=== PATIENT | male | born 1940 | race African-American/Black ===

== ENCOUNTER 2019-06-24 13:24 | Observation (INO) ==
[2019-06-24 13:50] LABS: Basophils # (auto) 0.03 K/uL (0-0.2); Basophils % (auto) 0.4 %; Eosinophils # (auto) 0.11 K/uL (0-0.5); Eosinophils % (auto) 1.4 %; Hematocrit (blood only) 36.2 % (42-52); Hemoglobin 11.7 g/dL (14.0-18.0); Immature Granulocytes # (auto) 0.03 K/uL (0.00-0.02); Immature Granulocytes % (auto) 0.4 %; Lymphocytes # (auto) 1.15 K/uL (1.2-3.4); Lymphocytes % (auto) 15.1 %; Mean Corpuscular Hemoglobin 22.7 pg (25-34); Mean Corpuscular Hgb Conc 32.3 g/dL (32-36); Mean Corpuscular Volume 70.3 fL (80-100); Mean Platelet Volume 9.7 fL (7.4-10.4); Monocytes # (auto) 0.66 K/uL (0.11-0.59); Monocytes % (auto) 8.6 %; Neutrophils # (auto) 5.66 K/uL (1.4-6.5); Neutrophils % (auto) 74.1 %; Platelet Count 274 K/uL (130-400); RDW Coefficient of Variation 15.6 % (11.5-14.5); RDW Standard Deviation 39.6 fL (36.4-46.3); Red Blood Count 5.15 M/uL (4.7-6.1); White Blood Count 7.64 K/uL (4.8-10.8)
[2019-06-24 14:03] LABS: Albumin Level 3.1 gm/dl (3.4-5.0); BUN Creatinine Ratio 16.6 (10-20); Calcium 9.1 mg/dl (8.5-10.1); Creatinine Clr Calc Pharmacy 31.2 ml/min; Est GFR (African American) 37.1; Potassium 4.3 mmol/L (3.5-5.1)
--- NOTE | 2019-06-24 14:09 | XRay Report ---
XR chest 1V portable CLINICAL HISTORY: weakness COMPARISON STUDY: No previous studies for comparison. FINDINGS: The cardiac and mediastinal contours are normal. There is no evidence of focal pulmonary co nsolidation. There is no evidence of failure. No pleural effusions are visualized.[There is minor lef t midlung zone atelectasis/scarring. IMPRESSION: No active disease in the chest. Electronically signed by: Milton Keyes M.D. 06/24/2019 2:08 PM
[2019-06-24 14:16] LABS: Bilirubin,Total 0.4 mg/dl (0.2-1); Globulin 3.2 gm/dl (2.5-4.0); Thyroid Stimulating Hormone 1.15 uIu/ml (0.300-4.500); Total Protein 6.3 gm/dl (6.4-8.2); Troponin I 0.091 ng/ml (0-0.045)
[2019-06-24] MEDS ORDERED: ASPIRIN CHEW 324 MG PO STA (15:13)
--- NOTE | 2019-06-24 16:31 | Ultrasound Report ---
US venous doppler LE LT CLINICAL HISTORY: swelling lle PAIN. EDEMA. COMPARISON STUDY: No previous studies for comparison. FINDINGS: Real-time and color flow Doppler imaging were performed. Flow was seen within the femoral, popliteal and calf veins with no intraluminal thrombus demonstrated. The saphenous vein is patent. IMPRESSION: No evidence of deep venous thrombosis. The above report was generated using voice recognition software. It may contain grammatical, syntax or spelling errors. Electronically signed by: Armin Culver M.D. 06/24/2019 4:30 PM
--- NOTE | 2019-06-24 19:28 | Emergency Department Note ---
Entered by Brittany King acting as a scribe for Zoran Sharp DO History of Present Illness General Chief complaint: Syncope (Near Syncope) Time Seen by Provider: 06/24/19 13:28 Source: patient History of Present Illness Onset (ago): minute(s) (prior to arrival) Location: head Pain Consistency: + other (episode) Quality: + other (near syncope) Relieved By: not by other (sitting down) Associated symptoms: + denies other symptoms (palpitations, LOC, melena, change in vision, urinary symptoms), + weakness and + other (lightheaded, dizzy, cold, clammy, leg swelling); no chest pain, no headaches, no nausea/vomiting and no shortness of breath The patient is a 78 year old male who presents to the Emergency Room with complaints of an episode of near syncope occurring prior to arrival. The patient states that this morning he wasnt feeling greatest. He states that he decided to go for a walk in the mall and when he did, he started to feel lightheaded and dizzy. He reports that he tried sitting down, but it didnt improve. He reports that he just felt weak, cold, and clammy. He states that since it did not get better, he called 911 and had EMS get him. The patient notes that he was inpatient last week at [facility] and had a cardiac catheterization done 5 days ago. He notes that it was clean, but he was diagnosed with a peptic ulcer although he did not have an EGD done. The patient complains of swelling feet. The patient denies chest pain, palpitations, nausea, loss of conscious, melena, vomiting, headache, change in vision, shortness of breath, urinary symptoms, a history of blood clots, and recent travel. Home Medications Home Medications Medication Instructions Recorded Confirmed Type atorvastatin 20 mg PO DAILY 06/24/19 06/24/19 History carvedilol 25 mg PO BID 06/24/19 06/24/19 History clonidine HCl 0.1 mg PO DAILY 06/24/19 06/24/19 History famotidine 40 mg PO DAILY 06/24/19 06/24/19 History felodipine 10 mg PO DAILY 06/24/19 06/24/19 History isosorbide mononitrate 30 mg PO DAILY 06/24/19 06/24/19 History lisinopril 40 mg PO DAILY 06/24/19 06/24/19 History metoprolol succinate 200 mg PO DAILY 06/24/19 06/24/19 History omeprazole 40 mg PO DAILY 06/24/19 06/24/19 History prednisone 1 mg PO TID 06/24/19 06/24/19 History prednisone 5 - 20 mg PO DAILY 06/24/19 06/24/19 History sitagliptin [Januvia] 50 mg PO DAILY 06/24/19 06/24/19 History sucralfate 1 g PO .QIDM 06/24/19 06/24/19 History Allergies Allergy/AdvReac Type Severity Reaction Status Date / Time latex Allergy Intermediate Rash Unverified 06/24/19 14:59 Past Med/Surg History Medical History Hepatitis B Surgical History Hx of cardiac cath Family History Other Family history non-contributory Social History Preferred Language: Greek Communication Ability: Effective Vegetable Worker Required: No Beliefs That Will Affect Care: None Current Living Situation: Alone Other Information That Helps Us Care for You: No Feels Safe at Home: Yes Safety Concerns: Feels Safe At This Time Smoking Status: Former smoker Hx Alcohol Use: No Hx Substance Use: No Review of Systems See HPI for pertinent positives & negatives. and A total of 10 systems reviewed and were otherwise negative Physical Exam Vital Signs Vital Signs - 24 hr 06/24/19 13:29 06/24/19 13:31 06/24/19 13:39 Temperature 36.9 C Temperature Source Oral Pulse Rate 58 L 61 59 L Pulse Rate [Left] Pulse Rate from SpO2 Sensor 59 L 61 Pulse Rhythm Regular Pulse Strength Normal Respiratory Rate 17 19 20 Respiratory Effort / Characteristics Non-Labored Spontaneous Respiratory Depth Normal Respiratory Pattern Regular Blood Pressure 117/61 117/61 Blood Pressure [Left Arm] Blood Pressure Mean 81 79 Blood Pressure Mean [Left Arm] Blood Pressure Position Sitting Blood Pressure Position [Left Arm] Pulse Oximetry 95 95 95 Oxygen Delivery Method Room Air Sepsis Recent Fever Within 48 Hours No Sepsis New/Unexplained Change in Mental Status No Sepsis Action Taken by Nursing No Action Required 06/24/19 13:40 06/24/19 13:43 06/24/19 13:50 Temperature Temperature Source Pulse Rate 60 60 Pulse Rate [Left] Pulse Rate from SpO2 Sensor 60 61 Pulse Rhythm Pulse Strength Respiratory Rate 17 19 Respiratory Effort / Characteristics Respiratory Depth Respiratory Pattern Blood Pressure Blood Pressure [Left Arm] Blood Pressure Mean Blood Pressure Mean [Left Arm] Blood Pressure Position Blood Pressure Position [Left Arm] Pulse Oximetry 96 95 96 Oxygen Delivery Method Room Air Sepsis Recent Fever Within 48 Hours Sepsis New/Unexplained Change in Mental Status Sepsis Action Taken by Nursing 06/24/19 14:00 06/24/19 14:10 06/24/19 14:20 Temperature Temperature Source Pulse Rate 59 L 61 61 Pulse Rate [Left] Pulse Rate from SpO2 Sensor 59 L 61 64 Pulse Rhythm Pulse Strength Respiratory Rate 17 18 16 Respiratory Effort / Characteristics Respiratory Depth Respiratory Pattern Blood Pressure Blood Pressure [Left Arm] Blood Pressure Mean Blood Pressure Mean [Left Arm] Blood Pressure Position Blood Pressure Position [Left Arm] Pulse Oximetry 96 95 95 Oxygen Delivery Method Sepsis Recent Fever Within 48 Hours Sepsis New/Unexplained Change in Mental Status Sepsis Action Taken by Nursing 06/24/19 14:30 06/24/19 14:40 06/24/19 14:44 Temperature Temperature Source Pulse Rate 59 L 58 L 67 Pulse Rate [Left] Pulse Rate from SpO2 Sensor 59 L 58 L 67 Pulse Rhythm Pulse Strength Respiratory Rate 17 15 19 Respiratory Effort / Characteristics Respiratory Depth Respiratory Pattern Blood Pressure 121/55 L Blood Pressure [Left Arm] Blood Pressure Mean 64 Blood Pressure Mean [Left Arm] Blood Pressure Position Blood Pressure Position [Left Arm] Pulse Oximetry 95 98 98 Oxygen Delivery Method Sepsis Recent Fever Within 48 Hours Sepsis New/Unexplained Change in Mental Status Sepsis Action Taken by Nursing 06/24/19 14:50 06/24/19 15:00 06/24/19 15:01 Temperature Temperature Source Pulse Rate 59 L 60 61 Pulse Rate [Left] Pulse Rate from SpO2 Sensor 59 L 60 62 Pulse Rhythm Pulse Strength Respiratory Rate 18 16 17 Respiratory Effort / Characteristics Respiratory Depth Respiratory Pattern Blood Pressure 127/58 L Blood Pressure [Left Arm] Blood Pressure Mean 88 Blood Pressure Mean [Left Arm] Blood Pressure Position Blood Pressure Position [Left Arm] Pulse Oximetry 96 96 96 Oxygen Delivery Method Sepsis Recent Fever Within 48 Hours Sepsis New/Unexplained Change in Mental Status Sepsis Action Taken by Nursing 06/24/19 15:10 06/24/19 15:20 06/24/19 15:30 Temperature Temperature Source Pulse Rate 59 L 61 60 Pulse Rate [Left] Pulse Rate from SpO2 Sensor 60 61 63 Pulse Rhythm Pulse Strength Respiratory Rate 18 15 16 Respiratory Effort / Characteristics Respiratory Depth Respiratory Pattern Blood Pressure 120/53 L Blood Pressure [Left Arm] Blood Pressure Mean 66 Blood Pressure Mean [Left Arm] Blood Pressure Position Blood Pressure Position [Left Arm] Pulse Oximetry 96 97 96 Oxygen Delivery Method Sepsis Recent Fever Within 48 Hours Sepsis New/Unexplained Change in Mental Status Sepsis Action Taken by Nursing 06/24/19 15:31 06/24/19 15:34 06/24/19 15:40 Temperature Temperature Source Pulse Rate 61 64 Pulse Rate [Left] 62 Pulse Rate from SpO2 Sensor 62 62 Pulse Rhythm Pulse Strength Respiratory Rate 16 20 22 Respiratory Effort / Characteristics Non-Labored Spontaneous Respiratory Depth Respiratory Pattern Blood Pressure Blood Pressure [Left Arm] 120/53 L Blood Pressure Mean Blood Pressure Mean [Left Arm] 75 Blood Pressure Position Blood Pressure Position [Left Arm] Lying Pulse Oximetry 95 96 96 Oxygen Delivery Method Room Air Sepsis Recent Fever Within 48 Hours Sepsis New/Unexplained Change in Mental Status Sepsis Action Taken by Nursing 06/24/19 15:50 06/24/19 16:00 06/24/19 16:01 Temperature Temperature Source Pulse Rate 62 60 63 Pulse Rate [Left] Pulse Rate from SpO2 Sensor 61 60 62 Pulse Rhythm Pulse Strength Respiratory Rate 18 16 22 Respiratory Effort / Characteristics Respiratory Depth Respiratory Pattern Blood Pressure 125/65 Blood Pressure [Left Arm] Blood Pressure Mean 93 Blood Pressure Mean [Left Arm] Blood Pressure Position Blood Pressure Position [Left Arm] Pulse Oximetry 96 96 97 Oxygen Delivery Method Sepsis Recent Fever Within 48 Hours Sepsis New/Unexplained Change in Mental Status Sepsis Action Taken by Nursing 06/24/19 16:36 06/24/19 16:40 06/24/19 16:50 Temperature Temperature Source Pulse Rate 59 L 62 60 Pulse Rate [Left] Pulse Rate from SpO2 Sensor 59 L 63 61 Pulse Rhythm Pulse Strength Respiratory Rate 18 19 16 Respiratory Effort / Characteristics Respiratory Depth Respiratory Pattern Blood Pressure 131/65 Blood Pressure [Left Arm] Blood Pressure Mean 88 Blood Pressure Mean [Left Arm] Blood Pressure Position Blood Pressure Position [Left Arm] Pulse Oximetry 95 95 96 Oxygen Delivery Method Sepsis Recent Fever Within 48 Hours Sepsis New/Unexplained Change in Mental Status Sepsis Action Taken by Nursing 06/24/19 17:00 06/24/19 17:01 06/24/19 17:10 Temperature Temperature Source Pulse Rate 62 58 L 58 L Pulse Rate [Left] Pulse Rate from SpO2 Sensor 62 59 L 59 L Pulse Rhythm Pulse Strength Respiratory Rate 14 19 18 Respiratory Effort / Characteristics Respiratory Depth Respiratory Pattern Blood Pressure 143/69 H Blood Pressure [Left Arm] Blood Pressure Mean 98 Blood Pressure Mean [Left Arm] Blood Pressure Position Blood Pressure Position [Left Arm] Pulse Oximetry 96 96 96 Oxygen Delivery Method Sepsis Recent Fever Within 48 Hours Sepsis New/Unexplained Change in Mental Status Sepsis Action Taken by Nursing 06/24/19 17:20 06/24/19 17:30 06/24/19 17:31 Temperature Temperature Source Pulse Rate 60 66 68 Pulse Rate [Left] Pulse Rate from SpO2 Sensor 60 64 69 Pulse Rhythm Pulse Strength Respiratory Rate 16 17 23 Respiratory Effort / Characteristics Respiratory Depth Respiratory Pattern Blood Pressure 138/73 Blood Pressure [Left Arm] Blood Pressure Mean 89 Blood Pressure Mean [Left Arm] Blood Pressure Position Blood Pressure Position [Left Arm] Pulse Oximetry 95 96 97 Oxygen Delivery Method Sepsis Recent Fever Within 48 Hours Sepsis New/Unexplained Change in Mental Status Sepsis Action Taken by Nursing 06/24/19 17:40 06/24/19 17:50 06/24/19 18:00 Temperature Temperature Source Pulse Rate 61 61 56 L Pulse Rate [Left] Pulse Rate from SpO2 Sensor 61 61 57 L Pulse Rhythm Pulse Strength Respiratory Rate 17 20 17 Respiratory Effort / Characteristics Respiratory Depth Respiratory Pattern Blood Pressure 146/75 H Blood Pressure [Left Arm] Blood Pressure Mean 94 Blood Pressure Mean [Left Arm] Blood Pressure Position Blood Pressure Position [Left Arm] Pulse Oximetry 96 95 96 Oxygen Delivery Method Sepsis Recent Fever Within 48 Hours Sepsis New/Unexplained Change in Mental Status Sepsis Action Taken by Nursing 06/24/19 18:01 06/24/19 18:10 06/24/19 18:20 Temperature Temperature Source Pulse Rate 68 61 64 Pulse Rate [Left] Pulse Rate from SpO2 Sensor 69 61 62 Pulse Rhythm Pulse Strength Respiratory Rate 18 15 20 Respiratory Effort / Characteristics Respiratory Depth Respiratory Pattern Blood Pressure Blood Pressure [Left Arm] Blood Pressure Mean Blood Pressure Mean [Left Arm] Blood Pressure Position Blood Pressure Position [Left Arm] Pulse Oximetry 94 97 96 Oxygen Delivery Method Sepsis Recent Fever Within 48 Hours Sepsis New/Unexplained Change in Mental Status Sepsis Action Taken by Nursing 06/24/19 18:30 Temperature Temperature Source Pulse Rate 61 Pulse Rate [Left] Pulse Rate from SpO2 Sensor 60 Pulse Rhythm Pulse Strength Respiratory Rate 19 Respiratory Effort / Characteristics Respiratory Depth Respiratory Pattern Blood Pressure 137/74 Blood Pressure [Left Arm] Blood Pressure Mean 78 Blood Pressure Mean [Left Arm] Blood Pressure Position Blood Pressure Position [Left Arm] Pulse Oximetry 96 Oxygen Delivery Method Sepsis Recent Fever Within 48 Hours Sepsis New/Unexplained Change in Mental Status Sepsis Action Taken by Nursing GENERAL: sitting up in bed, chronically ill appearing, no acute distress, nontoxic EYE EXAM: normal conjunctiva OROPHARYNX: no exudate, no erythema, lips, buccal mucosa, and tongue normal and mucous membranes are moist NECK: supple, no nuchal rigidity, no adenopathy, non-tender LUNGS: Clear to auscultation. Normal chest wall mechanics HEART: no murmurs, S1 normal and S2 normal ABDOMEN: abdomen soft, non-tender, normo-active bowel sounds, no masses, no rebound or guarding. BACK: Back is symmetrical on inspection and there is no deformity, no midline tenderness, no CVA tenderness. SKIN: no rashes and no bruising UPPER EXTREMITIES: upper extremities are grossly normal. LOWER EXTREMITIES: No pitting edema. NEURO EXAM: Normal sensorium, cranial nerves II-XII intact, normal speech, no weakness of arms, no weakness of legs. No drift. Finger to nose intact. Gross sensation intact. Course Course ED COURSE: Vital signs were reviewed and showed situational hypertension. The patients medical record was reviewed The above diagnostic studies were performed and reviewed. ED treatments and interventions as stated above. 1328: The resident, Dulce Maria Kirk, performed her initial evaluation on the patient at this time. 1422: The patient was evaluated in room B6. A complete history and physical examination was performed. 1458: Upon reevaluation, the patient is resting comfortably. I discussed my findings with the patient and he understands and agrees with the treatment plan. Based on the patients age, coexisting illnesses, exam and lab findings the decision to treat as an inpatient was made. The patient remained stable while under my care. The patient will be evaluated for further management. 1513: I discussed the patient's case with Dr. Olmstead- [facility] [place] Hospitalist. She will evaluate the patient for further management. Administered Medications Discontinued Medications Aspirin (Aspirin) 324 mg PO NOW STA Stop: 06/24/19 15:14 Last Admin: 06/24/19 15:42 Dose: 324 mg Documented by: [id number] Medical Decision Making Differential Diagnosis Differential diagnosis includes etiologies such as benign positional vertigo, dehydration, hypovolemia, anemia, tumor, infection, hypoglycemia, electrolyte abnormalities, cardiac sources, intracerebral event, toxicologic, neurologic, as well as others were entertained. Medical Records Attestation: I reviewed the patient's medical records. Home Medications Current Medication List: was personally reviewed by me Laboratory Data Attestation: I reviewed the patient's lab results. Result diagrams: 06/24/19 13:30 06/24/19 13:30 Lab Results 06/24/19 06/24/19 06/24/19 Range/Units 13:30 13:30 17:08 WBC 7.64 (4.8-10.8) K/uL RBC 5.15 (4.7-6.1) M/uL Hgb 11.7 L (14.0-18.0) g/dL Hct 36.2 L (42-52) % MCV 70.3 L (80-100) fL MCH 22.7 L (25-34) pg MCHC 32.3 (32-36) g/dL RDW Std Deviation 39.6 (36.4-46.3) fL RDW Coeff of Derek 15.6 H (11.5-14.5) % Plt Count 274 (130-400) K/uL MPV 9.7 (7.4-10.4) fL Immature Gran % (Auto) 0.4 % Neut % (Auto) 74.1 % Lymph % (Auto) 15.1 % Wise % (Auto) 8.6 % Eos % (Auto) 1.4 % Baso % (Auto) 0.4 % Immature Gran # (Auto) 0.03 H (0.00-0.02) K/uL Neut # (Auto) 5.66 (1.4-6.5) K/uL Lymph # (Auto) 1.15 L (1.2-3.4) K/uL Wise # (Auto) 0.66 H (0.11-0.59) K/uL Eos # (Auto) 0.11 (0-0.5) K/uL Baso # (Auto) 0.03 (0-0.2) K/uL Sodium 143 (136-145) mmol/L Potassium 4.3 (3.5-5.1) mmol/L Chloride 113 H (98-107) mmol/L Carbon Dioxide 23 (21-32) mmol/L Anion Gap 8.0 (3-11) BUN 32 H (7-18) mg/dl Creatinine 1.95 H (0.6-1.4) mg/dl Est Cr Clr Drug Dosing 31.2 ml/min Est GFR ( Amer) 37.1 Est GFR (Non-Af Amer) 32.0 BUN/Creatinine Ratio 16.6 (10-20) Glucose 106 H (70-99) mg/dl Calcium 9.1 (8.5-10.1) mg/dl Total Bilirubin 0.4 (0.2-1) mg/dl AST 15 (15-37) U/L ALT 23 (12-78) U/L Alkaline Phosphatase 66 (45-117) U/L Troponin I 0.091 H* 0.093 H* (0-0.045) ng/ml Total Protein 6.3 L (6.4-8.2) gm/dl Albumin 3.1 L (3.4-5.0) gm/dl Globulin 3.2 (2.5-4.0) gm/dl Albumin/Globulin Ratio 1.0 (0.9-2) TSH 1.150 (0.300-4.500) uIu/ml Imaging Data Radiologist's Impression: Radiology results as stated below per my review and the radiologist's interpretation: XR chest 1V portable CLINICAL HISTORY: weakness COMPARISON STUDY: No previous studies for comparison. FINDINGS: The cardiac and mediastinal contours are normal. There is no evidence of focal pulmonary consolidation. There is no evidence of failure. No pleural effusions are visualized.[There is minor left midlung zone atelectasis/scarring. IMPRESSION: No active disease in the chest. Electronically signed by: Milton Keyes M.D. 06/24/2019 2:08 PM US venous doppler LE LT CLINICAL HISTORY: swelling lle PAIN. EDEMA. COMPARISON STUDY: No previous studies for comparison. FINDINGS: Real-time and color flow Doppler imaging were performed. Flow was seen within the femoral, popliteal and calf veins with no intraluminal thrombus demonstrated. The saphenous vein is patent. IMPRESSION: No evidence of deep venous thrombosis. The above report was generated using voice recognition software. It may contain grammatical, syntax or spelling errors. Electronically signed by: Armin Culver M.D. 06/24/2019 4:30 PM ECG Data Attestation: I personally reviewed and interpreted this ECG as follows: Indication: + syncope (near) and + weakness Rate (beats per minute): 56 Rhythm: + sinus bradycardia ECG ST segments: + ST depression (inferior and lateral leads) and + T-wave inversions (inferior and lateral leads) ECG Findings: + Other (QT-c normal) Comparison ECG Date: no prior available Blood Pressure Blood Pressure Findings: Elevated blood pressure Blood Pressure Disposition: elevated BP felt to be situational MDM Narrative Patient is a 78-year-old male who presents the ER for dizziness and lightheadedness with walking. Patient notes he was slightly short of breath. EMS arrived and was found to have systolic blood pressure of 80. Patient had a recent undescended discharged to an outside facility about 10 days ago and had a catheterization which was clean per report. EKG was obtained and showed ST wave changes throughout and there is no old to compare to. IV was established blood work was obtained and showed no significant leukocytosis or anemia. BMP with a creatinine 1.9 without any previous. Troponin was elevated at 0.093. TSH was unremarkable. Unable to obtain records although we tried on multiple occasions. With his presumed previous clean cath I do not think it was close enough for this troponin to be elevated secondary to this. As he was symptomatic question if he may have had an apparent rhythm but uncertain at this time. Patient family were updated bedside discussed with the hospitalist for observation. He is asymptomatic at this time. Impression & Plan Non-ST elevation MN (NSTEMI), Elevated troponin, Shortness of breath, Weakness, Lightheadedness, Abnormal ECG Discharge Plan Visit Data *Final* Discharge Date/Time: 06/24/19 19:02 Chief Complaint: Syncope (Near Syncope) ED Provider: Zoran Sharp ED Midlevel Provider: Dulce Maria Kirk Discharge Problem: Non-ST elevation MN (NSTEMI), Elevated troponin, Shortness of breath, Weakness, Lightheadedness, Abnormal ECG Patient Disposition: Admitted As Inpatient Discharge Instructions Interventions: ED Discharge Assessment Last Done: 06/24/19 19:02 The scribe's documentation has been prepared under my direction and personally reviewed by me in its entirety. I confirm that the note above accurately reflects all work, treatment, procedures, and medical decision making performed by me.
[2019-06-24] MEDS ORDERED: POLYETHYLENE (MIRALAX) 17 GM PACK PO PRN (19:31)
[2019-06-24] MEDS ORDERED: CARBOHYDRATES FOR HYPOGLYCEMIA PO PRN (19:31)
[2019-06-24] MEDS ORDERED: DEXTROSE 50% 50 ML SYRINGE IV PRN (19:31)
[2019-06-24] MEDS ORDERED: ALUMINUM/MAGNESIUM SUSP 30 ML UDC PO PRN (19:31)
[2019-06-24] MEDS ORDERED: GLUCAGON FOR INJ 1 MG VIAL SQ PRN (19:31)
[2019-06-24] MEDS ORDERED: GLUCOSE 10 TABS/TUBE PO PRN (19:31)
[2019-06-24] MEDS ORDERED: MAGNESIUM HYDROXIDE SUSP 30 ML UDC PO PRN (19:31)
[2019-06-24] MEDS ORDERED: ACETAMINOPHEN 325 MG TAB PO PRN (19:31)
[2019-06-24] MEDS ORDERED: GLUCOSE 40% GEL 15 GM TUBE PO PRN (19:31)
[2019-06-24] MEDS ORDERED: PHARMACY GLYCEMIC MGMT CONSULT PRN (19:42)
[2019-06-24 20:58] LABS: Troponin I 0.093 ng/ml (0-0.045)
[2019-06-24] MEDS: carvediloL 12.5 MG TAB PO SCH (21:06)
[2019-06-24] MEDS: SODIUM CHLORIDE 0.9% 1000ML 1,000 ML IV SCH (21:06)
[2019-06-24] MEDS: INSULIN ASPART 100 UNITS/ML 3 ML PEN SC SCH (21:48)
--- NOTE | 2019-06-25 00:07 | History & Physical Report ---
Date of Service June 25, 2019 Assessment & Plan (1) Elevated troponin: Appears to be related to demand ischemia rather than NSTEMI. Patient denies chest pain. Admit to [facility] on telemetry on observation. Vital signs every 4 hours. Troponin every 6 hours with EKG. We will considering starting heparin drip on the patient for elevated troponin and ST segment elevation in inferior lateral leads but due to patient's recent peptic ulcer discovery and no available documentation about EGD, it was risk over benefit and we decided to continue following patient troponin rather than starting heparin drip. Troponin did not significantly rise from 1330 p.m. today when was 0.0 9 to 17:08 when was 0.093. This does not appear as an NStemi, then rather as increased troponin due to poor clearance through kidneys and situation where patient has possibly acute or chronic kidney insufficiency which we cannot determine because there is no available paperwork from the past. Replenish electrolytes. TTE in a.m. Consult cardiology. DVT prophylaxis SCDs and teds since patient has peptic ulcer and EGD was not done. Full code Present on Admission?: Yes (2) Shortness of breath: As above Duo nebs PRN every 4 hours. BNP pending Chest x-ray is negative for pulmonary consolidation or congestion. DVT negative for deep Raynaud's thrombosis. Present on Admission?: Yes (3) Weakness: Physical and Occupational Therapy Present on Admission?: Yes (4) Lightheadedness: Could be result of increased dosage of patient antihypertensive medication. Patient was also hypotensive on arrival. His blood pressure was 80/60. This could be related to polypharmacy. We are holding for now : Clonidine 0.1 mg p.o. daily, lisinopril 40 mg p.o. daily, metoprolol succinate 200 mg p.o. daily. We continued: Isosorbide mononitrate 30 mg p.o. daily, carvedilol 12.5 mg p.o. twice a day-decrease the dose from 25 mg twice a day, felodipine 10 mg p.o. daily. Magnesium hydroxide 30 mils p.o. every 12 hours as needed. Continue monitoring blood pressure and blood pressure medicine as needed or increase the dose as patient can tolerate. [place] blood pressure for patient would be less than 140/85. Present on Admission?: Yes (5) Abnormal ECG: Plan to consult cardiology for further evaluation and treatment. EKG shows sinus bradycardia with ST and T wave abnormalities especially in V4 V5 and V6. Present on Admission?: Yes (6) Hepatitis B: Will check hepatitis panel and hepatitis B for quant. Plan to consult GI for peptic ulcer as well. Present on Admission?: Yes (7) Acute kidney injury: Avoid nephrotoxic agents. Continue monitoring creatinine and GFR. Avoid contrast. Present on Admission?: Yes History of Present Illness Chief Complaint: Dizziness, polypharmacy Primary Care Provider: NO PCP Patient is a 78 years old male with past medical history of hepatitis B, peptic ulcer, history of cardiac cath, non-ST segment elevation, who presented to the emergency room with complaint of lightheadedness. The patient states that this morning he took all of his pills as he supposed to and then he went to the mall where he started to feel lightheaded and dizzy patient reports that he tried to sit down but that did not help. Patient said also D that he felt weak clammy and cold. For this reason patient called 911 and EMS picked him up and brought him to the hospital. Patient was recently in fact last week to do voice and had cardiac catheterization done 5 days ago. At that time they did not find any obstruction nor nor they put any stent. He was also diagnosed with peptic ulcer even though he did not have a EGD done. Patient said at the discharge home from the [facility] today increase the dosage of his medication. Patient was afraid that this could be a reason for him feeling so lightheaded and dizzy. He said that he checked his blood pressure this morning before taking pills. He said he his blood pressure was 164/105. Labs are reviewed: Sodium 143, potassium 4.3, BUN 32, creatinine 1.95, GFR 32, troponin 0.0 91, the second troponin was 0.0 93, BNP 963 TSH 1.15. WBC 7.64, hemoglobin 11.7, hematocrit 36.2, platelets 274. Decision was made to admit patient to observation to [facility] on telemetry for elevated troponin, dizziness. Allergies Allergy/AdvReac Type Severity Reaction Status Date / Time latex Allergy Intermediate Rash Unverified 06/24/19 14:59 Home Medications Home Medications Medication Instructions Recorded Confirmed Type atorvastatin 20 mg PO DAILY 06/24/19 06/24/19 History carvedilol 25 mg PO BID 06/24/19 06/24/19 History clonidine HCl 0.1 mg PO DAILY 06/24/19 06/24/19 History famotidine 40 mg PO DAILY 06/24/19 06/24/19 History felodipine 10 mg PO DAILY 06/24/19 06/24/19 History isosorbide mononitrate 30 mg PO DAILY 06/24/19 06/24/19 History lisinopril 40 mg PO DAILY 06/24/19 06/24/19 History metoprolol succinate 200 mg PO DAILY 06/24/19 06/24/19 History omeprazole 40 mg PO DAILY 06/24/19 06/24/19 History prednisone 1 mg PO TID 06/24/19 06/24/19 History prednisone 5 - 20 mg PO DAILY 06/24/19 06/24/19 History sitagliptin [Januvia] 50 mg PO DAILY 06/24/19 06/24/19 History sucralfate 1 g PO .QIDM 06/24/19 06/24/19 History Past Med/Surg History Medical History Hepatitis B Surgical History Hx of cardiac cath Family History Other Family history non-contributory Social History Preferred Language: Hungarian Communication Ability: Effective Clinical Documentation Specialist Required: No Beliefs That Will Affect Care: None Current Living Situation: Alone Other Information That Helps Us Care for You: No Feels Safe at Home: Yes Safety Concerns: Feels Safe At This Time Smoking Status: Former smoker Hx Alcohol Use: No Hx Substance Use: No Review of Systems Review of Systems: All systems reviewed & are unremarkable except as noted in HPI & below Results & Data Vital Signs (Past 12 Hours) Vital Signs Temp Pulse Pulse Resp BP BP Pulse Ox 06/24/19 23:53 59 L 06/24/19 23:33 37.1 C 56 L 18 162/73 H 95 06/24/19 21:31 78 06/24/19 19:31 37.3 C 70 18 129/69 96 06/24/19 18:50 57 L 16 95 06/24/19 18:40 64 18 97 06/24/19 18:31 60 19 96 06/24/19 18:30 61 19 137/74 96 06/24/19 18:20 64 20 96 06/24/19 18:10 61 15 97 06/24/19 18:01 68 18 94 06/24/19 18:00 56 L 17 146/75 H 96 06/24/19 17:50 61 20 95 06/24/19 17:40 61 17 96 06/24/19 17:31 68 23 97 06/24/19 17:30 66 17 138/73 96 06/24/19 17:20 60 16 95 06/24/19 17:10 58 L 18 96 06/24/19 17:01 58 L 19 96 06/24/19 17:00 62 14 143/69 H 96 06/24/19 16:50 60 16 96 06/24/19 16:40 62 19 95 06/24/19 16:36 59 L 18 131/65 95 06/24/19 16:01 63 22 97 06/24/19 16:00 60 16 125/65 96 06/24/19 15:50 62 18 96 06/24/19 15:40 64 22 96 06/24/19 15:34 62 20 120/53 L 96 06/24/19 15:31 61 16 95 06/24/19 15:30 60 16 120/53 L 96 06/24/19 15:20 61 15 97 06/24/19 15:10 59 L 18 96 06/24/19 15:01 61 17 96 06/24/19 15:00 60 16 127/58 L 96 06/24/19 14:50 59 L 18 96 06/24/19 14:44 67 19 121/55 L 98 06/24/19 14:40 58 L 15 98 06/24/19 14:30 59 L 17 95 06/24/19 14:20 61 16 95 06/24/19 14:10 61 18 95 06/24/19 14:00 59 L 17 96 06/24/19 13:50 60 19 96 06/24/19 13:43 95 06/24/19 13:40 60 17 96 06/24/19 13:39 36.9 C 59 L 20 117/61 95 06/24/19 13:31 61 19 95 06/24/19 13:29 58 L 17 117/61 95 Code Status & VTE Plan Code Status Full code VTE Prophylaxis Plan VTE Prophylaxis will be ordered: Yes PG Care Time/CCT Total # of Minutes Spent Total Time Spent with Patient: Total time spent is greater than 50% in coordination of care (as documented) at patient's floor/unit and/or counseling patient:
[2019-06-25] MEDS: PANTOprazole 40 MG in SYRINGE 0 ML IV SCH ×2 (01:14→11:43)
[2019-06-25 01:51] LABS: Appearance Urine Clear (Clear); Bacteria Urine Automated Negative (Negative); Bilirubin Urine Negative (Negative); Blood Urine Negative (Negative); Color Urine Yellow; Glucose Urine UA 1+ (Negative); Ketones Urine Negative (Negative); Leukocyte Esterase Urine Negative (Negative); Nitrite Urine Negative (Negative); Protein Urine 1+ (Negative); RBC Urine Automated 0-4 /hpf (0-4); Specific Gravity Urine 1.019 (1.000-1.030); Urobilinogen Urine Negative (Negative)
[2019-06-25 07:13] LABS: Basophils # (auto) 0.01 K/uL (0-0.2); Basophils % (auto) 0.1 %; Eosinophils # (auto) 0.16 K/uL (0-0.5); Hematocrit (blood only) 34.1 % (42-52); Hemoglobin 11.2 g/dL (14.0-18.0); Immature Granulocytes # (auto) 0.02 K/uL (0.00-0.02); Immature Granulocytes % (auto) 0.2 %; Lymphocytes # (auto) 1.23 K/uL (1.2-3.4); Lymphocytes % (auto) 15.1 %; Mean Corpuscular Hgb Conc 32.8 g/dL (32-36); Mean Corpuscular Volume 70.2 fL (80-100); Mean Platelet Volume 9.4 fL (7.4-10.4); Monocytes % (auto) 6.1 %; Neutrophils # (auto) 6.23 K/uL (1.4-6.5); Neutrophils % (auto) 76.5 %; Platelet Count 251 K/uL (130-400); RDW Coefficient of Variation 15.5 % (11.5-14.5); RDW Standard Deviation 39.3 fL (36.4-46.3); Red Blood Count 4.86 M/uL (4.7-6.1); White Blood Count 8.15 K/uL (4.8-10.8)
[2019-06-25] MEDS: SUCRALFATE 1 GM TAB PO SCH ×2 (07:45→11:28)
[2019-06-25] MEDS: carvediloL 12.5 MG TAB PO SCH (07:46)
[2019-06-25 07:52] LABS: Albumin Level 2.8 gm/dl (3.4-5.0); BUN Creatinine Ratio 19.8 (10-20); Calcium 8.3 mg/dl (8.5-10.1); Creatinine Clr Calc Pharmacy 38.8 ml/min; Est GFR (African American) 48.2; Est GFR (Non-African American) 41.6; Potassium 3.5 mmol/L (3.5-5.1)
[2019-06-25 07:55] LABS: Estimated Average Glucose 148 mg/dl; Hemoglobin A1C 6.8 % (4.5-5.6)
[2019-06-25 07:58] LABS: Bilirubin,Total 0.5 mg/dl (0.2-1); Globulin 2.9 gm/dl (2.5-4.0); Total Protein 5.7 gm/dl (6.4-8.2); Troponin I 0.104 ng/ml (0-0.045)
--- NOTE | 2019-06-25 08:19 | CT Scan Report ---
CT abdomen w oral con only CLINICAL HISTORY: 78 years-old Male presenting with peptic ulcer. TECHNIQUE: Multidetector CT of the abdomen was performed after the administration of oral contrast on ly. IV contrast: None. One or more dose lowering techniques were used consistent with the principles of ALARA (as low as reasonably achievable), including automatic exposure control, mA or kV adjustment to individual patient size, and/or use of iterative reconstruction. COMPARISON: None. CT DOSE (mGy.cm): The estimated cumulative dose is 217.67. FINDINGS: Bench Press Operator topogram: Unremarkable. Lung bases: Mild multichamber enlargement of the heart. Coronary artery calcification. No pericardial or pleural effusion. Minimal dependent changes likely atelectasis. Liver: Congenital hypoplasia of the medial segments of the left hepatic lobe. Normal liver density. Biliary: No gross biliary ductal dilatation allowing for noncontrast technique. Normal gallbladder. Pancreas: Normal noncontrast appearance. Spleen: Normal. Splenule noted. Adrenal glands: 1.2 cm nodule consistent with benign adenoma by density in the right adrenal gland. N ormal noncontrast appearance of the left adrenal gland. Kidneys and ureters: Several renal cysts are suggested. Several have peripheral foci of calcification , likely Bosniak 2 or Bosniak 2F lesion). No nephrolithiasis or hydronephrosis. Ureters nondistended. Bowel: Normal appendix. No bowel obstruction. The stomach does not demonstrate focal wall thickening or perigastric inflammatory change. No evidence of extraluminal oral contrast to suggest perforation. Peritoneal cavity: No free fluid or intraperitoneal gas. Lymph nodes: No gross lymphadenopathy allowing for noncontrast technique. Vasculature: Atherosclerosis of the normal caliber abdominal aorta. Abdominal wall: Diastasis of the rectus abdominis. Limited loop of small bowel mildly protrudes in th e diastatic abdominal rectus in the peribronchial region. No resulting obstruction. Musculoskeletal: Degenerative changes of the spine. IMPRESSION: 1. Allowing for noncontrast technique, no gastric wall thickening or perigastric inflammatory change to suggest the site of the reported peptic ulcer. No evidence of extraluminal oral contrast to sugge st perforation. 2. Allowing for noncontrast technique, no acute intra-abdominal pathology. 3. 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 4. Extensive bilateral renal cysts, some of which are minimally complex. These are incompletely elaine acterized on this nondedicated noncontrast study. Further evaluation with renal ultrasound should be considered. 5. Mild cardiomegaly. Electronically signed by: Solomon Arellano M.D. 06/25/2019 8:17 AM
[2019-06-25] MEDS: INSULIN ASPART 100 UNITS/ML 3 ML PEN SC SCH ×2 (08:29→12:16)
[2019-06-25] MEDS ORDERED: FAMOTIDINE 20 MG TAB PO SCH (09:00)
[2019-06-25] MEDS ORDERED: FELODIPINE 5 MG TABCR PO SCH (09:00)
[2019-06-25] MEDS ORDERED: ISOSORBIDE MONO EXTENDED REL 30 MG TABCR PO SCH (09:00)
[2019-06-25] MEDS ORDERED: ATORVASTATIN 20 MG TAB PO SCH (09:00)
[2019-06-25] MEDS ORDERED: cloNIDine HCl 0.1 MG TAB PO SCH (09:00)
--- NOTE | 2019-06-25 09:34 | Cardiology Consultation ---
Date of Consultation June 25, 2019 Assessment & Plan (1) Near syncope: (2) Elevated troponin: (3) Acute kidney injury: (4) HTN (hypertension): Mr Soto is a 78-year-old -[place] male. Recently, he states that he has not followed with cardiology as an outpatient. [facility] within the last 3 weeks or so. He presented there with complaints of abdominal discomfort and he states he had a cardiac catheterization because of concerns that he had "elevated "cardiac enzymes. He now presents with having had a near syncopal episode at a local shopping mall. He states that multiple medication changes were made in terms of his antihypertensive regimen. His medication program includes carvedilol 25 mg twice daily, clonidine 0.1 mg p.o. daily, felodipine 10 mg daily, isosorbide mononitrate 30 mg daily, lisinopril 40 mg daily, and metoprolol succinate 200 mg daily. Cardiology was consulted this admission due to concern of mild elevation in his troponin in the setting of a moderate degree of renal insufficiency. His creatinine started trending toward normal. He describes having had a work-up for mild elevation in the cardiac enzymes several weeks ago, and he believes his heart arteries were "normal ". His EKG is abnormal, with repolarization changes suggestive of ischemia, versus underlying left ventricular hypertrophy is being another cause of the EKG changes. At this time, I think that obtaining the medical records from his recent admission is of utmost importance. I would like to review his recent cardiac catheterization data, echocardiogram data, and compare his current EKG to the one obtained there to see if the current changes are new or have been observed previously. 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 The discharge summary will be helpful as will help to clarify if he was really discharged on to high-dose beta-blockers, carvedilol plus metoprolol succinate. On admission, his blood pressure is relatively low with systolic reading in the 1 teens which I would speculate is very low for him, it is rebounded to a systolic reading most recently of 212/88. Primary service has already resumed his clonidine, Imdur, felodipine, and carvedilol. Carvedilol dose has been reduced from 25 twice daily to 12.5 mg twice daily. And he is no longer on metoprolol. I think this is a good change to start. I had the patient fill out a records release, and placed the order for HIM (health information management) to help obtain the records. I have changed his echocardiogram order to a limited echo to ensure that he has no new wall motion abnormalities. I reviewed the images of the noncontrast CT of the abdomen pelvis, the heart silhouette is partially visualized, and there are no findings to suggest significant pericardial effusion. In summary, the patient does have a mild elevation his troponin, and an abnormal EKG, with no symptoms suggestive angina. His symptoms of presyncope are likely due to him being on a very aggressive antihypertensive regimen which needs to be adjusted. Agree with eliminating his metoprolol succinate. Outside records will be obtained in order to review his previous echocardiogram, cardiac catheterization, and prior EKG tracing to see if the repolarization changes observed on this admission are new or old. History of Present Illness Attending Physician: Zoran Nguyen, History of Present Illness Rock Soto is a 78 year old male seen in cardiology consultation per the request of Dr Olmstead for the evaluation of presyncope, and elevated troponin. The patient does not follow with our cardiology practice. He resides in [place], [place]. He states that approximately 3 weeks ago he was admitted to [facility] having initially presented with abdominal discomfort. No records are available for review at this time, but the patient describes being told that his "cardiac enzymes were high "and therefore he underwent cardiac catheterization during that admission. He states that he was told that his coronary arteries were "normal". He was discharged with what he describes as having had multiple medication changes made. Review of his medication list reveals that he is on a very aggressive antihypertensive medication regimen. He states that since discharge there, he has had ongoing vague abdominal discomfort although it was better than when he was initially admitted to the other facility 3 weeks ago. Yesterday he was at the local shopping mall in [place] and developed generalized weakness and felt "faint" he felt as if he was going to pass out. On arrival to the emergency room initial vital signs taken on 06/24/2019 included blood pressure 117/61 sinus bradycardia at 58 bpm. His antihypertensive medications were held in the meantime. Laboratory findings are relevant for a microcytic anemia with hemoglobin of 11.2 this morning MCV 70.2. Creatinine was 1.95 on presentation yesterday, and is down to 1.57 today. Troponin I has been mildly elevated on serial measurements, with measurement of 0.091 yesterday at 1330, and 0.104 and ng/ml this morning at 649. Allergies Allergy/AdvReac Type Severity Reaction Status Date / Time latex Allergy Intermediate Rash Unverified 06/24/19 14:59 Home Medications Home Medications Medication Instructions Recorded Confirmed Type atorvastatin 20 mg PO DAILY 06/24/19 06/24/19 History carvedilol 25 mg PO BID 06/24/19 06/24/19 History clonidine HCl 0.1 mg PO DAILY 06/24/19 06/24/19 History famotidine 40 mg PO DAILY 06/24/19 06/24/19 History felodipine 10 mg PO DAILY 06/24/19 06/24/19 History isosorbide mononitrate 30 mg PO DAILY 06/24/19 06/24/19 History lisinopril 40 mg PO DAILY 06/24/19 06/24/19 History metoprolol succinate 200 mg PO DAILY 06/24/19 06/24/19 History omeprazole 40 mg PO DAILY 06/24/19 06/24/19 History prednisone 1 mg PO TID 06/24/19 06/24/19 History prednisone 5 - 20 mg PO DAILY 06/24/19 06/24/19 History sitagliptin [Januvia] 50 mg PO DAILY 06/24/19 06/24/19 History sucralfate 1 g PO .QIDM 06/24/19 06/24/19 History Patient History Medical History Hepatitis B Surgical History Hx of cardiac cath Family History Other Family history non-contributory Social History Preferred Language: Estonian Communication Ability: Effective Microwave Technician Required: No Beliefs That Will Affect Care: None Current Living Situation: Alone Other Information That Helps Us Care for You: No Feels Safe at Home: Yes Safety Concerns: Feels Safe At This Time Smoking Status: Former smoker Hx Alcohol Use: No Hx Substance Use: No Review of Systems Review of Systems: All systems reviewed & are unremarkable except as noted in HPI & below Physical Exam Physical Exam: Temp Pulse Resp BP Pulse Ox 36.8 C 63 18 212/88 H 97 06/25/19 07:37 06/25/19 07:37 06/25/19 07:37 06/25/19 07:37 06/25/19 07:37 Constitutional: WD/WN, vitals as above Respiratory: normal respiratory effort, lungs clear to auscultation Cardiovascular: RRR, no murmur, no edema Gastrointestinal (Abdomen): normal bowel sounds, soft, nontender, no hepatosplenomegaly Skin: no rashes, warm and dry Neurologic: PERRL, EOMI, accommodation nl, no face palsy, no dysarthria Results & Data Vital Signs (Past 12 Hours) Vital Signs Temp Pulse Pulse Resp BP Pulse Ox 06/25/19 07:37 36.8 C 63 18 212/88 H 97 06/25/19 04:55 37.1 C 73 19 186/72 H 95 06/24/19 23:53 59 L 06/24/19 23:33 37.1 C 56 L 18 162/73 H 95 06/24/19 21:31 78 Laboratory Results Cardiac Enzymes 06/24/19 06/24/19 06/24/19 Range/Units 13:30 17:08 19:37 AST 15 (15-37) U/L Troponin I 0.091 H* 0.093 H* 0.093 H* (0-0.045) ng/ml 06/25/19 06/25/19 Range/Units 00:51 06:49 AST 13 L (15-37) U/L Troponin I 0.091 H* 0.104 H* (0-0.045) ng/ml Lipids 06/25/19 Range/Units 06:49 Triglycerides 113 (0-150) mg/dl Cholesterol 114 (0-200) mg/dl HDL Cholesterol 55 mg/dl Cholesterol/HDL Ratio 2 CBC 06/24/19 06/25/19 Range/Units 13:30 06:49 WBC 7.64 8.15 (4.8-10.8) K/uL RBC 5.15 4.86 (4.7-6.1) M/uL Hgb 11.7 L 11.2 L (14.0-18.0) g/dL Hct 36.2 L 34.1 L (42-52) % Plt Count 274 251 (130-400) K/uL Neut # (Auto) 5.66 6.23 (1.4-6.5) K/uL Lymph # (Auto) 1.15 L 1.23 (1.2-3.4) K/uL [place] # (Auto) 0.66 H 0.50 (0.11-0.59) K/uL Eos # (Auto) 0.11 0.16 (0-0.5) K/uL Baso # (Auto) 0.03 0.01 (0-0.2) K/uL Comprehensive Metabolic Panel 06/24/19 06/25/19 Range/Units 13:30 06:49 Sodium 143 144 (136-145) mmol/L Potassium 4.3 3.5 D (3.5-5.1) mmol/L Chloride 113 H 114 H (98-107) mmol/L Carbon Dioxide 23 22 (21-32) mmol/L BUN 32 H 31 H (7-18) mg/dl Creatinine 1.95 H 1.57 H D (0.6-1.4) mg/dl Glucose 106 H 86 (70-99) mg/dl Calcium 9.1 8.3 L (8.5-10.1) mg/dl AST 15 13 L (15-37) U/L ALT 23 22 (12-78) U/L Alkaline Phosphatase 66 60 (45-117) U/L Total Protein 6.3 L 5.7 L (6.4-8.2) gm/dl Albumin 3.1 L 2.8 L (3.4-5.0) gm/dl Intake and Output 06/24/19 06/25/19 06/25/19 22:59 06:59 14:59 Intake Total 100 / 100 Output Total 200 / 500 300 / 300 Balance 100 / -400 -200 / -400 -300 / -300 Intake: Oral 100 / 100 Output: Urine 200 / 500 300 / 300 Other: Other Intake Source sips # Unmeasured Voids 1 Weight 82.4 kg 82.5 kg Diagnostic Findings EKG performed 06/24/2019 at 1327 reviewed independently revealed sinus bradycardia 56 bpm, voltage criteria for LVH, repolarization changes noted in the inferior and lateral leads in the form of T wave inversion suggestive of possible inferolateral ischemia. Left ventricular hypertrophy however is another possibility.
[2019-06-25] MEDS: SODIUM CHLORIDE 0.9% 1000ML 1,000 ML IV SCH (09:42)
[2019-06-25 09:55] LABS: Hepatitis B Surface Antigen Neg (Neg)
[2019-06-25 10:24] LABS: Hepatitis C IgG 13Yrs+Old_Rflx Neg (Neg)
--- NOTE | 2019-06-25 10:39 | Discharge Summary ---
Date of Service June 25, 2019 Admission HPI Per Admitting Provider Patient is a 78 years old male with past medical history of hepatitis B, peptic ulcer, history of cardiac cath, non-ST segment elevation, who presented to the emergency room with complaint of lightheadedness. The patient states that this morning he took all of his pills as he supposed to and then he went to the mall where he started to feel lightheaded and dizzy patient reports that he tried to sit down but that did not help. Patient said also that he felt weak clammy and cold. For this reason patient called 911 and EMS picked him up and brought him to the hospital. Patient was recently in fact last week to do voice and had cardiac catheterization done 5 days ago. At that time they did not find any obstruction nor nor they put any stent. He was also diagnosed with peptic ulcer even though he did not have a EGD done. Patient said at the discharge home from the [facility] today increase the dosage of his medication. Patient was afraid that this could be a reason for him feeling so lightheaded and dizzy. He said that he checked his blood pressure this morning before taking pills. He said he his blood pressure was 164/105. Labs are reviewed: Sodium 143, potassium 4.3, BUN 32, creatinine 1.95, GFR 32, troponin 0.0 91, the second troponin was 0.0 93, BNP 963 TSH 1.15. WBC 7.64, hemoglobin 11.7, hematocrit 36.2, platelets 274. Decision was made to admit patient to observation to [facility] on telemetry for elevated troponin, dizziness. Principal Diagnosis Hypotension Discharge Exam Constitutional WD/WN, vitals as above Respiratory normal respiratory effort, lungs clear to auscultation Cardiovascular RRR, no murmur, no edema Gastrointestinal (Abdomen) normal bowel sounds, soft, nontender, no hepatosplenomegaly Skin no rashes, warm and dry Psychiatric A+Ox3, euthymic affect Discharge Data Allergies Allergy/AdvReac Type Severity Reaction Status Date / Time latex Allergy Intermediate Rash Unverified 06/24/19 14:59 Consultations 06/24/19 15:13 ED Decision to Admit Stat ED Decision to Admit Stat 06/25/19 08:57 Consult Health Information Management Routine 06/25/19 09:50 Consult Cardiology Routine Ordered Studies 06/24/19 15:13 US venous doppler LE LT Stat 06/25/19 00:21 CT abdomen w oral con only Routine Hospital Course (1) Near syncope: 78 year old male with past medical history of HTN, hepatitis B, peptic ulcer, history of cardiac catheterization 10 days ago presented for near syncopal event. Near-Syncope: - Pt found on admission to have systolics in the 80s with associated weakness. Pt was found to be on 6 different antihypertensives including two different beta blockers (clonidine, lisinopril, metoprolol, felodipine, isosorbide mononitrate, carvedilol). - Pt returned to normotensive with d/c of lisinopril and metoprolol. - Will continue to hold in outpatient until patient has an opportunity to see his PCP to discuss further titration. - Cardiac workup included EKG which showed some ST elevations which diminished with repeat EKGS, and troponins elevated to 0.090-0.10 without further elevation . - Echocardiogram showed no hypokinesis and no pericardial effusion. - By this time patient's symptoms had improved with fluids and d/c of several of his antihypertensives as above. Elevated troponin: - Appears to be either related to demand ischemia in the setting of hypoperfusion or poor clearance from renal function rather than NSTEMI. Patient denies chest pain. Shortness of breath: - Chest x-ray was negative for pulmonary consolidation or congestion. - Venous dopplers negative for DVT. - again likely due to demand ischemia. History of Peptic Ulcer: - will continue home omeprazole 40mg daily and he will follow with PCP regarding further management. - no signs or symptoms of bleeding here. - pt stable on discharge. - has EGD/colonoscopy with GI in July. Acute kidney injury: - Cr decreased 1.9 -> 1.57 while here with IV hydration. - Will follow up with PCP. - will continue to hold lisinopril until PCP appointment. Hx of Polymyalgia Rheumatica: - is on a steroid taper per his PCP; continue. (2) HTN (hypertension): (3) Acute kidney injury: (4) Elevated troponin: (5) Hepatitis B: (6) Hx of cardiac cath: Total Time Total Time Spent Total Time Spent (In Minutes): >30 Discharge Plan Discharge Items Patient Disposition: Home - Self-Care Reason For Visit: PRESYNCOPE,HYPOTENSION,DIZZINESS Discharge Diagnosis: low blood pressure Condition on Discharge: Good Activity: Resume your previous activity Non-emergency contact: Primary Care Provider and Hospitalist Call non-emergency contact if: you have any medication questions, your symptoms worsen and your temperature is above 101 Follow-up/Referrals: ELIZABETH RAYO D.O. [Primary Care Provider] - (Needs follow up within the week) Diet: Carb Consistent or DM2 and Heart Healthy Addtl Attending Provider Instructions: You were admitted to the hospital due to feeling weak, and found to have a very low blood pressure when you got here. You also had some increase in your heart enzymes, so we had cardiology see you. We also did an echocardiogram of your heart to make sure it was functioning well, which it is. Cardiology felt safe to send you home on a different medication regimen as follows: 1)For your blood pressure, you will take clonidine 0.1mg daily, felodipine 10mg daily, carvedilol 12.5mg twice daily, and isosorbide mononitrate 30mg daily. We have STOPPED your metoprolol and lisinopril. You will not continue these until you see your primary care doctor. It is important that you have close follow up and see your primary care doctor within the week, before you run out of your medications at home. 2) You can continue your prednisone tapering for your polymyalgia. Talk to your primary care doctor about this taper as well. 3) Your Hgb A1c (diabetes measurement) was elevated here. However, since your sugars tend to go low sometimes we did not make any changes to your medications. You can restart your home Januvia and follow up your diabetes with your primary doctor. 4) For your belly, please continue your home ulcer medications. This includes your omeprazole 40mg daily. Pending Studies at Discharge: No Stand-Alone Forms: My [facility] walkby, Smoking Cessation Medications and DC Order Prescriptions: Continued carvedilol 25 mg tablet 25 mg PO BID RF: 0 clonidine HCl 0.1 mg tablet 0.1 mg PO DAILY RF: 0 prednisone 10 mg tablet 5 - 20 mg PO DAILY RF: 0 atorvastatin 20 mg tablet 20 mg PO DAILY RF: 0 sucralfate 1 gram tablet 1 g PO .QIDM RF: 0 famotidine 40 mg tablet 40 mg PO DAILY RF: 0 isosorbide mononitrate 30 mg tablet extended release 24 hr 30 mg PO DAILY RF: 0 omeprazole 40 mg capsule,delayed release(/EC) 40 mg PO DAILY RF: 0 prednisone 1 mg tablet 1 mg PO TID RF: 0 felodipine 10 mg tablet extended release 24 hr 10 mg PO DAILY RF: 0 Januvia 50 mg tablet 50 mg PO DAILY RF: 0 Discontinued metoprolol succinate 200 mg tablet extended release 24 hr 200 mg PO DAILY RF: 0 lisinopril 40 mg tablet 40 mg PO DAILY RF: 0 Discharge Orders: Discharge Order (Routine); Ordered 06/25/19 Ordered By: Romina Davis Admission Data Admit Date/Time: 06/24/19 18:31 Attending Provider: Zoran Nguyen Admit Provider: Price Olmstead Primary Care Provider: ELIZABETH RAYO Other Providers: Price Olmstead ; Gordon Terry Other Interventions: Discharge Summary Assessment (RN) Last Done: 06/25/19 15:51 DC Date/Time DO NOT enter until pt leaves facility: 06/25/19 16:14 Supervising Physician Co-Signing Physician Notes I personally examined the patient and verified all thompson points of history and exam, discussed case, and agree with decision making with Dr Davis. Feeling much better overall. Not at all lightheaded not at all dizzy. No chest pain no shortness of breath. Walked around the room a little bit with absolutely no symptoms, feels good enough to go home and would very much like to go home. He believes the main problem was too much medications. We discussed ongoing titration of his blood pressure, and the fact that in the hospital setting is often a difficult place to get his numbers "perfect" but with ambulatory monitoring and close follow-up with his PCP is meds can continue to be titrated to the best control he can attain. In the mGeneratory recommended 2-3 times a day random blood pressure checks and close PCP follow-uphe noted his PCP is quite attentive and very good to work with. He notes his stomach pain is getting better and he is able to eat okay. Vitals noted, in general he is awake alert pleasant no distress. HEENT normocephalic atraumatic mucous membranes moist. Breathing unlabored no accessory muscle use. Abdomen soft nondistended nontender no masses organomegaly. Syncopeappears to have been medication induced syncope. Meds have been reduced rather significantly and he is feeling better now. Given the labile nature of his blood pressure, I do harbor concerns about whether or not he has a degree of age-related autonomic insufficiencywould ask his PCP to be vigilant for this in follow-up. Hypertensionhe had fairly erratic control even while here. During the time I was talking with him his pressures were in the 1 teens over 60s type range but then just before discharge, will without us being notified, his pressures were (and asymptomatic) to 212/88. This does back the question further of autonomic insufficiencybut given that he was asymptomatic and will have very close PCP follow-up, strategy of ambulatory monitoring in a careful but quick stepwise approach to his meds appears to be most appropriate given that right now he is running erratic but at times uncontrolled ranges but with better control he also had a syncopal event landing him in the hospital. Elevated troponinuncertain significance. Certainly does not appear at all to have been an PA. Once we finally obtain the cath report, if he does have any degree of coronary disease or distal disease then it could simply be a watershed hypoperfusion from his hypotension, but at the same time it easily could be just a poor clearance issue from his kidney impairment. Elevated creatinineuncertain acuity. His significant other notes that IV diet reports hospital hurt his kidneys and she wonders if his improvement is not that he simply on his way down from that, at the same time he could have a degree of baseline CKD. We discussed having his PCP follow-up on this, given that it is improving and there is no acuity, that either looking at his current numbers compared to his baseline range (current creatinine is 1.57 down from 1.95 yesterday) or continuing to trend would be reasonable in this respect. Stable for close outpatient follow-up. Drink personally reach out to his PCP to sign out the case given the different systems, and wanting to make sure that what was done here translates well for his follow-up. Resident Activity Tracking Resident Involvement: Resident Care Provided Care Provided: [facility] Medicine
--- NOTE | 2019-06-25 10:39 | Communication Note ---
Date of Service: June 25, 2019 Repeat EKG reveals stable findings. Inferior and lateral repolarization changes are less prominant.
--- NOTE | 2019-06-25 12:06 | Pharmacy Report ---
Pharmacy Glycemic Short Note 2 - Date of Service June 25, 2019 - Glycemic Short BSG Results (Last 24 hours): 06/24/19 06/24/19 06/25/19 13:30 20:57 06:49 Glucose 106 H 86 POC Glucose 165 H 06/25/19 07:46 Glucose POC Glucose 96 OUTPATIENT ANTIDIABETIC REGIMEN: * januvia 50 mg PO daily * A1c = 6.8% on 06/25/19 ASSESSMENT: * Rock is a 78 yr old T2DM male admitted with lightheadedness and elevated troponin * A1c of 6.8% indicates adequate out patient glycemic control with Januvia * Will hold oral agents for admission and utilize SQ basal bolus insulin regimen which is the recommended regimen for inpatient glycemic control. * Will initiate weight based Novolog insulin and titrate based on BSG trends * Holding off on basal insulin due to fasting BSG of 96 mg/dL PLAN FOR INPATIENT GLYCEMIC CONTROL: * Hold outpatient oral diabetes medications * Basal insulin * none today * Bolus insulin - tighten correction factor * NovoLog per scale ACHS or Q6hrs while NPO * Goal Range: Low 110 mg/dL - High 140 mg/dL * Correction Factor: 30 mg/dL/unit * Nutritional / Prandial insulin per carb ratio of 1 unit per 12 grams CHO consumed PLAN FOR DISCHARGE: * A1c = 6.8% * Goal A1c = < 7% * Continue current outpatient regimen of Januvia 50 mg PO daily
--- NOTE | 2019-06-25 12:22 | Communication Note ---
Date of Service: June 25, 2019 Resting echocardiogram revealed moderate concentric LVH, normal resting wall motion, normal LVEF. Await records. I called the community reinvestment act officer and requested that another request made to Bryan Blandon. I believe obtaining these records would be helpful in terms of reviewing the physician report with the cardiac catheterization, and discharge medications and comparison with prior EKG tracing.
--- NOTE | 2019-06-25 16:12 | Communication Note ---
Date of Service: June 25, 2019 I have reached out to the community health nurse supervisor on [address] [place] [address] on 3 occasions to request and update on obtaining the medical records. I attempted to call [facility] personally, but was not able to get through (no answer). I personally had pt complete consent for release of records at 9:30 am this morning. Still no records available. order control clerk blood bank reaching out to refax to [facility].
--- NOTE | 2019-06-25 18:17 | Billing Data ---
Coding Level of Care Code 67356 OBS Care - Discharge
[2019-06-26] MEDS ORDERED: PANTOprazole 40 MG TAB PO SCH (09:00)
--- NOTE | 2019-06-26 11:13 | Communication Note ---
Date of Service: June 26, 2019 I called and spoke to HIM yesterday. Paper records found in the HIM office this am, having arrived just after 3 pm yesterday. Per my request they were scanned to the pt's electronic chart to allow review. 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 Other helpful piece of historical information is that the medication list as outlined in the admission history and physical included metoprolol succinate 200 mg daily. The patient however was discharged on carvedilol 25 mg twice daily, without metoprolol. Per the patient's admission medication list, it appears he perhaps was taking both the carvedilol and the metoprolol. Metoprolol was discontinued at time of discharge yesterday. Patient to follow-up with his primary product responsibility liaison Dr. Gustavo Myrick.
[2019-06-28 12:57] LABS: Hepatitis A Antibody IgM NON-REACTIVE (NON-REACTIVE); Hepatitis B Core Antibody IgM NON-REACTIVE (NON-REACTIVE)
== END 2019-06-25 16:14 | disposition home or self-care (01) ==
LOC: 2W 13:24 → ED 13:24 → SUATTDRO 18:31 → 2W 19:02
DX: N17.9 Acute kidney failure, unspecified; R55 Syncope and collapse; M62.81 Muscle weakness (generalized); Z91.040 Latex allergy status; R06.02 Shortness of breath; I95.9 Hypotension, unspecified; Z87.891 Personal history of nicotine dependence; I10 Essential (primary) hypertension; B19.10 Unspecified viral hepatitis B without hepatic coma; R79.89 Other specified abnormal findings of blood chemistry; Z79.899 Other long term (current) drug therapy

== ENCOUNTER 2021-02-20 05:56 | Inpatient (IN) ==
[2021-02-20] MEDS ORDERED: OXYMETAZOLINE 0.05% 30 ML BTL ONE (06:05)
[2021-02-20] MEDS ORDERED: NITROGLYCERIN 2% OINTMENT 30GM TUBE ONE (06:13)
[2021-02-20] MEDS ORDERED: cloNIDine HCL 0.1 MG TAB PO ONE (06:34)
[2021-02-20] MEDS ORDERED: carvediloL 25 MG TAB PO ONE (06:34)
[2021-02-20 06:50] LABS: Basophils # (auto) 0.01 K/uL (0-0.2); Basophils % (auto) 0.1 %; Eosinophils # (auto) 0.22 K/uL (0-0.5); Eosinophils % (auto) 2.2 %; Hematocrit (blood only) 35.4 % (42-52); Hemoglobin 11.1 g/dL (14.0-18.0); Immature Granulocytes # (auto) 0.03 K/uL (0.00-0.02); Immature Granulocytes % (auto) 0.3 %; Lymphocytes # (auto) 1.11 K/uL (1.2-3.4); Lymphocytes % (auto) 11.1 %; Mean Corpuscular Hemoglobin 22.8 pg (25-34); Mean Corpuscular Hgb Conc 31.4 g/dL (32-36); Mean Corpuscular Volume 72.7 fL (80-100); Mean Platelet Volume 10.2 fL (7.4-10.4); Monocytes # (auto) 0.64 K/uL (0.11-0.59); Monocytes % (auto) 6.4 %; Neutrophils # (auto) 7.96 K/uL (1.4-6.5); Neutrophils % (auto) 79.9 %; Platelet Count 195 K/uL (130-400); RDW Coefficient of Variation 15.9 % (11.5-14.5); RDW Standard Deviation 42.5 fL (36.4-46.3); Red Blood Count 4.87 M/uL (4.7-6.1); White Blood Count 9.97 K/uL (4.8-10.8)
--- NOTE | 2021-02-20 06:54 | Emergency Department Note ---
Impression & Plan Acute anterior epistaxis, Hypertensive urgency ED Provider Note NAME: EDWIN SUGGS AGE: 80 SEX: M : 1940 ARRIVES VIA: Ambulance INFORMANT: Patient, the patient's significant other ED PROVIDER(S): Ephraim Kruse DO CHIEF COMPLAINT: Epistaxis HPI: The patient is an 80-year-old male who presented to the emergency department for an evaluation of epistaxis. The patient was started on oral anticoagulation recently for diagnosis of pulmonary embolism. He started having epistaxis symptoms yesterday. The symptoms only lasted approximately 5 minutes and resolved spontaneously. The patient has never had a similar symptom in the past. He started having epistaxis again this morning which became brisk. He arrived at the emergency department via ambulance. The patient states he has no difficulty breathing at this time. He notices no abdominal pain or chest pain. He does have lower extremity swelling which is not new for him. The patient denies having any fevers. He has had no recent trauma to his nose. He states he is been compliant with all of his outpatient medication but did not take his morning medications prior to coming to the emergency department. Symptoms have significantly improved since arrival. ROS: See above HPI for pertinent positives & negatives. A total of 10 systems reviewed and were otherwise negative. PAST MEDICAL HISTORY: See Below PAST SURGICAL HISTORY: See Below FAMILY HISTORY: See Below SOCIAL HISTORY: See Below HOME MEDICATIONS: See Below ALLERGIES: See Below VITALS: See Below PHYSICAL EXAMINATION: GENERAL: The patient is awake and alert. The patient is somewhat anxious appearing. EYES: The conjunctivae are clear. The pupils are round and reactive. EARS, NOSE, MOUTH AND THROAT: The nose is without any evidence of any deformity. Clotted blood was noted in the right nares. There was no active bleeding at this time. There was no bleeding in the left nares. NECK: The neck is nontender and supple. RESPIRATORY: Normal respiratory effort is noted there is no evidence of wheezing rhonchi or rales CARDIOVASCULAR: Regular rate and rhythm noted there no murmurs rubs or gallops normal S1 normal S2. GASTROINTESTINAL: The abdomen is soft. Abdomen is nontender. MUSCULOSKELETAL/EXTREMITIES: There is no evidence of gross deformity full range of motion is noted in the hips and shoulders. SKIN: Pedal edema was noted bilaterally. NEUROLOGIC: Patient is awake alert and oriented x3. MEDICAL DECISION MAKING: The patient is an 80-year-old male who presented to the emergency department for an evaluation of epistaxis. The patient initially was felt to have anterior epistaxis of the right nares. This was treated conservatively initially but then he required nasal packing. I discussed patient's laboratory and radiographic studies with him. He did receive nitroglycerin paste prior to arrival by prehospital orders. The patient was found to have very significantly elevated blood pressure. He was given his outpatient antihypertensive medication initially but was also ordered other medications by myself. I discussed the patient's laboratory and radiographic studies with him. He still continued to have elevated blood pressure so the patient was evaluated by the [facility] for further evaluation. Triage Nursing notes reviewed. Prior medical records reviewed Vital Signs: reviewed and remarkable for elevated blood pressure. Differential diagnosis: Anterior epistaxis, coagulopathy, traumatic injury, fracture, septal hematoma, posterior epistaxis, infections, as well as other pathologies. ER treatment provided: See below Diagnostics interpreted by me: ECG: EKG was obtained in the emergency department. My interpretation is normal sinus rhythm at 67 bpm. There was no ectopy. Inferior ST abnormalities with T wave inversions were noted. This was compared to a tracing from June 252018. No significant changes were noted. Cardiac Monitoring: An order was placed for continuous cardiac monitoring. The monitor shows a rate of 75 bpm with sinus rhythm. Laboratory studies: As stated above and show below. Imaging studies: See below Consultation(s): 2476: I discussed this case with Dr. Dickinson who is on-call for the [facility]. He will evaluate the patient in the emergency department for further management and disposition. ED COURSE: Procedures: Anterior Nasal Packing Indication: Anterior epistaxis Verbal consent obtained. Risks and benefits were explained with the usual customary discussion. A time out was taken. Clots were removed with suction. The right naris was prepped with Afrin and lidocaine. A 5.5-cm nasal balloon was placed in a standard fashion. The patient tolerated this well. Hemostasis was achieved. No complications. Past Med/Surg History Medical History (Updated 02/20/21 @ 14:00 by Ephraim Kruse DO) Acute kidney injury Elevated troponin Hepatitis B History of pulmonary embolism HTN (hypertension) Hypertensive urgency Surgical History Hx of cardiac cath Family History Other Family history non-contributory Social History Smoking Status: Unknown if ever smoked Second Hand Exposure: No; Hx Alcohol Use: No Hx Substance Use: No Preferred Language: Mosotho Communication Ability: Effective Aerographer Required: No Beliefs That Will Affect Care: None Current Living Situation: Family Feels Safe at Home: No Is there a partner from a previous relationship who is making you feel unsafe now?: No Assistive Devices: Glasses Allergies Allergies Allergy/AdvReac Type Severity Reaction Status Date / Time latex Allergy Intermediate Rash Unverified 02/20/21 07:54 Home Meds Home Medications Medication Instructions Recorded Confirmed atorvastatin 20 mg tablet 20 mg PO DAILY 06/24/19 02/20/21 carvedilol 25 mg tablet 25 mg PO BID 06/24/19 02/20/21 isosorbide mononitrate 30 mg 30 mg PO DAILY 06/24/19 02/20/21 tablet,extended release 24 hr prednisone 1 mg tablet 1 mg PO TID 06/24/19 02/20/21 sitagliptin 50 mg tablet (Januvia) 50 mg PO DAILY 06/24/19 02/20/21 apixaban 5 mg tablet (Eliquis) 5 mg PO BID 02/20/21 02/20/21 doxycycline hyclate 100 mg tablet 100 mg PO DAILY 02/20/21 02/20/21 mecobalamin (vitamin B12) 1,000 1,000 mcg PO DAILY 02/20/21 02/20/21 mcg chewable tablet (B12 Active) pantoprazole 40 mg tablet,delayed 40 mg PO DAILY 02/20/21 02/20/21 release potassium chloride 20 mEq 20 meq PO DAILY 02/20/21 02/20/21 tablet,extended release(part/cryst) Results & Data (ED) Vital Signs Vital Signs - 24 hr 02/20/21 05:52 02/20/21 06:43 02/20/21 07:09 Temperature 37.1 C Temperature Source Oral Pulse Rate 67 64 61 Pulse Rate [Apical] Pulse Rate from SpO2 Sensor 62 Respiratory Rate 16 16 16 Respiratory Effort / Characteristics Respiratory Depth Respiratory Pattern Blood Pressure 219/75 H 226/106 H Blood Pressure [Right Arm] Blood Pressure Mean 123 146 Blood Pressure Mean [Right Arm] Pulse Oximetry 94 94 96 Oxygen Delivery Method Room Air Room Air Sepsis Recent Fever Within 48 Hours No Sepsis New/Unexplained Change in Mental Status No Sepsis Action Taken by Nursing No Action Required 02/20/21 07:11 02/20/21 08:01 02/20/21 08:29 Temperature Temperature Source Pulse Rate 66 67 Pulse Rate [Apical] 63 Pulse Rate from SpO2 Sensor 67 67 Respiratory Rate 16 13 Respiratory Effort / Characteristics Respiratory Depth Respiratory Pattern Blood Pressure 248/111 H 254/107 H Blood Pressure [Right Arm] 226/106 H Blood Pressure Mean 156 156 Blood Pressure Mean [Right Arm] 146 Pulse Oximetry 97 97 Oxygen Delivery Method Sepsis Recent Fever Within 48 Hours Sepsis New/Unexplained Change in Mental Status Sepsis Action Taken by Nursing 02/20/21 08:30 02/20/21 09:24 02/20/21 09:30 Temperature Temperature Source Pulse Rate 65 69 70 Pulse Rate [Apical] 68 Pulse Rate from SpO2 Sensor 67 69 70 Respiratory Rate 19 19 16 Respiratory Effort / Characteristics Non-Labored Respiratory Depth Normal Respiratory Pattern Regular Blood Pressure 254/105 H 225/101 H 222/103 H Blood Pressure [Right Arm] 254/105 H Blood Pressure Mean 154 142 142 Blood Pressure Mean [Right Arm] 154 Pulse Oximetry 97 98 98 Oxygen Delivery Method Room Air Sepsis Recent Fever Within 48 Hours Sepsis New/Unexplained Change in Mental Status Sepsis Action Taken by Nursing 02/20/21 10:00 Temperature Temperature Source Pulse Rate 70 Pulse Rate [Apical] Pulse Rate from SpO2 Sensor Respiratory Rate 17 Respiratory Effort / Characteristics Respiratory Depth Respiratory Pattern Blood Pressure 212/91 H Blood Pressure [Right Arm] Blood Pressure Mean 131 Blood Pressure Mean [Right Arm] Pulse Oximetry Oxygen Delivery Method Sepsis Recent Fever Within 48 Hours Sepsis New/Unexplained Change in Mental Status Sepsis Action Taken by Intermediate Medications Current Medication List: was personally reviewed by me Laboratory Data Attestation: I reviewed the patient's lab results. Result diagrams: 02/20/21 06:00 02/20/21 06:00 Lab Results 02/20/21 02/20/21 02/20/21 Range/Units 06:00 06:00 06:00 WBC 9.97 (4.8-10.8) K/uL RBC 4.87 (4.7-6.1) M/uL Hgb 11.1 L (14.0-18.0) g/dL Hct 35.4 L (42-52) % MCV 72.7 L (80-100) fL MCH 22.8 L (25-34) pg MCHC 31.4 L (32-36) g/dL RDW Std Deviation 42.5 (36.4-46.3) fL RDW Coeff of Derek 15.9 H (11.5-14.5) % Plt Count 195 (130-400) K/uL MPV 10.2 (7.4-10.4) fL Immature Gran % (Auto) 0.3 % Neut % (Auto) 79.9 % Lymph % (Auto) 11.1 % Todd % (Auto) 6.4 % Eos % (Auto) 2.2 % Baso % (Auto) 0.1 % Neut # (Auto) 7.96 H (1.4-6.5) K/uL Lymph # (Auto) 1.11 L (1.2-3.4) K/uL Todd # (Auto) 0.64 H (0.11-0.59) K/uL Eos # (Auto) 0.22 (0-0.5) K/uL Baso # (Auto) 0.01 (0-0.2) K/uL Immature Gran # (Auto) 0.03 H (0.00-0.02) K/uL PT 10.9 (9.0-12.0) Seconds INR 1.1 (0.9-1.1) APTT 31.0 (21.0-31.0) Seconds PTT Ratio 1.2 Sodium 144 (136-145) mmol/L Potassium 4.6 (3.5-5.1) mmol/L Chloride 113 H (98-107) mmol/L Carbon Dioxide 30 (21-32) mmol/L Anion Gap 1.0 L (3-11) BUN 30 H (7-18) mg/dl Creatinine 1.70 H (0.6-1.4) mg/dl Est Cr Clr Drug Dosing 38.2 ml/min Est GFR ( Amer) 43.2 ml/min Est GFR (Non-Af Amer) 37.3 ml/min BUN/Creatinine Ratio 17.9 (10-20) Glucose 113 H (70-99) mg/dl Calcium 8.6 (8.5-10.1) mg/dl Total Bilirubin 0.4 (0.2-1) mg/dl AST 9 L (15-37) U/L ALT 20 (12-78) U/L Alkaline Phosphatase 65 (45-117) U/L Troponin I 0.115 H* (0-0.045) ng/ml Total Protein 6.0 L (6.4-8.2) gm/dl Albumin 3.0 L (3.4-5.0) gm/dl Globulin 3.0 (2.5-4.0) gm/dl Albumin/Globulin Ratio 1.0 (0.9-2) Lipase 312 (73-393) U/L COVID-19 Eval Order SARS-CoV-2 (PCR) (Negative) 02/20/21 02/20/21 Range/Units 09:05 09:05 WBC (4.8-10.8) K/uL RBC (4.7-6.1) M/uL Hgb (14.0-18.0) g/dL Hct (42-52) % MCV (80-100) fL MCH (25-34) pg MCHC (32-36) g/dL RDW Std Deviation (36.4-46.3) fL RDW Coeff of Derek (11.5-14.5) % Plt Count (130-400) K/uL MPV (7.4-10.4) fL Immature Gran % (Auto) % Neut % (Auto) % Lymph % (Auto) % Todd % (Auto) % Eos % (Auto) % Baso % (Auto) % Neut # (Auto) (1.4-6.5) K/uL Lymph # (Auto) (1.2-3.4) K/uL Todd # (Auto) (0.11-0.59) K/uL Eos # (Auto) (0-0.5) K/uL Baso # (Auto) (0-0.2) K/uL Immature Gran # (Auto) (0.00-0.02) K/uL PT (9.0-12.0) Seconds INR (0.9-1.1) APTT (21.0-31.0) Seconds PTT Ratio Sodium (136-145) mmol/L Potassium (3.5-5.1) mmol/L Chloride (98-107) mmol/L Carbon Dioxide (21-32) mmol/L Anion Gap (3-11) BUN (7-18) mg/dl Creatinine (0.6-1.4) mg/dl Est Cr Clr Drug Dosing ml/min Est GFR ( Amer) ml/min Est GFR (Non-Af Amer) ml/min BUN/Creatinine Ratio (10-20) Glucose (70-99) mg/dl Calcium (8.5-10.1) mg/dl Total Bilirubin (0.2-1) mg/dl AST (15-37) U/L ALT (12-78) U/L Alkaline Phosphatase (45-117) U/L Troponin I (0-0.045) ng/ml Total Protein (6.4-8.2) gm/dl Albumin (3.4-5.0) gm/dl Globulin (2.5-4.0) gm/dl Albumin/Globulin Ratio (0.9-2) Lipase (73-393) U/L COVID-19 Eval Order Covid19 at [facility] SARS-CoV-2 (PCR) NEGATIVE (Negative) Administered Medications Nicardipine HCl 25 mg/ Sodium (Chloride) 250 mls @ 50 mls/hr IV .Q5H NAJMA; Protocol Stop: 02/21/21 10:29 Last Titration: 02/20/21 16:49 Dose: 2.5 mg/hr, 25 mls/hr Documented by: [id number] Titration: 02/20/21 14:21 Dose: 5 mg/hr, 50 mls/hr Documented by: [id number] Titration: 02/20/21 13:48 Dose: 0 mg/hr, 0 mls/hr Documented by: [id number] Admin: 02/20/21 10:37 Dose: 5 mg/hr, 50 mls/hr Documented by: [id number] Cosigned by: [id number] Insulin Aspart (Insulin Aspart 100 Units/Ml 3 Ml Pen) 0 units SC Q6 NAJMA Stop: 03/22/21 12:59 Last Admin: 02/20/21 13:33 Dose: Not Given Documented by: [id number] Cosigned by: [id number] Morphine Sulfate (Morphine Sulfate 2 Mg/Ml Carp) 2 mg IV Q4H PRN PRN Reason: Pain Stop: 03/06/21 11:45 Last Admin: 02/20/21 15:04 Dose: 2 mg Documented by: [id number] Ondansetron HCl (Ondansetron Inj 2 Mg/Ml 2 Ml Vial) 4 mg IV Q6H PRN PRN Reason: Nausea And Vomiting Stop: 03/22/21 16:52 Last Admin: 02/20/21 17:05 Dose: 4 mg Documented by: [id number] Prednisone (Prednisone 1 Mg Tab) 1 mg PO TID NAJMA Stop: 03/22/21 13:59 Last Admin: 02/20/21 13:57 Dose: 1 mg Documented by: [id number] Discontinued Medications Acetaminophen (Acetaminophen 500 Mg Tab) 1,000 mg PO NOW STA Stop: 02/20/21 08:51 Last Admin: 02/20/21 08:58 Dose: 1,000 mg Documented by: [id number] Amlodipine Besylate (Amlodipine Besylate 5 Mg Tab) 5 mg PO NOW ONE Stop: 02/20/21 13:17 Last Admin: 02/20/21 13:57 Dose: 5 mg Documented by: [id number] Carvedilol (Carvedilol 25 Mg Tab) 25 mg PO NOW ONE Stop: 02/20/21 06:35 Last Admin: 02/20/21 06:50 Dose: 25 mg Documented by: [id number] Cephalexin HCl (Cephalexin 250 Mg Cap) 500 mg PO NOW ONE Stop: 02/20/21 07:30 Last Admin: 02/20/21 07:52 Dose: 500 mg Documented by: [id number] Clonidine HCl (Clonidine Hcl 0.1 Mg Tab) 0.1 mg PO NOW ONE Stop: 02/20/21 06:35 Last Admin: 02/20/21 06:47 Dose: 0.1 mg Documented by: [id number] Hydralazine HCl (Hydralazine Hcl 20 Mg/Ml Vial) 5 mg IV NOW ONE Stop: 02/20/21 08:44 Last Admin: 02/20/21 08:58 Dose: 5 mg Documented by: [id number] Hydralazine HCl (Hydralazine Hcl 20 Mg/Ml Vial) Confirm Administered Dose 20 mg .ROUTE .STK-MED ONE Stop: 02/20/21 13:30 Last Increment: 02/20/21 13:31 Dose: 5 mg Documented by: [id number] Isosorbide Mononitrate (Isosorbide Todd Extended Rel 30 Mg Tabcr) 30 mg PO NOW ONE Stop: 02/20/21 07:30 Last Admin: 02/20/21 07:52 Dose: 30 mg Documented by: [id number] Morphine Sulfate (Morphine Sulfate 2 Mg/Ml Carp) 2 mg IV NOW STA Stop: 02/20/21 10:27 Last Admin: 02/20/21 10:42 Dose: 2 mg Documented by: [id number] Nitroglycerin (Nitroglycerin 2% Ointment 30gm Tube) Confirm Administered Dose 18 inch .ROUTE .STK-MED ONE Stop: 02/20/21 06:14 Last Admin: 02/20/21 06:20 Dose: 1 inch Documented by: [id number] Oxymetazoline HCl (Oxymetazoline 0.05% 30 Ml Btl) 1 sprays NA NOW ONE Stop: 02/20/21 06:06 Last Admin: 02/20/21 06:20 Dose: Not Given Documented by: [id number] Discharge Plan Visit Data Chief Complaint: Nose Bleed (Minor) Stated Complaint: NOSEBLEED ED Provider: Ephraim Kruse Discharge Problem: Acute anterior epistaxis, Hypertensive urgency Patient Disposition: Admitted As Inpatient Condition: Good Discharge Instructions Interventions: ED Discharge Assessment Last Done: 02/20/21 11:09
[2021-02-20 06:58] LABS: BUN Creatinine Ratio 17.9 (10-20); Calcium 8.6 mg/dl (8.5-10.1); Creatinine Clr Calc Pharmacy 38.2 ml/min; Est GFR (African American) 43.2 ml/min; Est GFR (Non-African American) 37.3 ml/min; Potassium 4.6 mmol/L (3.5-5.1)
[2021-02-20 07:01] LABS: INR 1.1 (0.9-1.1); Partial Thromboplastin Ratio 1.2; Prothrombin Time 10.9 Seconds (9.0-12.0)
[2021-02-20 07:05] LABS: Bilirubin,Total 0.4 mg/dl (0.2-1); Troponin I 0.115 ng/ml (0-0.045)
[2021-02-20] MEDS ORDERED: cephALEXin 250 MG CAP PO ONE (07:29)
[2021-02-20] MEDS ORDERED: ISOSORBIDE MONO EXTENDED REL 30 MG TABCR PO ONE (07:29)
[2021-02-20] MEDS ORDERED: hydrALAZINE HCL 20 MG/ML VIAL IV ONE (08:43)
[2021-02-20] MEDS ORDERED: ACETAMINOPHEN 500 MG TAB PO STA (08:50)
--- NOTE | 2021-02-20 10:00 | Electrocardiogram Report ---
Test Reason : Blood Pressure : / mmHG Vent. Rate : 067 BPM Atrial Rate : 067 BPM P-R Int : 144 ms QRS Dur : 098 ms QT Int : 410 ms P-R-T Axes : 058 -14 -17 degrees QTc Int : 433 ms Normal sinus rhythm Left ventricular hypertrophy T wave inversion consider inferior ischemia When compared with ECG of 25-JUN-2019 10:32, The lateral T wave inversions have improved Confirmed by Alvaro Snyder ([id number]) on 02/20/2021 9:59:38 AM Referred By: REFERRED SELF Confirmed By:Alvaro Snyder
[2021-02-20] MEDS ORDERED: STAT IV Infusion **Titration per Protocol STA (10:04)
[2021-02-20] MEDS ORDERED: MoRPHine SULFATE 2 MG/ML CARP IV STA (10:26)
[2021-02-20] MEDS: niCARdipine 25 MG in SODIUM CHLORIDE 0.9% 240 ML IV SCH ×5 (10:37→22:44)
--- NOTE | 2021-02-20 10:44 | History & Physical Report ---
Date of Service February 20, 2021 Assessment & Plan (1) Elevated troponin: Plan: 80 y/o M Hx HTN, HLD, DM II, pulmonary emboli, CKD III, colon and prostate CA in remission. The pt was diagnosed with BL pulmonary emboli and pneumonia one week prior. He was discharged for Bogata on Eliquis and doxycycline. He developed epistaxis today and presented to the ER therefore. On arrival to the ER his SBP was over 250. He received Hydralazine and NTG but did not have a measurable response. Labs are notable for microcytic anemia which appears to be chronic and a + trop which also appears on prior labs. He denies CP, SOB or fevers at the time of admission. His R nare was packed by the ER attending. As an unrelated matter, the pt reports a recent change in bowel habits and was scheduled for an abdominal MRI in the coming weeks. 1) Epistaxis - nare is packed and we will hold Eliquis until resolved. Lowering his BP may additionally help. Hb will be trended. Elevate head of bed. 2) HTN urgency - the pt is placed on a Cardene drip with a goal SBP of 160-180. He will likely need a new med regimen upon DC. 3) BL pulmonary emboli - will need to resume anticoagulation. Considering unprovoked PEs, history of colon CA and recent change in bowel habits, we will order an abdominal MRI. We have also ordered LE Dopplers to assess clot burden. 4) PNM - will complete his course of PO doxy 5) Elevated trop - likely due to PEs. Echo is pending. Will trend for now. There are inferior inversions on an EKG which were present previously. Will cont a statin, beta joellen, Imdur. 6) Microcytic anemia - unchanged form 2018 - pt does not know etiology - will trend Hb for now. 7) DM II - sliding scale 8) HTN, HLD - now on a Cardene drip - will cont carvedilol and Imdur with parameters, cont atorvastatin 9) CKD III - function appears to be at baseline Full code - Eliquis held Total time for this admit including review of labs, meds, imaging, records - discussion with pt and ER attending - 1 hour includes critical care time. (2) HTN (hypertension): (3) Pulmonary emboli: (4) CKD (chronic kidney disease), stage III: (5) DM II (diabetes mellitus, type II), controlled: (6) Epistaxis: History of Present Illness Chief Complaint: Epistaxis Primary Care Provider: Toni Madera, DO 80 y/o M Hx HTN, HLD, DM II, pulmonary emboli, CKD III, colon and prostate CA in remission. The pt was diagnosed with BL pulmonary emboli and pneumonia one week prior. He was discharged for Bogata on Eliquis and doxycycline. He developed epistaxis today and presented to the ER therefore. On arrival to the ER his SBP was over 250. He received Hydralazine and NTG but did not have a measurable response. Labs are notable for microcytic anemia which appears to be chronic and a + trop which also appears on prior labs. He denies CP, SOB or fevers at the time of admission. His R nare was packed by the ER attending. As an unrelated matter, the pt reports a recent change in bowel habits and was scheduled for an abdominal MRI in the coming weeks. PMH: 1) HTN 2) HLD 3) DM II 4) BL pulmonary emboli 5) Colon CA - treated with surgery only 2005 6) Prostate CA - 2010 7) CKD III 8) Pulmonary emboli 9) Chronic lower extremity edema Surgical: 1) Segmental colectomy 2005 2) Prostatectomy 2010 Social: Does not drink or smoke. 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 Family: Father - HTN Mother - melanoma Allergies Allergy/AdvReac Type Severity Reaction Status Date / Time latex Allergy Intermediate Rash Unverified 02/20/21 07:54 Home Medications Medication Instructions Recorded Confirmed Type atorvastatin 20 mg tablet 20 mg PO DAILY 06/24/19 02/20/21 History carvedilol 25 mg tablet 25 mg PO BID 06/24/19 02/20/21 History isosorbide mononitrate 30 mg 30 mg PO DAILY 06/24/19 02/20/21 History tablet,extended release 24 hr prednisone 1 mg tablet 1 mg PO TID 06/24/19 02/20/21 History sitagliptin 50 mg tablet (Januvia) 50 mg PO DAILY 06/24/19 02/20/21 History apixaban 5 mg tablet (Eliquis) 5 mg PO BID 02/20/21 02/20/21 History doxycycline hyclate 100 mg tablet 100 mg PO DAILY 02/20/21 02/20/21 History mecobalamin (vitamin B12) 1,000 1,000 mcg PO DAILY 02/20/21 02/20/21 History mcg chewable tablet (B12 Active) pantoprazole 40 mg tablet,delayed 40 mg PO DAILY 02/20/21 02/20/21 History release potassium chloride 20 mEq 20 meq PO DAILY 02/20/21 02/20/21 History tablet,extended release(part/cryst) Past Med/Surg History Medical History Acute kidney injury Elevated troponin Hepatitis B History of pulmonary embolism HTN (hypertension) Surgical History Hx of cardiac cath Family History Other Family history non-contributory Social History Smoking Status: Never smoker Hx Alcohol Use: No Hx Substance Use: No Preferred Language: Malagasy Communication Ability: Effective Personal Computer Specialist Required: No Beliefs That Will Affect Care: None Current Living Situation: Alone Feels Safe at Home: Yes Assistive Devices: None Review of Systems Review of Systems: Gen: Denies fevers, night sweats, rigors, fatigue, malaise, weight loss/gain ENT: Nose bleed which would npt stop as per HPI Eyes: Denies acute visual changes CV: Denies CP, palpitations Pulmonary: Denies SOB, cough, wheezing GI: Denies N/V, diarrhea, constipation Neuro: Denies acute or unilateral weakness, acute gait impairment, headache or acute visual changes Musculoskeletal: Denies joint pain, inflammation Endocrine: Denies polydipsia, polyuria Skin: Denies acute rashes or ulcers Physical Exam Physical Exam: General: Very pleasant, elderly M, AAO x 3, no distress ENT: No erythema or exudates, no thrush - there is packing in the L nare and some blood oozing Eyes: LORENA, EOMI Head and neck: Normocephalic, atraumatic, No JVD, neck is supple. Chest/heart: Nontender, S1,2, RRR, no murmurs, no gallops Lungs: CTAB, no wheezing or crackles Abdomen: Nontender, nondistended, BS+ Neuro: AAO x 3, speech is clear, no unilateral weakness or loss of sensation, coordination intact Musculoskeletal: No joint inflammation, muscle tenderness, FROM Skin: No acute rashes or ulcers Extremities: No clubbing, cyanosis. + edema Results & Data Results & Data ([facility]) Vital Signs (Past 12 Hours) Vital Signs Temp Pulse Pulse Resp BP BP Pulse Ox 02/20/21 08:30 68 18 254/105 H 98 02/20/21 07:11 63 226/106 H 02/20/21 06:43 64 16 94 02/20/21 05:52 98.8 F 67 16 219/75 H 94 Code Status & VTE Plan VTE Prophylaxis Plan VTE Prophylaxis will be ordered: Yes PG Care Time/CCT Total # of Minutes Spent Total Time Spent with Patient: Total time spent is greater than 50% in coordination of care (as documented) at patient's floor/unit and/or counseling patient: Coding Level of Care Code 06334 Initial Inpt Care Lvl 3 Diagnoses Elevated troponin R79.89 HTN (hypertension) I10 Pulmonary emboli I26.99 CKD (chronic kidney disease), stage III N18.30 DM II (diabetes mellitus, type II), controlled E11.9 Epistaxis R04.0
[2021-02-20] MEDS ORDERED: ICU PROTOCOL FOR HYPERGLYCEMIA PRN (11:46)
[2021-02-20] MEDS ORDERED: MoRPHine SULFATE 2 MG/ML CARP IV PRN (11:46)
[2021-02-20] MEDS ORDERED: GLUCOSE 40% GEL 15 GM TUBE PO PRN (12:56)
[2021-02-20] MEDS ORDERED: GLUCOSE 10 TABS/TUBE PO PRN (12:56)
[2021-02-20] MEDS ORDERED: CARBOHYDRATES FOR HYPOGLYCEMIA PO PRN (12:56)
[2021-02-20] MEDS ORDERED: DEXTROSE 50% 50 ML SYRINGE IV PRN (12:56)
[2021-02-20] MEDS ORDERED: GLUCAGON FOR INJ 1 MG VIAL SQ PRN (12:56)
[2021-02-20] MEDS ORDERED: amLODIPine BESYLATE 5 MG TAB PO ONE (13:16)
--- NOTE | 2021-02-20 13:17 | Critical Care Consultation ---
Date of Consultation February 20, 2021 Assessment & Plan (1) Hypertensive urgency: 80-year-old male with a history of hypertension, diabetes mellitus type 2 and recently diagnosed pulmonary emboli presenting to the hospital due to hypertension and epistaxis. We will aim for systolic blood pressures of 160-180 over the next 4 hours. Currently off nicardipine drip. We will give a one-time dose of 5 mg IV hydralazine and dose of p.o. amlodipine, 5 mg. This will be in addition to his carvedilol and Imdur. Hold anticoagulant today and restart tomorrow. Lower extremity Dopplers being completed to evaluate for DVT. Troponin is mildly elevated likely due to hypertension. Echo reviewed with evidence of severe diastolic dysfunction. Can consider diuretic therapy as needed. Lower extremities are mildly edematous. No RV dysfunction seen. LV function appears normal. Okay to start heart healthy diet. Continue ICU monitoring. Thank you for the consultation. We will continue to follow along with you while he is in the ICU. Likely transfer out tomorrow. (2) Epistaxis: (3) Pulmonary emboli: (4) Elevated troponin: History of Present Illness Reason for Consultation: Hypertensive urgency Attending Physician: Yousif Dickinson MD History of Present Illness 80-year-old male with a past medical history of diastolic heart failure (grade 1 diastolic dysfunction), mitral valve prolapse, CKD stage III and hypertension who presented to the hospital today due to epistaxis and hypertension. Roughly 1 week ago he was seen in [facility] and was diagnosed with pulmonary emboli. He developed epistaxis today and was found to have elevated systolic blood pressures in the 200s. He received nitroglycerin and hydralazine with mild improvement in blood pressure. ICU was consulted for management of nicardipine infusion. Currently denies chest pain or shortness of breath. Notably, he has a history of colon cancer and an MRI of his abdomen has been ordered by the hospitalist service. His hemoglobin is stable and is currently 11.1. Platelet count is within normal limits. INR is within normal limits. His home blood pressure medications include carvedilol 25 mg twice daily and isosorbide mononitrate 30 mg daily. Allergies Allergy/AdvReac Type Severity Reaction Status Date / Time latex Allergy Intermediate Rash Unverified 02/20/21 07:54 Home Medications Medication Instructions Recorded Confirmed Type atorvastatin 20 mg tablet 20 mg PO DAILY 11/25/19 07/24/21 History carvedilol 25 mg tablet 25 mg PO BID 06/24/19 02/20/21 History isosorbide mononitrate 30 mg 30 mg PO DAILY 06/24/19 02/20/21 History tablet,extended release 24 hr prednisone 1 mg tablet 1 mg PO TID 06/24/19 02/20/21 History sitagliptin 50 mg tablet (Januvia) 50 mg PO DAILY 06/24/19 02/20/21 History apixaban 5 mg tablet (Eliquis) 5 mg PO BID 02/20/21 02/20/21 History doxycycline hyclate 100 mg tablet 100 mg PO DAILY 02/20/21 02/20/21 History mecobalamin (vitamin B12) 1,000 1,000 mcg PO DAILY 02/20/21 02/20/21 History mcg chewable tablet (B12 Active) pantoprazole 40 mg tablet,delayed 40 mg PO DAILY 02/20/21 02/20/21 History release potassium chloride 20 mEq 20 meq PO DAILY 02/20/21 02/20/21 History tablet,extended release(part/cryst) Patient History Medical History (Updated 02/20/21 @ 13:48 by Armani Simpson MD) Acute kidney injury Elevated troponin Hepatitis B History of pulmonary embolism HTN (hypertension) Hypertensive urgency Surgical History Hx of cardiac cath Family History Other Family history non-contributory Social History Smoking Status: Unknown if ever smoked Second Hand Exposure: No; Hx Alcohol Use: No Hx Substance Use: No Preferred Language: Maori Communication Ability: Effective Dependency Case Manager Required: No Beliefs That Will Affect Care: None Current Living Situation: Family Feels Safe at Home: No Is there a partner from a previous relationship who is making you feel unsafe now?: No Assistive Devices: Glasses Review of Systems Review of Systems: All systems reviewed & are unremarkable except as noted in HPI & below Physical Exam Physical Exam: Constitutional: Patient appears to be of their stated age. Patient is in no apparent distress. Patient is well-developed. Eyes: Pupils are equal round and reactive to light. Conjunctivae are normal. Anicteric sclera. Ears nose, mouth and throat: Mallampati class 2. Right nasal packing in place. Neck: Trachea is midline. Visual inspection is normal. Respiratory: Clear to auscultation bilaterally. No use of accessory muscles. No significant clubbing noted. Cardiovascular: Regular rate and rhythm. No murmurs. 1+ pitting edema in the lower extremities bilaterally. Gastrointestinal: Normal bowel sounds, soft, nontender and nondistended. No hepatosplenomegaly noted. Musculoskeletal: No cyanosis. Patient is able to move all extremities. Strength is 5 out of 5 in the upper and lower extremities. Skin: No rashes, warm dry and intact. Neurologic: No obvious focal neurological deficits seen. Psychiatric: Alert and oriented x3 with a euthymic affect. Results & Data Results & Data ([facility]) Vital Signs (Past 12 Hours) Vital Signs Temp Pulse Pulse Resp BP BP Pulse Ox 02/20/21 11:27 75 16 165/72 H 95 02/20/21 11:00 68 168/80 H 02/20/21 10:45 67 203/91 H 02/20/21 10:30 63 67 20 214/95 H 214/95 H 99 02/20/21 10:00 70 17 212/91 H 02/20/21 09:30 70 16 222/103 H 98 02/20/21 09:24 69 19 225/101 H 98 02/20/21 08:30 65 68 19 254/105 H 254/105 H 97 02/20/21 08:29 67 13 254/107 H 97 02/20/21 08:01 66 16 248/111 H 97 02/20/21 07:11 63 226/106 H 02/20/21 07:09 61 16 226/106 H 96 02/20/21 06:43 64 16 94 02/20/21 05:52 98.8 F 67 16 219/75 H 94 vital signs, labs and imaging personally reviewed Coding Level of Care Code 13581 Inpt Consult Level 4 Diagnoses Epistaxis R04.0 Pulmonary emboli I26.99 Hypertensive urgency I16.0 Elevated troponin R79.89
[2021-02-20] MEDS ORDERED: hydrALAZINE HCL 20 MG/ML VIAL ONE (13:29)
[2021-02-20] MEDS: INSULIN ASPART 100 UNITS/ML 3 ML PEN SC SCH ×3 (13:33→20:57)
[2021-02-20] MEDS: predniSONE 1 MG TAB PO SCH ×2 (13:57→20:56)
--- NOTE | 2021-02-20 14:09 | Ultrasound Report ---
BILATERAL LOWER EXTREMITY VENOUS DOPPLER CLINICAL HISTORY: Lower extremity swelling. COMPARISON STUDY: Left lower extremity venous Doppler ultrasound June 24, 2019. TECHNIQUE: Sonography of the deep venous system of the bilateral lower extremities was performed. Co mpression and augmentation were evaluated. FINDINGS: There is no deep venous thrombus within the left lower extremity. There is age indeterminat e deep venous thrombus within the right popliteal vein. This thrombus is nonocclusive. No additional sites of deep venous thrombus are identified. IMPRESSION: Age indeterminate nonocclusive deep venous thrombus within the right popliteal vein. ACT 112: Negative or not required by law. Electronically signed by: Garrick Miles M.D. 02/20/2021 2:08 PM
--- NOTE | 2021-02-20 16:46 | Magnetic Resonance Report ---
MR abdomen wo con CLINICAL HISTORY: History of colon cancer. Change in bowel habits.. COMPARISON STUDY: CT of the abdomen June 25, 2019. TECHNIQUE: Utilizing a 1.5 Shanita magnet and dedicated coil, multiplanar, multiecho imaging of the abd omen was performed without intravenous contrast. FINDINGS: This exam is significantly compromised by respiratory motion and lack of postcontrast imagi ng. No intra or extrahepatic biliary ductal dilatation is present. Liver morphology is normal. Unenha nced images of the spleen, adrenal glands and pancreas are grossly unremarkable with the exception of several subcentimeter T2 hyperintense lesions within the pancreas suggestive of sidebranch IPMNs. No abdominal lymphadenopathy is present. The caliber of visualized small and large bowel are normal. No marrow replacement is identified within visualized skeletal structures. Numerous T2 hyperintense ketan ateral renal lesions measure up to 5.8 cm. These are suboptimally assessed on this unenhanced exam bu t likely reflect cysts. T1 hyperintense left renal lesions favor proteinaceous cyst. There is marked bilateral renal cortical thinning. There is no hydronephrosis. Cardiomegaly is noted. IMPRESSION: 1. Technically compromised exam given motion artifact and lack of postcontrast imaging. However, no s ignificant abnormality identified within the abdomen. 2. No biliary ductal dilatation. 3. Numerous suspected bilateral renal cysts. No hydronephrosis. Marked bilateral renal cortical thinn ing. ACT 112: Negative or not required by law. Electronically signed by: Garrick Miles M.D. 02/20/2021 4:45 PM
[2021-02-20] MEDS ORDERED: ONDANSETRON INJ 2 MG/ML 2 ML VIAL IV PRN (16:53)
[2021-02-20] MEDS ORDERED: Nursing to Pharmacy Communication SCH (20:00)
[2021-02-20] MEDS: carvediloL 25 MG TAB PO SCH (20:56)
[2021-02-20] MEDS ORDERED: PNEUMOCOCCAL Polysaccharide Vaccine 25mcg/0.5mL vial/Syr IM ONE (21:30)
[2021-02-21] MEDS: niCARdipine 25 MG in SODIUM CHLORIDE 0.9% 240 ML IV SCH (03:20)
[2021-02-21 05:46] LABS: Basophils # (auto) 0.01 K/uL (0-0.2); Basophils % (auto) 0.1 %; Eosinophils % (auto) 0.8 %; Hematocrit (blood only) 38.1 % (42-52); Hemoglobin 12.1 g/dL (14.0-18.0); Immature Granulocytes # (auto) 0.04 K/uL (0.00-0.02); Immature Granulocytes % (auto) 0.3 %; Lymphocytes # (auto) 0.83 K/uL (1.2-3.4); Lymphocytes % (auto) 6.3 %; Mean Corpuscular Hemoglobin 22.3 pg (25-34); Mean Corpuscular Hgb Conc 31.8 g/dL (32-36); Mean Corpuscular Volume 70.2 fL (80-100); Mean Platelet Volume 9.7 fL (7.4-10.4); Monocytes # (auto) 0.64 K/uL (0.11-0.59); Monocytes % (auto) 4.9 %; Neutrophils # (auto) 11.51 K/uL (1.4-6.5); Neutrophils % (auto) 87.6 %; Platelet Count 199 K/uL (130-400); RDW Coefficient of Variation 15.6 % (11.5-14.5); RDW Standard Deviation 39.6 fL (36.4-46.3); Red Blood Count 5.43 M/uL (4.7-6.1); White Blood Count 13.13 K/uL (4.8-10.8)
[2021-02-21 06:26] LABS: BUN Creatinine Ratio 19.6 (10-20); Calcium 9.1 mg/dl (8.5-10.1); Creatinine Clr Calc Pharmacy 49.9 ml/min; Est GFR (African American) 67.1 ml/min; Est GFR (Non-African American) 57.9 ml/min; Magnesium 2.3 mg/dl (1.8-2.4); Potassium 3.7 mmol/L (3.5-5.1)
[2021-02-21 06:29] LABS: Phosphorus 3.5 mg/dl (2.5-4.9); Troponin I 0.204 ng/ml (0-0.045)
[2021-02-21] MEDS: ACETAMINOPHEN 500 MG TAB PO PRN ×2 (06:35→22:30)
[2021-02-21] MEDS: carvediloL 25 MG TAB PO SCH ×2 (08:16→23:22)
[2021-02-21] MEDS: CYANOCOBALAMIN 500 MCG TABLET (VITAMIN B-12) PO SCH (08:16)
[2021-02-21] MEDS: ATORVASTATIN 20 MG TAB PO SCH (08:16)
[2021-02-21] MEDS: predniSONE 1 MG TAB PO SCH ×3 (08:16→22:30)
[2021-02-21] MEDS: POTASSIUM CHLORIDE CRTAB 20 MEQ TABCR PO SCH (08:16)
[2021-02-21] MEDS: DOXYCYCLINE HYCLATE 100 MG CAP PO SCH (08:16)
[2021-02-21] MEDS: ISOSORBIDE MONO EXTENDED REL 30 MG TABCR PO SCH (08:17)
[2021-02-21] MEDS: PANTOprazole 40 MG TAB PO SCH (08:17)
[2021-02-21] MEDS: INSULIN ASPART 100 UNITS/ML 3 ML PEN SC SCH ×4 (08:18→23:27)
[2021-02-21] MEDS ORDERED: amLODIPine BESYLATE 5 MG TAB PO SCH ×2 (09:00→21:00)
--- NOTE | 2021-02-21 09:56 | Critical Care Progress Note ---
Date of Service February 21, 2021 Assessment & Plan (1) Hypertensive urgency: Plan: 80-year-old male with a history of hypertension, diabetes mellitus type 2 and recently diagnosed pulmonary emboli presenting to the hospital due to hypertension and epistaxis. Blood pressure is much better controlled today. Continue 5 mg amlodipine, Imdur and carvedilol. He is off nicardipine. I am going to give him a one-time dose of 0.5 mg of Bumex via IV given his lower extremity edema. He does have underlying diastolic CHF. I am going to start him on heparin as this is easier to turn off if he runs into any significant issues with epistaxis. If he tolerates this, then recommend transitioning him to oral anticoagulants tomorrow. Lower extremity Doppler demonstrated age-indeterminate deep vein thrombosis in the right popliteal vein. He does have history of a recently diagnosed pulmonary embolism 1 to 2 weeks ago at an outside facility. Troponin is mildly elevated likely due to hypertension. Echo reviewed with evidence of severe diastolic dysfunction. No RV dysfunction seen. LV function appears normal. Continue diet. Stable for transfer out of the ICU today. (2) Epistaxis: (3) Pulmonary emboli: (4) Elevated troponin: (5) Acute anterior epistaxis: (6) DVT (deep venous thrombosis): Admission and Anticipated Discharge Date Admission Date: February 20, 2021 Subjective Patient seen and examined this morning. No further epistaxis noted. Blood pressure is controlled off nicardipine. Denies any headaches. No fevers or c hills. Physical Exam Physical Exam: Constitutional: Patient appears to be of their stated age. Patient is in no apparent distress. Patient is well-developed. Eyes: Pupils are equal round and reactive to light. Conjunctivae are normal. Anicteric sclera. Ears nose, mouth and throat: Mallampati class 2. Right nasal packing in place. Neck: Trachea is midline. Visual inspection is normal. Respiratory: Clear to auscultation bilaterally. No use of accessory muscles. No significant clubbing noted. Cardiovascular: Regular rate and rhythm. No murmurs. 1+ pitting edema in the lower extremities bilaterally. Gastrointestinal: Normal bowel sounds, soft, nontender and nondistended. No hepatosplenomegaly noted. Musculoskeletal: No cyanosis. Patient is able to move all extremities. Strength is 5 out of 5 in the upper and lower extremities. Skin: No rashes, warm dry and intact. Neurologic: No obvious focal neurological deficits seen. Psychiatric: Alert and oriented x3 with a euthymic affect. Results & Data Results & Data ([facility]) Vital Signs (Past 12 Hours) Vital Signs Temp Pulse Pulse Resp BP BP Pulse Ox 02/21/21 08:20 65 15 134/62 91 02/21/21 08:10 69 14 148/64 H 89 L 02/21/21 08:00 98.4 F 68 70 16 152/66 H 147/67 H 90 02/21/21 07:50 70 14 161/66 H 92 02/21/21 07:42 78 14 173/67 H 91 02/21/21 07:30 94 H 21 157/73 H 94 02/21/21 07:21 71 21 122/82 90 02/21/21 07:11 67 15 138/90 91 02/21/21 07:00 65 15 156/69 H 90 02/21/21 06:50 67 14 156/61 H 91 02/21/21 06:40 68 15 163/69 H 92 02/21/21 06:30 69 18 149/70 H 92 02/21/21 06:20 70 14 154/68 H 93 02/21/21 06:10 70 15 169/70 H 92 02/21/21 06:03 90 12 91 02/21/21 05:45 76 14 147/67 H 93 02/21/21 05:41 98.2 F 02/21/21 05:30 75 15 158/70 H 94 02/21/21 05:16 73 13 141/89 H 91 02/21/21 05:00 69 12 156/67 H 90 02/21/21 04:45 73 13 139/79 91 02/21/21 04:30 66 12 155/80 H 91 02/21/21 04:15 67 13 146/69 H 91 02/21/21 04:01 67 12 144/67 H 90 02/21/21 03:46 64 15 144/95 H 91 02/21/21 03:30 65 17 148/72 H 92 02/21/21 03:21 98.8 F 02/21/21 03:16 63 13 145/65 H 92 02/21/21 03:00 65 14 145/65 H 92 02/21/21 02:45 67 13 147/62 H 92 07/25/21 02:30 72 18 168/84 H 94 02/21/21 02:16 65 149/69 H 90 02/21/21 02:01 65 17 151/64 H 92 02/21/21 01:45 68 14 155/65 H 92 02/21/21 01:30 66 18 145/60 H 91 02/21/21 01:15 67 12 152/66 H 91 02/21/21 01:00 68 12 153/68 H 92 02/21/21 00:45 65 147/86 H 91 02/21/21 00:30 71 148/62 H 92 02/21/21 00:15 66 15 154/66 H 91 02/21/21 00:00 76 14 141/67 H 91 02/20/21 23:45 65 13 153/85 H 91 02/20/21 23:36 98.2 F 02/20/21 23:30 66 13 162/70 H 94 02/20/21 23:15 69 14 162/75 H 02/20/21 23:00 66 15 164/78 H 02/20/21 22:40 74 13 154/80 H 02/20/21 22:30 73 14 169/79 H 02/20/21 22:15 83 20 168/68 H 02/20/21 22:00 98.4 F 69 147/79 H vital signs, labs and imaging personally reviewed Coding Level of Care Code 75090 Subseq Hosp Care Lvl 3 Diagnoses Hypertensive urgency I16.0 Epistaxis R04.0 Pulmonary emboli I26.99 Elevated troponin R79.89 Acute anterior epistaxis R04.0 DVT (deep venous thrombosis) I82.409
[2021-02-21] MEDS ORDERED: Heparin IV Adult Wt-Based Standard *NO* Bolus Protocol IV SCH (10:00)
[2021-02-21] MEDS ORDERED: BUMETANIDE 0.5 MG in SYRINGE 0 ML IV ONE (10:30)
--- NOTE | 2021-02-21 10:49 | Hospitalist Progress Note ---
Date of Service February 21, 2021 Assessment & Plan (1) Hypertensive emergency: Plan: 80 y/o M Hx HTN, HLD, DM II, pulmonary emboli, CKD III, colon and prostate CA in remission. The pt was diagnosed with BL pulmonary emboli and pneumonia one week prior. He was discharged for [place] on Eliquis and doxycycline. He developed epistaxis today and presented to the ER therefore. On arrival to the ER his SBP was over 250. SBP > 250 with elevated troponin and epistaxis. Suspect somewhat due to not taking his medications on day of admission. Improved in the ICU with nicardipine drip now discontinued. Continue his usual medications with carvedilol 25mg PO BID, ISMN 30mg PO daily. Amlodipine 5mg PO daily added Additional Bumex to 0.5 mg IV one dose given by highway engineer today. (2) Epistaxis: Plan: In setting of Eliquis use Will hold off restarting anticoagulation since epistaxis still ongoing, consider starting heparin IV tomorrow, would avoid going straight back onto Eliquis. On admission INR 1.1, PTT 1.2 Consult ENT (3) Elevated troponin: Plan: Continue to trend troponin since it has been rising. No chest pain or shortness of breath to suggest ACS. Suspected demand-ischemia in setting of hypertensive emergency. TTE -moderate concentric left ventricular hypertrophy, no regional wall abnormalities, LVEF 60 to 65%. No significant valvular abnormality. (4) Microcytic anemia: Plan: Repeat CBC, Ferritin and transferring sats with AM labs (5) Pulmonary emboli: Plan: BL pulmonary emboli at previous hospitalization - will need to resume anticoagulation prior to discharge. US venous doppler here - Age indeterminate nonocclusive deep venous thrombus within the right popliteal vein. (6) DM II (diabetes mellitus, type II), controlled: Plan: HbA1C in AM Outpatient regimen - Januvia 50mg PO daily Insulin correction factor only -no insulin required today. (7) Pneumonia: Plan: Repeat CXR. Continue doxycycline from prior hospitalization. HIM request for prior hospitalization discharge summary (8) CKD (chronic kidney disease), stage III: Plan: At baseline. Plan: VTE prophylaxis - SCDs, holding anticoagulation as above. Code - full Disposition - now off nicardipine drip can transfer to PCU. Admission and Anticipated Discharge Date Admission Date: February 20, 2021 Subjective Initial plan to restart heparin this morning but he reports nose bleed is ongoing. Not yet been seen by ENT. Patient reports no shortness of breath. Hypertension this morning better controlled in ICU although just stopped nicardipine drip. Regarding his elevated troponin he denies any chest pain or shortness of breath. Tried calling his girlfriend Cat over the phone but no answer at number on EHR. Review of Systems Review of Systems: All systems reviewed & are unremarkable except as noted in HPI & below Physical Exam Constitutional: WD/WN, vitals as above Eyes: + anicteric sclerae; normal pupil size ENMT: Mouth: oral mucous membranes not dry Right nares packing in place Neck: trachea midline, no thyromegaly Respiratory: normal respiratory effort, lungs clear to auscultation Cardiovascular: Rate/Rhythm: regular rate and regular rhythm Heart Sounds: no murmur Extremities: normal capillary refill and + pedal edema (1+ pitting to ankles); no calf tenderness Gastrointestinal (Abdomen): normal bowel sounds, soft, nontender, no hepatosplenomegaly Musculoskeletal: no cyanosis or clubbing, extremities motor strength 5/5 Skin: no rashes, warm and dry Psychiatric: A+Ox3, euthymic affect Results & Data Results & Data ([facility]) Vital Signs (Past 12 Hours) Vital Signs Temp Pulse Pulse Resp BP BP Pulse Ox 02/21/21 08:20 65 15 134/62 91 02/21/21 08:10 69 14 148/64 H 89 L 02/21/21 08:00 36.9 C 68 70 16 152/66 H 147/67 H 90 02/21/21 07:50 70 14 161/66 H 92 02/21/21 07:42 78 14 173/67 H 91 02/21/21 07:30 94 H 21 157/73 H 94 02/21/21 07:21 71 21 122/82 90 02/21/21 07:11 67 15 138/90 91 02/21/21 07:00 65 15 156/69 H 90 02/21/21 06:50 67 14 156/61 H 91 02/21/21 06:40 68 15 163/69 H 92 02/21/21 06:30 69 18 149/70 H 92 02/21/21 06:20 70 14 154/68 H 93 02/21/21 06:10 70 15 169/70 H 92 02/21/21 06:03 90 12 91 02/21/21 05:45 76 14 147/67 H 93 02/21/21 05:41 36.8 C 02/21/21 05:30 75 15 158/70 H 94 02/21/21 05:16 73 13 141/89 H 91 02/21/21 05:00 69 12 156/67 H 90 02/21/21 04:45 73 13 139/79 91 02/21/21 04:30 66 12 155/80 H 91 02/21/21 04:15 67 13 146/69 H 91 02/21/21 04:01 67 12 144/67 H 90 02/21/21 03:46 64 15 144/95 H 91 02/21/21 03:30 65 17 148/72 H 92 02/21/21 03:21 37.1 C 02/21/21 03:16 63 13 145/65 H 92 02/21/21 03:00 65 14 145/65 H 92 02/21/21 02:45 67 13 147/62 H 92 02/21/21 02:30 72 18 168/84 H 94 02/21/21 02:16 65 149/69 H 90 02/21/21 02:01 65 17 151/64 H 92 02/21/21 01:45 68 14 155/65 H 92 02/21/21 01:30 66 18 145/60 H 91 02/21/21 01:15 67 12 152/66 H 91 02/21/21 01:00 68 12 153/68 H 92 02/21/21 00:45 65 147/86 H 91 02/21/21 00:30 71 148/62 H 92 02/21/21 00:15 66 15 154/66 H 91 02/21/21 00:00 76 14 141/67 H 91 02/20/21 23:45 65 13 153/85 H 91 02/20/21 23:36 36.8 C 02/20/21 23:30 66 13 162/70 H 94 02/20/21 23:15 69 14 162/75 H 02/20/21 23:00 66 15 164/78 H PG Care Time/CCT Total # of Minutes Spent Total Time Spent with Patient: Total time spent is greater than 50% in coordination of care (as documented) at patient's floor/unit and/or counseling patient: Coding Level of Care Code 25887 Subseq Hosp Care Lvl 3 Diagnoses Elevated troponin R79.89 Pulmonary emboli I26.99 CKD (chronic kidney disease), stage III N18.30 DM II (diabetes mellitus, type II), controlled E11.9 Epistaxis R04.0 Hypertensive emergency I16.1 Pneumonia J18.9 Microcytic anemia D50.9
[2021-02-21] MEDS ORDERED: HEPARIN SODIUM/DEXTROSE 25,000 UNITS/500 ML BAG IV SCH (11:00)
[2021-02-21] MEDS ORDERED: hydrALAZINE HCL 20 MG/ML VIAL IV PRN ×2 (19:19→19:38)
--- NOTE | 2021-02-21 21:41 | XRay Report ---
XR chest 1V portable CLINICAL HISTORY: epistaxis, pneumonia COMPARISON STUDY: June 24, 2019 FINDINGS: No definite pneumothorax seen however evaluation is limited because the right lung apex is partially obscured by patient's chin.. No pleural effusion. No large infiltrates or consolidative lesions are seen. Cardiomediastinal silhouette is mildly enlarged. No significant pulmonary vascular congestion.. Osseous structures: Degenerative changes of the spine. IMPRESSION: 1. Mild cardiomegaly. ACT 112: Negative or not required by law. The above report was generated using voice recognition software. It may contain grammatical, syntax o r spelling errors. Electronically signed by: Nilam Donovan DO 02/21/2021 9:39 PM
[2021-02-21] MEDS: CALCIUM CARBONATE 500 MG CHEWABLE TAB PO PRN (23:21)
[2021-02-22 06:30] LABS: Basophils # (auto) 0.01 K/uL (0-0.2); Basophils % (auto) 0.1 %; Eosinophils # (auto) 0.19 K/uL (0-0.5); Eosinophils % (auto) 1.7 %; Hematocrit (blood only) 34.7 % (42-52); Hemoglobin 11.2 g/dL (14.0-18.0); Immature Granulocytes # (auto) 0.03 K/uL (0.00-0.02); Immature Granulocytes % (auto) 0.3 %; Lymphocytes # (auto) 0.99 K/uL (1.2-3.4); Lymphocytes % (auto) 8.9 %; Mean Corpuscular Hgb Conc 32.3 g/dL (32-36); Mean Corpuscular Volume 71.3 fL (80-100); Mean Platelet Volume 9.4 fL (7.4-10.4); Monocytes # (auto) 0.85 K/uL (0.11-0.59); Monocytes % (auto) 7.7 %; Neutrophils # (auto) 9.02 K/uL (1.4-6.5); Neutrophils % (auto) 81.3 %; Platelet Count 180 K/uL (130-400); RDW Coefficient of Variation 15.6 % (11.5-14.5); RDW Standard Deviation 40.9 fL (36.4-46.3); Red Blood Count 4.87 M/uL (4.7-6.1); White Blood Count 11.09 K/uL (4.8-10.8)
[2021-02-22 06:40] LABS: INR 1.1 (0.9-1.1); Partial Thromboplastin Ratio 1.3; Partial Thromboplastin Time 33.2 Seconds (21.0-31.0); Prothrombin Time 11.1 Seconds (9.0-12.0)
[2021-02-22 06:58] LABS: BUN Creatinine Ratio 15.5 (10-20); Calcium 8.4 mg/dl (8.5-10.1); Est GFR (African American) 32.9 ml/min; Est GFR (Non-African American) 28.4 ml/min; Potassium 3.9 mmol/L (3.5-5.1)
[2021-02-22 07:04] LABS: Bilirubin,Total 0.7 mg/dl (0.2-1); Ferritin 230.9 ng/ml (8-388); Globulin 3.1 gm/dl (2.5-4.0); Total Protein 6.1 gm/dl (6.4-8.2); Troponin I 0.212 ng/ml (0-0.045)
[2021-02-22] MEDS: carvediloL 25 MG TAB PO SCH ×2 (07:39→20:02)
[2021-02-22] MEDS: INSULIN ASPART 100 UNITS/ML 3 ML PEN SC SCH ×4 (07:43→20:16)
[2021-02-22 07:45] LABS: Estimated Average Glucose 148 mg/dl; Hemoglobin A1C 6.8 % (4.5-5.6)
[2021-02-22] MEDS: CYANOCOBALAMIN 500 MCG TABLET (VITAMIN B-12) PO SCH (07:45)
[2021-02-22] MEDS: DOXYCYCLINE HYCLATE 100 MG CAP PO SCH (07:45)
[2021-02-22] MEDS: predniSONE 1 MG TAB PO SCH ×3 (07:45→20:02)
[2021-02-22] MEDS ORDERED: amLODIPine BESYLATE 5 MG TAB PO SCH (09:00)
[2021-02-22] MEDS: ISOSORBIDE MONO EXTENDED REL 30 MG TABCR PO SCH (09:45)
[2021-02-22] MEDS: PANTOprazole 40 MG TAB PO SCH (09:45)
[2021-02-22] MEDS: ATORVASTATIN 20 MG TAB PO SCH (09:45)
[2021-02-22] MEDS: POTASSIUM CHLORIDE CRTAB 20 MEQ TABCR PO SCH (09:45)
[2021-02-22] MEDS ORDERED: Heparin IV Adult Wt-Based Standard *NO* Bolus Protocol IV SCH (10:02)
[2021-02-22] MEDS ORDERED: SODIUM CHLORIDE 0.9% 500 ML IV SCH (10:15)
[2021-02-22] MEDS: ACETAMINOPHEN 500 MG TAB PO PRN ×2 (10:44→18:26)
[2021-02-22] MEDS: HEPARIN SODIUM/DEXTROSE 25,000 UNITS/500 ML BAG IV SCH (10:48)
[2021-02-22 18:12] LABS: Partial Thromboplastin Ratio 3.6
[2021-02-22 18:19] LABS: Partial Thromboplastin Time 94.5 Seconds (21.0-31.0)
--- NOTE | 2021-02-22 18:41 | Hospitalist Progress Note ---
Date of Service February 22, 2021 Assessment & Plan (1) Hypertensive emergency: Plan: 80 y/o M Hx HTN, HLD, DM II, pulmonary emboli, CKD III, colon and prostate CA in remission. The pt was diagnosed with BL pulmonary emboli and pneumonia one week prior. He was discharged from [facility] on Eliquis and doxycycline. He developed epistaxis on the day of admission and presented to the ER therefore. On arrival to the ER his SBP was over 250. SBP > 250 with elevated troponin and epistaxis. Suspect somewhat due to not taking his medications on day of admission. Improved in the ICU with nicardipine drip now discontinued. Continue his usual medications with carvedilol 25mg PO BID, ISMN 30mg PO daily. Amlodipine 5mg PO daily added Additional Bumex to 0.5 mg IV one dose given by body masker on 02/21 but now with acute kidney injury Blood pressures remain quite elevated at times Echocardiogram here significant for severe LVH with preserved EF 65-70% and small posterior pericardial effusion without tamponade physiology -Increase amlodipine to 5 mg p.o. twice daily -Continue to monitor blood pressures (2) Epistaxis: Plan: In setting of Eliquis use Now stopped with nasal balloon in place in the right nare Eliquis was held for 2 days-we will restart heparin drip now and watch for further bleeding given that he has an ongoing DVT in the right lower extremity and recent PEs As long as no further bleeding, is not a candidate for IVC filter Consult ENT canceled-discussed the case with Dr. Louise Qunitero on the phone-she recommends nasal saline spray to each nostril 4 times daily until nasal balloon is removed 7 days from the time of placement. This will keep the balloon moist and keep it from sticking to the forming scab inside the nose. She also recommends starting prophylactic antibiotics with Augmentin-we will start this today and continue times 1 week -She will arrange for follow-up in her office at the end of this week or perhaps on Monday for nasal balloon removal and replacement packing-nasal balloon must stay in place for 7 days in the setting of anticoagulation -She asks that the anticoagulation be held for 24 hours prior to removal of packing-I think this should be fine given that his DVT is nonocclusive and low clot burden, no evidence of hypotension or right-sided heart failure on echocardiogram, no hypoxia and otherwise doing okay. Would recommend restarting Lovenox however the day after packing is exchanged -If has recurrent bleeding while in the hospital, ENT is willing to come in right away, but otherwise no need to be seen in the hospital by ENT (3) Elevated troponin: Plan: Troponin with mild elevation but stable at 0.2x3 ECG with T wave changes in the inferior leads improved from previous No chest pain or shortness of breath to suggest ACS. Suspected demand-ischemia in setting of hypertensive emergency. TTE -severe concentric left ventricular hypertrophy, no regional wall abnormalities, LVEF 60 to 65%. No significant valvular abnormality. -Control blood pressure -Continue isosorbide, atorvastatin (4) Microcytic anemia: Plan: MCV is quite low at 70 and has been for a long time He may have a thalassemia as iron studies only show mild transferrin saturation decreased at 14% but with normal ferritin Did have a slight hemoglobin drop with epistaxis down to 11.2 Follow CBC in the morning (5) Pulmonary emboli: Plan: BL pulmonary emboli at previous hospitalization -resumed heparin drip on 02/22 Will discuss with charge on Lovenox rather than Eliquis until after packing of epistaxis is completed with ENT as an outpatient in case of rebleeding US venous doppler here - Age indeterminate nonocclusive deep venous thrombus within the right popliteal vein. 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, but no signs of cancer -Needs to follow-up for repeat colonoscopy with GI as an outpatient given history of colon cancer (6) DM II (diabetes mellitus, type II), controlled: Plan: HbA1C well controlled at 6.8% Outpatient regimen - Januvia 50mg PO daily Insulin correction factor only while inpatient (7) Pneumonia: Plan: Repeat CXR here is negative for pneumonia Can discontinue doxycycline Will be on Augmentin as above for prevention of infection given nasal packing (8) Acute kidney injury: Plan: With creatinine up to 2.13 today after receiving IV Bumex on 02/21 Give 500 mL of normal saline Follow BMP in the morning (9) CKD (chronic kidney disease), stage III: Plan: With acute kidney injury as above (10) DVT (deep venous thrombosis): Plan: As above Heparin drip Plan: VTE prophylaxis -Heparin drip Code - full Disposition -continued stay in the PCU, possible discharge tomorrow if no f urther epistaxis and blood pressure is better controlled Admission and Anticipated Discharge Date Admission Date: February 20, 2021 Subjective Pt feels uncomfortable with the nasal balloon in place. No bleeding today from nose. No CP or SOB, has mild cough productive of sputum. Started on heparin gtt today and no bleeding. No nausea or abd pain. I discussed his care with ENT Dr. Quintero on the phone Tele with NSR, rates 60-70s, PACs Review of Systems Review of Systems: All systems reviewed & are unremarkable except as noted in HPI & below Physical Exam Constitutional: WD/WN, vitals as above Eyes: + anicteric sclerae ENMT: Nose: + external nose abnormality (nasal balloon in place right nare) Neck: trachea midline, no thyromegaly Respiratory: normal respiratory effort, lungs clear to auscultation Cardiovascular: RRR, no murmur, no edema Chest (Breasts): Chest: normal inspection of chest Gastrointestinal (Abdomen): normal bowel sounds, soft, nontender, no hepatosplenomegaly Musculoskeletal: Extremities: extremities normal to inspection; no cyanosis and no clubbing Skin: no rashes, warm and dry Neurologic: moves all extremities and awake; no focal motor deficits Psychiatric: A+Ox3, euthymic affect Lymphatic: no lymphedema Results & Data Results & Data ([facility]) Vital Signs (Past 12 Hours) Vital Signs Temp Pulse Pulse Resp BP Pulse Ox 02/22/21 17:28 63 02/22/21 15:45 36.7 C 59 L 16 160/79 H 97 02/22/21 11:09 66 02/22/21 08:52 36.8 C 65 18 162/74 H 97 02/22/21 07:26 36.7 C 60 16 207/85 H 95 Laboratory Results 02/22/21 02/22/21 02/22/21 Range/Units 17:12 16:21 11:30 WBC (4.8-10.8) K/uL RBC (4.7-6.1) M/uL Hgb (14.0-18.0) g/dL Hct (42-52) % MCV (80-100) fL MCH (25-34) pg MCHC (32-36) g/dL RDW Std Deviation (36.4-46.3) fL RDW Coeff of Derek (11.5-14.5) % Plt Count (130-400) K/uL MPV (7.4-10.4) fL Immature Gran % (Auto) % Neut % (Auto) % Lymph % (Auto) % [place] % (Auto) % Eos % (Auto) % Baso % (Auto) % Neut # (Auto) (1.4-6.5) K/uL Lymph # (Auto) (1.2-3.4) K/uL [place] # (Auto) (0.11-0.59) K/uL Eos # (Auto) (0-0.5) K/uL Baso # (Auto) (0-0.2) K/uL Immature Gran # (Auto) (0.00-0.02) K/uL PT (9.0-12.0) Seconds INR (0.9-1.1) APTT 94.5 H* (21.0-31.0) Seconds PTT Ratio 3.6 Sodium (136-145) mmol/L Potassium (3.5-5.1) mmol/L Chloride (98-107) mmol/L Carbon Dioxide (21-32) mmol/L Anion Gap (3-11) BUN (7-18) mg/dl Creatinine (0.6-1.4) mg/dl Est Cr Clr Drug Dosing ml/min Est GFR ( Amer) ml/min Est GFR (Non-Af Amer) ml/min BUN/Creatinine Ratio (10-20) Glucose (70-99) mg/dl POC Glucose 111 H 136 H (70-99) mg/dl Estimat Average Glucose mg/dl Hemoglobin A1c (4.5-5.6) % Calcium (8.5-10.1) mg/dl Iron (35-175) mcg/dl Transferrin (200-360) mg/dl Transferrin % Sat (20-50) % Ferritin (8-388) ng/ml Total Bilirubin (0.2-1) mg/dl AST (15-37) U/L ALT (12-78) U/L Alkaline Phosphatase (45-117) U/L Troponin I (0-0.045) ng/ml Total Protein (6.4-8.2) gm/dl Albumin (3.4-5.0) gm/dl Globulin (2.5-4.0) gm/dl Albumin/Globulin Ratio (0.9-2) 02/22/21 02/22/21 02/22/21 Range/Units 07:29 06:16 06:16 WBC (4.8-10.8) K/uL RBC (4.7-6.1) M/uL Hgb (14.0-18.0) g/dL Hct (42-52) % MCV (80-100) fL MCH (25-34) pg MCHC (32-36) g/dL RDW Std Deviation (36.4-46.3) fL RDW Coeff of Derek (11.5-14.5) % Plt Count (130-400) K/uL MPV (7.4-10.4) fL Immature Gran % (Auto) % Neut % (Auto) % Lymph % (Auto) % [place] % (Auto) % Eos % (Auto) % Baso % (Auto) % Neut # (Auto) (1.4-6.5) K/uL Lymph # (Auto) (1.2-3.4) K/uL [place] # (Auto) (0.11-0.59) K/uL Eos # (Auto) (0-0.5) K/uL Baso # (Auto) (0-0.2) K/uL Immature Gran # (Auto) (0.00-0.02) K/uL PT 11.1 (9.0-12.0) Seconds INR 1.1 (0.9-1.1) APTT 33.2 H (21.0-31.0) Seconds PTT Ratio 1.3 Sodium (136-145) mmol/L Potassium (3.5-5.1) mmol/L Chloride (98-107) mmol/L Carbon Dioxide (21-32) mmol/L Anion Gap (3-11) BUN (7-18) mg/dl Creatinine (0.6-1.4) mg/dl Est Cr Clr Drug Dosing ml/min Est GFR ( Amer) ml/min Est GFR (Non-Af Amer) ml/min BUN/Creatinine Ratio (10-20) Glucose (70-99) mg/dl POC Glucose 109 H (70-99) mg/dl Estimat Average Glucose 148 mg/dl Hemoglobin A1c 6.8 H (4.5-5.6) % Calcium (8.5-10.1) mg/dl Iron (35-175) mcg/dl Transferrin (200-360) mg/dl Transferrin % Sat (20-50) % Ferritin (8-388) ng/ml Total Bilirubin (0.2-1) mg/dl AST (15-37) U/L ALT (12-78) U/L Alkaline Phosphatase (45-117) U/L Troponin I (0-0.045) ng/ml Total Protein (6.4-8.2) gm/dl Albumin (3.4-5.0) gm/dl Globulin (2.5-4.0) gm/dl Albumin/Globulin Ratio (0.9-2) 02/22/21 02/22/21 02/21/21 Range/Units 06:16 06:16 20:23 WBC 11.09 H (4.8-10.8) K/uL RBC 4.87 (4.7-6.1) M/uL Hgb 11.2 L (14.0-18.0) g/dL Hct 34.7 L (42-52) % MCV 71.3 L (80-100) fL MCH 23.0 L (25-34) pg MCHC 32.3 (32-36) g/dL RDW Std Deviation 40.9 (36.4-46.3) fL RDW Coeff of Derek 15.6 H (11.5-14.5) % Plt Count 180 (130-400) K/uL MPV 9.4 (7.4-10.4) fL Immature Gran % (Auto) 0.3 % Neut % (Auto) 81.3 % Lymph % (Auto) 8.9 % [place] % (Auto) 7.7 % Eos % (Auto) 1.7 % Baso % (Auto) 0.1 % Neut # (Auto) 9.02 H (1.4-6.5) K/uL Lymph # (Auto) 0.99 L (1.2-3.4) K/uL [place] # (Auto) 0.85 H (0.11-0.59) K/uL Eos # (Auto) 0.19 (0-0.5) K/uL Baso # (Auto) 0.01 (0-0.2) K/uL Immature Gran # (Auto) 0.03 H (0.00-0.02) K/uL PT (9.0-12.0) Seconds INR (0.9-1.1) APTT (21.0-31.0) Seconds PTT Ratio Sodium 140 (136-145) mmol/L Potassium 3.9 (3.5-5.1) mmol/L Chloride 107 (98-107) mmol/L Carbon Dioxide 29 (21-32) mmol/L Anion Gap 4.0 (3-11) BUN 33 H (7-18) mg/dl Creatinine 2.13 H D (0.6-1.4) mg/dl Est Cr Clr Drug Dosing 30.0 ml/min Est GFR ( Amer) 32.9 ml/min Est GFR (Non-Af Amer) 28.4 ml/min BUN/Creatinine Ratio 15.5 (10-20) Glucose 100 H (70-99) mg/dl POC Glucose 141 H (70-99) mg/dl Estimat Average Glucose mg/dl Hemoglobin A1c (4.5-5.6) % Calcium 8.4 L (8.5-10.1) mg/dl Iron 27 L (35-175) mcg/dl Transferrin 137 L (200-360) mg/dl Transferrin % Sat 14 L (20-50) % Ferritin 230.9 (8-388) ng/ml Total Bilirubin 0.7 (0.2-1) mg/dl AST 18 (15-37) U/L ALT 21 (12-78) U/L Alkaline Phosphatase 64 (45-117) U/L Troponin I 0.212 H* (0-0.045) ng/ml Total Protein 6.1 L (6.4-8.2) gm/dl Albumin 3.0 L (3.4-5.0) gm/dl Globulin 3.1 (2.5-4.0) gm/dl Albumin/Globulin Ratio 1.0 (0.9-2) 02/21/21 Range/Units 19:27 WBC (4.8-10.8) K/uL RBC (4.7-6.1) M/uL Hgb (14.0-18.0) g/dL Hct (42-52) % MCV (80-100) fL MCH (25-34) pg MCHC (32-36) g/dL RDW Std Deviation (36.4-46.3) fL RDW Coeff of Derek (11.5-14.5) % Plt Count (130-400) K/uL MPV (7.4-10.4) fL Immature Gran % (Auto) % Neut % (Auto) % Lymph % (Auto) % [place] % (Auto) % Eos % (Auto) % Baso % (Auto) % Neut # (Auto) (1.4-6.5) K/uL Lymph # (Auto) (1.2-3.4) K/uL [place] # (Auto) (0.11-0.59) K/uL Eos # (Auto) (0-0.5) K/uL Baso # (Auto) (0-0.2) K/uL Immature Gran # (Auto) (0.00-0.02) K/uL PT (9.0-12.0) Seconds INR (0.9-1.1) APTT (21.0-31.0) Seconds PTT Ratio Sodium (136-145) mmol/L Potassium (3.5-5.1) mmol/L Chloride (98-107) mmol/L Carbon Dioxide (21-32) mmol/L Anion Gap (3-11) BUN (7-18) mg/dl Creatinine (0.6-1.4) mg/dl Est Cr Clr Drug Dosing ml/min Est GFR ( Amer) ml/min Est GFR (Non-Af Amer) ml/min BUN/Creatinine Ratio (10-20) Glucose (70-99) mg/dl POC Glucose (70-99) mg/dl Estimat Average Glucose mg/dl Hemoglobin A1c (4.5-5.6) % Calcium (8.5-10.1) mg/dl Iron (35-175) mcg/dl Transferrin (200-360) mg/dl Transferrin % Sat (20-50) % Ferritin (8-388) ng/ml Total Bilirubin (0.2-1) mg/dl AST (15-37) U/L ALT (12-78) U/L Alkaline Phosphatase (45-117) U/L Troponin I 0.222 H* (0-0.045) ng/ml Total Protein (6.4-8.2) gm/dl Albumin (3.4-5.0) gm/dl Globulin (2.5-4.0) gm/dl Albumin/Globulin Ratio (0.9-2) PG Care Time/CCT Total # of Minutes Spent Total Time Spent with Patient: Total time spent is greater than 50% in coordination of care (as documented) at patient's floor/unit and/or counseling patient: Coding Level of Care Code 74410 Subseq Hosp Care Lvl 3 Diagnoses Hypertensive emergency I16.1 Epistaxis R04.0 Elevated troponin R79.89 Microcytic anemia D50.9 Pulmonary emboli I26.99 DM II (diabetes mellitus, type II), controlled E11.9 Pneumonia J18.9 CKD (chronic kidney disease), stage III N18.30 Acute kidney injury N17.9 DVT (deep venous thrombosis) I82.409
[2021-02-22] MEDS: amLODIPine BESYLATE 5 MG TAB PO SCH (20:03)
[2021-02-22] MEDS: SODIUM CHLORIDE 0.65% NA SOLN 45 ML (OCEAN) SCH ×2 (20:15→20:43)
[2021-02-22] MEDS: AMOXICILLIN/CLAVULANATE 875 MG TAB PO SCH (20:16)
[2021-02-23 03:29] LABS: Eosinophils # (auto) 0.22 K/uL (0-0.5); Eosinophils % (auto) 2.3 %; Hematocrit (blood only) 33.1 % (42-52); Hemoglobin 10.7 g/dL (14.0-18.0); Immature Granulocytes # (auto) 0.03 K/uL (0.00-0.02); Immature Granulocytes % (auto) 0.3 %; Lymphocytes # (auto) 1.07 K/uL (1.2-3.4); Lymphocytes % (auto) 11.4 %; Mean Corpuscular Hemoglobin 22.4 pg (25-34); Mean Corpuscular Hgb Conc 32.3 g/dL (32-36); Mean Corpuscular Volume 69.2 fL (80-100); Mean Platelet Volume 9.5 fL (7.4-10.4); Monocytes # (auto) 0.74 K/uL (0.11-0.59); Monocytes % (auto) 7.9 %; Neutrophils # (auto) 7.31 K/uL (1.4-6.5); Neutrophils % (auto) 78.1 %; Platelet Count 171 K/uL (130-400); RDW Coefficient of Variation 15.6 % (11.5-14.5); RDW Standard Deviation 38.9 fL (36.4-46.3); Red Blood Count 4.78 M/uL (4.7-6.1); White Blood Count 9.37 K/uL (4.8-10.8)
[2021-02-23 03:46] LABS: BUN Creatinine Ratio 21.1 (10-20); Calcium 8.2 mg/dl (8.5-10.1); Creatinine Clr Calc Pharmacy 39.2 ml/min; Est GFR (African American) 45.4 ml/min; Est GFR (Non-African American) 39.2 ml/min; Magnesium 2.1 mg/dl (1.8-2.4); Potassium 3.5 mmol/L (3.5-5.1)
[2021-02-23 03:47] LABS: Echinocytes 1+; Microcytosis Present; Ovalocytes 1+
[2021-02-23 03:53] LABS: Partial Thromboplastin Ratio 4.3
[2021-02-23 03:55] LABS: Partial Thromboplastin Time 113.3 Seconds (21.0-31.0)
[2021-02-23] MEDS: ACETAMINOPHEN 500 MG TAB PO PRN (06:13)
[2021-02-23] MEDS: INSULIN ASPART 100 UNITS/ML 3 ML PEN SC SCH ×2 (08:18→12:25)
[2021-02-23] MEDS: PANTOprazole 40 MG TAB PO SCH (08:19)
[2021-02-23] MEDS: carvediloL 25 MG TAB PO SCH (08:19)
[2021-02-23] MEDS: AMOXICILLIN/CLAVULANATE 875 MG TAB PO SCH (08:19)
[2021-02-23] MEDS: ATORVASTATIN 20 MG TAB PO SCH (08:19)
[2021-02-23] MEDS: POTASSIUM CHLORIDE CRTAB 20 MEQ TABCR PO SCH (08:19)
[2021-02-23] MEDS: amLODIPine BESYLATE 5 MG TAB PO SCH (08:19)
[2021-02-23] MEDS: ISOSORBIDE MONO EXTENDED REL 30 MG TABCR PO SCH (08:19)
[2021-02-23] MEDS: SODIUM CHLORIDE 0.65% NA SOLN 45 ML (OCEAN) SCH ×2 (08:20→12:25)
[2021-02-23] MEDS: CYANOCOBALAMIN 500 MCG TABLET (VITAMIN B-12) PO SCH (08:20)
[2021-02-23] MEDS: predniSONE 1 MG TAB PO SCH ×2 (08:20→13:24)
[2021-02-23] MEDS: HEPARIN SODIUM/DEXTROSE 25,000 UNITS/500 ML BAG IV SCH (08:25)
[2021-02-23] MEDS: CALCIUM CARBONATE 500 MG CHEWABLE TAB PO PRN (08:35)
[2021-02-23 12:21] LABS: Hematocrit (blood only) 34.1 % (42-52); Hemoglobin 10.7 g/dL (14.0-18.0); Mean Corpuscular Hgb Conc 31.4 g/dL (32-36); Mean Corpuscular Volume 70.2 fL (80-100); Mean Platelet Volume 10.2 fL (7.4-10.4); Platelet Count 200 K/uL (130-400); RDW Coefficient of Variation 15.6 % (11.5-14.5); Red Blood Count 4.86 M/uL (4.7-6.1); White Blood Count 8.77 K/uL (4.8-10.8)
[2021-02-23 12:45] LABS: Partial Thromboplastin Ratio 2.3
[2021-02-23 12:46] LABS: Partial Thromboplastin Time 59.6 Seconds (21.0-31.0)
[2021-02-23] MEDS ORDERED: ENOXAPARIN 80 MG/0.8 ML SYR SQ ONE (16:01)
--- NOTE | 2021-02-23 16:09 | Discharge Summary ---
Date of Service February 23, 2021 Admission HPI Per Admitting Provider 80 y/o M Hx HTN, HLD, DM II, pulmonary emboli, CKD III, colon and prostate CA in remission. The pt was diagnosed with BL pulmonary emboli and pneumonia one week prior. He was discharged for [place] on Eliquis and doxycycline. He developed epistaxis today and presented to the ER therefore. On arrival to the ER his SBP was over 250. He received Hydralazine and NTG but did not have a measurable response. Labs are notable for microcytic anemia which appears to be chronic and a + trop which also appears on prior labs. He denies CP, SOB or fevers at the time of admission. His R nare was packed by the ER attending. As an unrelated matter, the pt reports a recent change in bowel habits and was scheduled for an abdominal MRI in the coming weeks. PMH: 1) HTN 2) HLD 3) DM II 4) BL pulmonary emboli 5) Colon CA - treated with surgery only 2005 6) Prostate CA - 2010 7) CKD III 8) Pulmonary emboli 9) Chronic lower extremity edema Surgical: 1) Segmental colectomy 2005 2) Prostatectomy 2010 Social: Does not drink or smoke. 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 Family: Father - HTN Mother - melanoma Principal Diagnosis Epistaxis, Hypertensive urgency Discharge Exam Constitutional WD/WN, vitals as above Eyes + anicteric sclerae ENMT Nose: + external nose abnormality (nasal balloon in place right nare) Neck trachea midline, no thyromegaly Respiratory normal respiratory effort, lungs clear to auscultation Cardiovascular RRR, no murmur, no edema Chest (Breasts) Chest: normal inspection of chest Gastrointestinal (Abdomen) normal bowel sounds, soft, nontender, no hepatosplenomegaly Musculoskeletal Extremities: extremities normal to inspection; no cyanosis and no clubbing Skin no rashes, warm and dry Neurologic moves all extremities and awake; no focal motor deficits Psychiatric A+Ox3, euthymic affect Lymphatic no lymphedema Discharge Data Allergies Allergy/AdvReac Type Severity Reaction Status Date / Time latex Allergy Intermediate Rash Unverified 02/20/21 07:54 Consultations 02/20/21 09:39 ED Decision to Admit Stat 02/20/21 11:46 Consult Molded Goods Controls Operator Routine 02/21/21 19:48 Consult Health Information Management Routine Ordered Studies 02/20/21 11:26 US venous doppler LE BI Routine 02/20/21 11:46 MR abdomen wo con Routine Venous Doppler Study 02/20/21 11:26 BILATERAL LOWER EXTREMITY VENOUS DOPPLER CLINICAL HISTORY: Lower extremity swelling. COMPARISON STUDY: Left lower extremity venous Doppler ultrasound June 24, 2019. TECHNIQUE: Sonography of the deep venous system of the bilateral lower extremities was performed. Compression and augmentation were evaluated. FINDINGS: There is no deep venous thrombus within the left lower extremity. There is age indeterminate deep venous thrombus within the right popliteal vein. This thrombus is nonocclusive. No additional sites of deep venous thrombus are identified. IMPRESSION: Age indeterminate nonocclusive deep venous thrombus within the right popliteal vein. ACT 112: Negative or not required by law. Electronically signed by: Garrick Miles M.D. 02/20/2021 2:08 PM Abdomen MRI 02/20/21 11:46 MR abdomen wo con CLINICAL HISTORY: History of colon cancer. Change in bowel habits.. COMPARISON STUDY: CT of the abdomen June 25, 2019. TECHNIQUE: Utilizing a 1.5 Shanita magnet and dedicated coil, multiplanar, multiecho imaging of the abdomen was performed without intravenous contrast. FINDINGS: This exam is significantly compromised by respiratory motion and lack of postcontrast imaging. No intra or extrahepatic biliary ductal dilatation is present. Liver morphology is normal. Unenhanced images of the spleen, adrenal glands and pancreas are grossly unremarkable with the exception of several subcentimeter T2 hyperintense lesions within the pancreas suggestive of sidebranch IPMNs. No abdominal lymphadenopathy is present. The caliber of visualized small and large bowel are normal. No marrow replacement is identified within visualized skeletal structures. Numerous T2 hyperintense bilateral renal lesions measure up to 5.8 cm. These are suboptimally assessed on this unenhanced exam but likely reflect cysts. T1 hyperintense left renal lesions favor proteinaceous cyst. There is marked bilateral renal cortical thinning. There is no hydronephrosis. Cardiomegaly is noted. IMPRESSION: 1. Technically compromised exam given motion artifact and lack of postcontrast imaging. However, no significant abnormality identified within the abdomen. 2. No biliary ductal dilatation. 3. Numerous suspected bilateral renal cysts. No hydronephrosis. Marked bilateral renal cortical thinning. ACT 112: Negative or not required by law. Electronically signed by: Garrick Miles M.D. 02/20/2021 4:45 PM Chest X-Ray 02/21/21 19:47 XR chest 1V portable CLINICAL HISTORY: epistaxis, pneumonia COMPARISON STUDY: June 24, 2019 FINDINGS: No definite pneumothorax seen however evaluation is limited because the right lung apex is partially obscured by patient's chin.. No pleural effusion. No large infiltrates or consolidative lesions are seen. Cardiomediastinal silhouette is mildly enlarged. No significant pulmonary vascular congestion.. Osseous structures: Degenerative changes of the spine. IMPRESSION: 1. Mild cardiomegaly. ACT 112: Negative or not required by law. The above report was generated using voice recognition software. It may contain grammatical, syntax or spelling errors. Electronically signed by: Nilam Donovan DO 02/21/2021 9:39 PM Hospital Course (1) Hypertensive emergency: 80 y/o M Hx HTN, HLD, DM II, pulmonary emboli, CKD III, colon and prostate CA in remission. The pt was diagnosed with BL pulmonary emboli and pneumonia one week prior. He was discharged from [facility] on Eliquis and doxycycline. He developed epistaxis on the day of admission and presented to the ER therefore. On arrival to the ER his SBP was over 250. SBP > 250 with elevated troponin and epistaxis. Suspect somewhat due to not taking his medications on day of admission. Improved in the ICU with nicardipine drip now discontinued. Continue his usual medications with carvedilol 25mg PO BID, ISMN 30mg PO daily. Amlodipine 5mg PO bid was started and BPs was improved Additional Bumex to 0.5 mg IV one dose given by pumper gauger on 02/21 but then with acute kidney injury which resolved with 500mL NS IVFs Echocardiogram here significant for severe LVH with preserved EF 65-70% and small posterior pericardial effusion without tamponade physiology BPs much improved, dc to home and follow BPs at home (2) Epistaxis: In setting of Eliquis use Now stopped with nasal balloon in place in the right nare Eliquis was held for 2 days-then started heparin drip and had no further bleeding - has an ongoing DVT in the right lower extremity and recent PEs Consult ENT -discussed the case with Dr. Louise Quintero on the phone-she recommends nasal saline spray to each nostril 4 times daily until nasal balloon is removed 7 days from the time of placement. This will keep the balloon moist and keep it from sticking to the forming scab inside the nose. She also recommends starting prophylactic antibiotics with Augmentin-we will start this today and continue times 1 week -She will arrange for follow-up in her office at the end of this week or perhaps on Monday for nasal balloon removal and replacement packing-nasal balloon must stay in place for 7 days in the setting of anticoagulation -She asks that the anticoagulation be held for 24 hours prior to removal of packing-I think this should be fine given that his DVT is nonocclusive and low clot burden, no evidence of hypotension or right-sided heart failure on echocardiogram, no hypoxia and otherwise doing okay. Would recommend restarting Lovenox however the day after packing is exchanged and then if no further bleeding, can resume Eliquis when Lovenox runs out (3) Elevated troponin: Troponin with mild elevation but stable at 0.2x3 ECG with T wave changes in the inferior leads improved from previous No chest pain or shortness of breath to suggest ACS. Suspected demand-ischemia in setting of hypertensive emergency. TTE -severe concentric left ventricular hypertrophy, no regional wall abnorm alities, LVEF 60 to 65%. No significant valvular abnormality. -Control blood pressure -Continue isosorbide, atorvastatin (4) Microcytic anemia: MCV is quite low at 70 and has been for a long time He may have a thalassemia as iron studies only show mild transferrin saturation decreased at 14% but with normal ferritin Did have a slight hemoglobin drop with epistaxis down to 10.7 Follow CBCas outpt Fe studies normal, B12, folate normal (5) Pulmonary emboli: BL pulmonary emboli at previous hospitalization -resumed heparin drip on 02/22 after ELiquis held x 2 days Will discharge on Lovenox rather than Eliquis until after packing of epistaxis is completed with ENT as an outpatient in case of rebleeding, then restart ELiquis after packing removed US venous doppler here - Age indeterminate nonocclusive deep venous thrombus within the right popliteal vein. Unclear cause of his VTE but reports sedentary lifestyle -Need to obtain records from outside hospital-never received -MRI of the abdomen performed here which shows sidebranch IPMNs of the pancreas, but no signs of cancer -Needs to follow-up for repeat colonoscopy with GI as an outpatient given history of colon cancer -f/u with PCP -needs anticoagulation x 6 months (6) DM II (diabetes mellitus, type II), controlled: HbA1C well controlled at 6.8% Outpatient regimen - Januvia 50mg PO daily Insulin correction factor only while inpatient (7) Pneumonia: Repeat CXR here is negative for pneumonia Can discontinue doxycycline Will be on Augmentin as above for prevention of infection given nasal packing (8) Acute kidney injury: With creatinine up to 2.13 after receiving IV Bumex on 02/21, now improved to 1.6 on day of discharge after IVFs (9) CKD (chronic kidney disease), stage III: With acute kidney injury as above (10) DVT (deep venous thrombosis): As above (11) 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 abdomen f/u repeat imaging as outpt in 6 months Code - full Disposition -dc to home with home health Total Time Total Time Spent Total Time Spent (In Minutes): 40 min Discharge Plan Discharge Items Patient Disposition: Home - Home Health Services Reason For Visit: HTN URGENCY, ELEVATED TROP,EPSITAXIS Discharge Diagnosis: Hypertensive urgency, Epistaxis, DVT/PE Condition on Discharge: Good Activity: Resume your previous activity Non-emergency contact: Primary Care Provider and Surgeon Call non-emergency contact if: you have any medication questions and your symptoms worsen Follow-up/Referrals: Toni Madera DO [Primary Care Provider] - (Follow up within 1-2 weeks) Louise Quintero MD [Surgeon] - (Please call to schedule an appointment for this Monday to remove your nasal balloon.) Diet: Heart Healthy Addtl Attending Provider Instructions: Please spray nasal saline in both nostrils four times a day until seen by the ENT Surgeon. Continue on the antibiotics called Augmentin for 1 week. If you develop any bleeding again around the nasal balloon, please return to the ER. The balloon should stay in place until you are seen in the office later this week with Dr. Quintero for removal. Please continue ONLY on the LOVENOX blood thinner injections twice a day until after seen by the ENT doctor. When ok with ENT, you can then STOP the LOVENOX injections and restart the Eliquis. Please HOLD the LOVENOX 24 hours prior to your appointment with the ENT to prevent heavy bleeding when she goes to remove your nasal balloon. Your blood pressures were severely elevated here and you were started on a new blood pressure medication called amlodipine. Please watch your blood pressure twice daily at home and call your doctor if it is persistently greater than 160/90. Follow up with your PCP within 1-2 weeks. Pending Studies at Discharge: No Stand-Alone Forms: My [facility], Smoking Cessation Medications and DC Order Prescriptions: New amoxicillin-pot clavulanate [Augmentin] 875-125 mg Tablet 1 tab PO BIDM Qty: 14 RF: 0 amlodipine [Norvasc] 5 mg Tablet 5 mg PO BID Qty: 60 RF: 0 sodium chloride [Saline Mist] 0.65 % Aerosol,Norris 2 spray NA QID Qty: 15 RF: 0 enoxaparin [Lovenox] 80 mg/0.8 mL syringe 80 mg subcut Q12H Qty: 8 RF: 0 Continued carvedilol 25 mg tablet 25 mg PO BID RF: 0 atorvastatin 20 mg tablet 20 mg PO DAILY RF: 0 isosorbide mononitrate 30 mg tablet extended release 24 hr 30 mg PO DAILY RF: 0 prednisone 1 mg tablet 1 mg PO TID RF: 0 Januvia 50 mg tablet 50 mg PO DAILY RF: 0 potassium chloride 20 mEq tablet,ER particles/crystals 20 meq PO DAILY RF: 0 pantoprazole 40 mg tablet,delayed release (DR/EC) 40 mg PO DAILY RF: 0 B12 Active 1,000 mcg Tablet,Chewable 1,000 mcg PO DAILY RF: 0 Discontinued doxycycline hyclate 100 mg tablet 100 mg PO DAILY RF: 0 Eliquis 5 mg tablet 5 mg PO BID RF: 0 Discharge Orders: Discharge Order (Routine); Ordered 02/23/21 Ordered By: Katie Soares/Other Patient Handouts: A1C, Managing Type 2 Diabetes Admission Data Admit Date/Time: 02/20/21 10:26 Attending Provider: Katie Clinton Admit Provider: Yousif Dickinson Primary Care Provider: Toni Madera Other Providers: Yousif Dickinson ; Ricardo Resendiz ; Rafael Anand ; Nawaf Ahmadi ; Armani Simpson ; Rangel Jennings ; Ish Brennan ; Donald Mei Coding Level of Care Code D/C DAY MANAGEMENT >30 MINS Diagnoses Hypertensive emergency I16.1 Epistaxis R04.0 Elevated troponin R79.89 Microcytic anemia D50.9 Pulmonary emboli I26.99 DM II (diabetes mellitus, type II), controlled E11.9 Pneumonia J18.9 Acute kidney injury N17.9 CKD (chronic kidney disease), stage III N18.30 DVT (deep venous thrombosis) I82.409 IPMN (intraductal papillary mucinous neoplasm) D49.0
--- NOTE | 2021-03-05 14:32 | Coding Query ---
CODING QUERY To promote full compliance with coding requirements relating to patient care, provider participation is requested in all cases of parquet floor layer uncertainty. Please assist us with the question(s) below: Coding Question(s): Patient admitted for htn urgency.. Pneumonia treated in recent prior outside Hospital stay. Please check below the phrase that describes the Pneumonia. Note: Antibtioticss continued during this hospitalization; CXR negative on Discharge. Thanks for your help. Frank Dai [employer] [facility] Physician's Response(s): ___x____ Pneumonia was Present on Admission Pneumonia was not Present on Admission Cannot Clinically Correlate if Pneumonia was POA Other: Please Document: Principal Diagnosis: "that condition established after study, to be chiefly responsible for occasioning the admission of the patient to the hospital for care." Co-Existing Principal Diagnosis: "when two or more diagnoses equally meet the criteria for principal diagnosis as determined by the circumstances of admission, diagnostic work up, and/or therapy provided, and the Alphabetic Index, Tabular List, or another coding guideline does not provide sequencing direction, any one of the diagnoses may be sequenced first." "When the physician has documented what appears to be a current diagnosis in the body of the record, but has not included the diagnosis in the final diagnostic statement, the physician should be asked whether the diagnosis should be added." (Source Coding [facility] 2 QTR90. p3-4) SOHAM
== END 2021-02-23 17:07 | disposition home health service (06) | DRG 304 ==
LOC: ED 05:56 → SUATTDRO 10:26 → 1E 10:26 → 2S 02-21 10:45

== ENCOUNTER 2021-05-11 14:17 | Inpatient (IN) ==
[2021-05-11 15:34] LABS: Hematocrit (blood only) 35.3 % (42-52); Hemoglobin 11.1 g/dL (14.0-18.0); Immature Granulocytes # (auto) 0.04 K/uL (0.00-0.02); Immature Granulocytes % (auto) 0.7 %; Lymphocytes # (auto) 0.77 K/uL (1.2-3.4); Lymphocytes % (auto) 12.6 %; Mean Corpuscular Hemoglobin 22.4 pg (25-34); Mean Corpuscular Hgb Conc 31.4 g/dL (32-36); Mean Corpuscular Volume 71.2 fL (80-100); Mean Platelet Volume 10.5 fL (7.4-10.4); Monocytes # (auto) 0.22 K/uL (0.11-0.59); Monocytes % (auto) 3.6 %; Neutrophils # (auto) 5.08 K/uL (1.4-6.5); Neutrophils % (auto) 83.1 %; Platelet Count 136 K/uL (130-400); RDW Standard Deviation 41.5 fL (36.4-46.3); Red Blood Count 4.96 M/uL (4.7-6.1); White Blood Count 6.11 K/uL (4.8-10.8)
[2021-05-11 15:51] LABS: Albumin Level 3.2 gm/dl (3.4-5.0); BUN Creatinine Ratio 13.9 (10-20); Calcium 9.4 mg/dl (8.5-10.1); Creatinine Clr Calc Pharmacy 28.1 ml/min; Est GFR (African American) 33.4 ml/min; Est GFR (Non-African American) 28.9 ml/min; Potassium 5.1 mmol/L (3.5-5.1)
[2021-05-11 16:01] LABS: Bilirubin,Total 0.7 mg/dl (0.2-1); Globulin 3.3 gm/dl (2.5-4.0); Thyroid Stimulating Hormone 0.294 uIu/ml (0.300-4.500); Total Protein 6.5 gm/dl (6.4-8.2); Troponin I 0.045 ng/ml (0-0.045)
[2021-05-11 16:28] LABS: Appearance Urine Clear (Clear); Bacteria Urine Automated Negative (Negative); Bilirubin Urine Negative (Negative); Blood Urine Trace (Negative); Color Urine Yellow; Epithelial Cell Urine Auto 0-5 /lpf (0-5); Glucose Urine UA Negative (Negative); Ketones Urine Negative (Negative); Leukocyte Esterase Urine Negative (Negative); Nitrite Urine Negative (Negative); Protein Urine 1+ (Negative); Specific Gravity Urine 1.015 (1.000-1.030); Urobilinogen Urine Negative (Negative)
--- NOTE | 2021-05-11 16:42 | XRay Report ---
XR chest 1V portable HISTORY: 80 years-old Male weakness acute weakness COMPARISON: Chest radiograph 02/21/2021 TECHNIQUE: Portable upright AP view of the chest FINDINGS: Cardiac silhouette is mildly enlarged, unchanged. No pneumothorax, pleural effusion, airspace consoli dation or overt pulmonary edema. Degenerative changes of the shoulders and spine. IMPRESSION: No acute process. ACT 112: Negative or not required by law. The above report was generated using voice recognition software. It may contain grammatical, syntax o r spelling errors. Electronically signed by: Scott Keating M.D. 05/11/2021 4:41 PM
[2021-05-11] MEDS ORDERED: hydrALAZINE HCL 20 MG/ML VIAL IV STA ×3 (17:14→19:16)
[2021-05-11 19:10] LABS: T4 Free Thyroxine 1.09 ng/dl (0.8-1.6)
--- NOTE | 2021-05-11 19:18 | CT Scan Report ---
CT head/brain wo con CLINICAL HISTORY: 80 years-old Male with HTN , dizzy, amb dysfunction. Acute weakness with hypertens ion TECHNIQUE: Multiple axial CT images of the head were obtained without contrast. A dose lowering tech nique was utilized adhering to the principles of ALARA. CT DOSE: 614.27 mGy.cm COMPARISON: None. FINDINGS: No acute intracranial hemorrhage, midline shift, intracranial mass, hydrocephalus, territorial ischem ia or abnormal extra-axial collection. Mild involutional changes. Cerebral vascular calcifications. M ild white matter hypodensities are suggestive of chronic microvascular ischemic disease. Cerebral vas cular calcifications. The calvarium is intact. Postoperative changes suggestive of partial right mastoidectomy. Mastoid ai r cells are generally clear. Minimal mucosal thickening of the ethmoid sinuses. Unremarkable soft tis sues. Prior bilateral lens repair. Surgical clips of the right lateral face. IMPRESSION: No acute intracranial abnormality. ACT 112: Negative or not required by law. The above report was generated using voice recognition software. It may contain grammatical, syntax o r spelling errors. Electronically signed by: Scott Keating M.D. 05/11/2021 7:17 PM
--- NOTE | 2021-05-11 20:27 | History & Physical Report ---
Date of Service May 11, 2021 Assessment & Plan (1) Weakness: Plan: 80 y/o male w/ PMR on chronic steroids, colon/prostate CA in remission, CAD, and hx of HTN urgency who presents for generalized wkness and HTN urgency. Patient is stable. Generalized wkness (w/o muscle weakness); considered failure to thrive, deconditoning, malignancy, adrenal insufficiency, infection. Hx of anemia, but not currently anemic. Hx not consistent w/ polypharmacy. - deferred blood cultures and procalc as no fever, leukocytosis, or other source - monitor on telemetry - hx of malignancy, check cxr plan: PT/OT. maintenance fluids. check random cortisol. may benefit from dietary consult give thin/frail habitus Present on Admission?: Yes (2) Hypertensive urgency: Plan: Patient has had hx of similar in past (01/2021 [facility] admission systolic >250, required ICU cardene drip) No new HTN-related symptoms Avoid use of IV hydralazine as patient has not been responsive to it during this and previous admission Prior records limited; source of HTN exacerbations/difficult control is unknown. Lower suspicion for neuroendocrine tumor; defer labs. Will check renal US and renal doppler to r/o DIEUDONNE. Patient may also have element of diabetic neuropathy. 02/20/21 echo w/ normal EF 65-70% and severe LVH (supports longstanding uncontrolled HTN). No abnl casts on UA At time of admission, gave half dose of home PO carvedilol and PO CCB. - goal BP <180 systolic - did not give Imdur tonight, will restart tomorrow. if systolic BP still elevated >200, could consider nitro paste Present on Admission?: Yes (3) DM II (diabetes mellitus, type II), controlled: Plan: 02/22/21 A1c 6.8, defer recheck continue home januvia As his BSGs are acceptable even while on prednisone taper, will defer SSI at this time. If BSG >200, consider adding. - Check BSG ACHS Present on Admission?: Yes (4) Acute kidney injury superimposed on chronic kidney disease: Plan: TOÑITO on CKD3 Cr 1.63 (02/23/21) -> 2.10 this admission May explain elevated K - check microalb, Fe/Na - renal US and renal venous doppler as part of HTN workup Present on Admission?: Yes (5) Chronic anticoagulation: Plan: for hx of DVT and bilat PE 01/2021 6 month course - continue home Eliquis 2.5 PO BID Present on Admission?: Yes (6) Chronic steroid use: Plan: continue home steroid taper ([id number], 30x3d, 20x3d, 10x3d), currently on 20x3 Present on Admission?: Yes (7) Polymyalgia rheumatica: Plan: chronic, stable. no msk complaints or msk wkness noted on exam hold home prednisone 3mg daily while on taper. Resume at discharge. Present on Admission?: Yes (8) CAD (coronary artery disease): Plan: - nonobstructive CAD per 2019 cardiac cath - trend trop. trop 0.045 at admission, slightly elevated; not undetectable - ecg w/o new ischemic changes: nonspecific st-t changes not new. repeat in AM - continue home statin Present on Admission?: Yes (9) Euthyroid sick syndrome: Plan: - consistent w/ labs. chills noted, but no thyroid replacement indicated given likely euthyroid sick syndrome. follow clinically. Present on Admission?: Yes Plan: FEN/GI: HH/DM2/low sodium. 100ml/hr LR x 2 bags. ppx: home Eliquis 2.5 BID code: conditional: yes CPR, no intubation dispo: med/surg tele History of Present Illness Chief Complaint: generalized weakness and elevated blood pressures Primary Care Provider: Toni Madera DO Rock Soto is an 80 y/o male w/ PMHx of DM2, CKD3, CAD prostate/colon CA in remission, IPMN, DVT/PE, and PMR who presents w/ generalized wkness/fatigue x 1 month and elevated BP of 236/11 at home (his normal is 145/80, though he does not check regularly). He took his AM meds (but not the nighttime antihypertensives). He saw pcp last week for the ongoing wkness/fatigue/c hills/hot flashes and was started on prednisone taper (40x3d, 30x3d, 20x3d, 10x3d), currently at 2nd day of the 20mg dose. The prednisone is not helping his symptoms. He had SBP to 250 during his last hospital admission here in January 2021 and required ICU admission for Cardene drip. Denies LIAO, cp. No new blurry vision (chronic s/p cataracts). Mild LADD not new. No abd pain, n/v. Denies confusion. Denies hx of thyroid disease. Denies unintentional wt wt loss. ED course: IV hydralazine x3 w/o improvement in BP. 210s systolic at time of my exam ~8PM. Notable home medications Eliquis 2.5 BID (decreased from 5 BID by PCP last week) Coreg 25 BID, felodipine ER 10 qhs, Imdur ER 30 daily Januvia 50 daily Allergies Allergy/AdvReac Type Severity Reaction Status Date / Time latex Allergy Intermediate Rash Unverified 05/11/21 16:57 Home Medications Medication Instructions Recorded Confirmed Type carvedilol 25 mg tablet 25 mg PO BID 06/24/19 05/11/21 History isosorbide mononitrate 30 mg 30 mg PO DAILY 06/24/19 05/11/21 History tablet,extended release 24 hr prednisone 1 mg tablet 1 mg PO TID 06/24/19 05/11/21 History sitagliptin 50 mg tablet (Januvia) 50 mg PO DAILY 06/24/19 05/11/21 History mecobalamin (vitamin B12) 1,000 1,000 mcg PO QAM 02/20/21 05/11/21 History mcg chewable tablet (B12 Active) pantoprazole 40 mg tablet,delayed 40 mg PO BID 02/20/21 05/11/21 History release potassium chloride 20 mEq 40 meq PO BID 02/20/21 05/11/21 History tablet,extended release(part/cryst) sodium chloride 0.65 % nasal spray 2 spray NA QID #15 ml 02/23/21 05/11/21 Rx aerosol (Saline Mist) atorvastatin 40 mg tablet 40 mg PO QAM 02/27/21 05/11/21 History famotidine 40 mg tablet 40 mg PO HS 02/27/21 05/11/21 History felodipine 10 mg tablet,extended 10 mg PO HS 02/27/21 05/11/21 History release 24 hr apixaban 2.5 mg tablet (Eliquis) 2.5 mg PO BID 05/11/21 05/11/21 History calcium carbonate 200 mg calcium 200 mg PO HS PRN 05/11/21 05/11/21 History (500 mg) chewable tablet (Tums) prednisone 10 mg tablet 10 mg PO UD 05/11/21 05/11/21 History Past Med/Surg History Medical History DVT (deep venous thrombosis) Hepatitis B History of pulmonary embolism HTN (hypertension) IPMN (intraductal papillary mucinous neoplasm) Polymyalgia rheumatica Weakness Surgical History Hx of cardiac cath Family History Other Family history non-contributory Social History Smoking Status: Never smoker Second Hand Exposure: No; Hx Alcohol Use: No Hx Substance Use: No Preferred Language: Brazilian Communication Ability: Effective Spectroscopist Required: No Beliefs That Will Affect Care: None Current Living Situation: Significant Other Current Living Situation Comment: girlfriend Other Information That Helps Us Care for You: No Feels Safe at Home: Yes Safety Concerns: Feels Safe At This Time Assistive Devices: Glasses Review of Systems Review of Systems: All systems reviewed & are unremarkable except as noted in HPI & below Constitutional: + mild chills since ED arrival. + generalized wkness and fatigue Eyes: Denies new blurry vision, vision changes. Has some chronic blurry vision ENT: Denies sore throat Cardiovascular: Denies chest pain Respiratory: Denies shortness of breath. +chronic mild dyspnea on exertion Gastrointestinal: Denies abdominal pain, nausea, vomiting, constipation, diarrhea. BMs regular. + mild indigestion that started after eating sandwich. Genitourinary: Denies new urinary symptoms including dysuria. Has 1+ yr hx of frequency. Musculoskeletal: Denies muscle aches/pain, joint aches/pain Neurological: Denies headache, numbness, tingling, focal weakness. Physical Exam Physical Exam: General: Grossly A&O. NAD. Cooperative. Frail/weak appearing. HEENT: Atraumatic, normocephalic. EOMI. PERRL. Neck is supple. No LAD. Pulm: CTAB. -wheezes, -rales, -rhonchi. No respiratory distress. Cardiac: RRR, -mrg. Radial pulses intact and symmetrical. cap refill <2sec. Trace RLE edema. No calf swelling/ttp. Abdominal: Nontender, soft. Obese abd which per patient is not new. Neuro: CN II-XII intact. Normal strength and sensation of extremities. Integ: Warm, dry, intact Results & Data Results & Data ([facility]) Vital Signs (Past 12 Hours) Vital Signs Temp Pulse Pulse Resp BP BP Pulse Ox 05/11/21 22:10 77 23 98 05/11/21 22:00 72 22 170/76 H 97 05/11/21 21:50 82 20 97 05/11/21 21:40 73 21 96 05/11/21 21:30 94 H 24 98 05/11/21 21:20 76 19 97 05/11/21 21:10 81 17 97 05/11/21 21:00 83 18 190/91 H 97 05/11/21 20:54 77 20 193/83 H 98 05/11/21 20:40 83 15 98 05/11/21 20:30 77 18 97 05/11/21 20:20 79 20 97 05/11/21 20:10 73 18 97 05/11/21 20:00 77 19 97 05/11/21 19:50 73 18 97 05/11/21 19:40 76 19 99 05/11/21 19:30 77 22 05/11/21 19:23 72 18 219/93 H 98 05/11/21 19:22 223/89 H 95 05/11/21 18:32 195/85 H 96 05/11/21 18:20 77 20 195/85 H 98 05/11/21 17:26 78 20 236/99 H 98 05/11/21 17:25 236/99 H 95 05/11/21 16:40 62 20 95 05/11/21 16:30 52 L 17 96 05/11/21 16:21 53 L 14 96 05/11/21 16:10 57 L 20 224/98 H 97 05/11/21 14:22 36.1 C L 61 16 212/95 H 97 Laboratory Results Hb 11.1, stable. No leukocytosis. Plts 200->136. K 3.5->5.1. Cr 1.63->2.1. trop 0.045 x1. liver enzymes neg. UA w/ 1+ protein, trace blood, 5-10 rbc. bsg 142. TSH 0.294L. fT4 1.09 wnl. fT3 2.06L 05/11/21 15:28 05/11/21 15:28 Diagnostic Findings Chest X-Ray 05/11/21 14:24 XR chest 1V portable HISTORY: 80 years-old Male weakness acute weakness COMPARISON: Chest radiograph 02/21/2021 TECHNIQUE: Portable upright AP view of the chest FINDINGS: Cardiac silhouette is mildly enlarged, unchanged. No pneumothorax, pleural effusion, airspace consolidation or overt pulmonary edema. Degenerative changes of the shoulders and spine. IMPRESSION: No acute process. ACT 112: Negative or not required by law. The above report was generated using voice recognition software. It may contain grammatical, syntax or spelling errors. Electronically signed by: Scott Keating M.D. 05/11/2021 4:[address] 05/11/21 17:11 CT head/brain wo con CLINICAL HISTORY: 80 years-old Male with HTN , dizzy, amb dysfunction. Acute weakness with hypertension TECHNIQUE: Multiple axial CT images of the head were obtained without contrast. A dose lowering technique was utilized adhering to the principles of ALARA. CT DOSE: 614.27 mGy.cm COMPARISON: None. FINDINGS: No acute intracranial hemorrhage, midline shift, intracranial mass, hydrocephalus, territorial ischemia or abnormal extra-axial collection. Mild involutional changes. Cerebral vascular calcifications. Mild white matter hypodensities are suggestive of chronic microvascular ischemic disease. Cerebral vascular calcifications. The calvarium is intact. Postoperative changes suggestive of partial right mastoidectomy. Mastoid air cells are generally clear. Minimal mucosal thickening of the ethmoid sinuses. Unremarkable soft tissues. Prior bilateral lens repair. Surgical clips of the right lateral face. IMPRESSION: No acute intracranial abnormality. ACT 112: Negative or not required by law. The above report was generated using voice recognition software. It may contain grammatical, syntax or spelling errors. Electronically signed by: Scott Keating M.D. 05/11/2021 7:17 PM Medications Administered hydralazine 10 mg IV x3 amlodipine 5 PO carvedilol 12.5 PO Code Status & VTE Plan Code Status conditional: Yes CPR, no intubation VTE Prophylaxis Plan VTE Prophylaxis will be ordered: Yes Supervising Physician Co-Signing Physician Notes Attending addendum: I have physically seen this patient, have supervised the medical residents activities, and agree with the H&P unless as otherwise noted. Assessment and Plan: Hypertensive urgency- Blood pressure did not respond to ED Rx of hydralazine 10 mg IV x3 Resume patient's usual medications of carvedilol and felodipine Increase isosorbide mononitrate If heart rate allows, Lopressor 5 mg IV every 4 hours as needed systolic blood pressure greater than 160 Check renal ultrasound and renal artery duplex This is at least the patient's second episode of volatile blood pressure, if recalcitrant, would consider work-up for secondary hypertension Diabetes mellitus- Hold Januvia- Placed on Accu-Cheks before meals and at bedtime with NovoLog coverage per scale Acute kidney injury on chronic kidney disease- Creatinine 2.10 upon admission, with most recent 1.63 Hydration with IV fluids Repeat laboratories in a.m. Remaining orders and notations as noted Resident Activity Tracking Resident Involvement: Resident Care Provided Care Provided: Adult Hospital Medicine
[2021-05-11] MEDS ORDERED: carvediloL 12.5 MG TAB PO STA (20:55)
[2021-05-11] MEDS ORDERED: amLODIPine BESYLATE 5 MG TAB PO STA (20:56)
[2021-05-11] MEDS ORDERED: APIXABAN 2.5 MG TAB PO STA (22:09)
--- NOTE | 2021-05-11 22:33 | XRay Report ---
XR chest 1V portable INDICATION: MN ^htn urgency, r/o infectious etiology for wkness. TECHNIQUE: Single frontal radiograph of the chest was obtained. Comparison: Comparison is made to chest one view 05/11/2021 FINDINGS: No lines and tubes are seen. The cardiomediastinal silhouette is stable. The lungs are clear. No evid ence of pleural effusion or pneumothorax. IMPRESSION: No acute abnormality and in particular no evidence of pneumonia. ACT 112: Negative or not required by law. Electronically signed by: Jack Alonso M.D. 05/11/2021 10:31 PM
[2021-05-12] MEDS ORDERED: ACETAMINOPHEN 325 MG TAB PO PRN (05:12)
[2021-05-12] MEDS ORDERED: LACTATED RINGER'S 1,000 ML IV SCH (05:12)
[2021-05-12] MEDS ORDERED: POLYETHYLENE (MIRALAX) 17 GM PACK PO PRN (05:12)
[2021-05-12] MEDS ORDERED: METOPROLOL TARTRATE 1 MG/ML VIAL IV STA (05:15)
[2021-05-12 06:16] LABS: Basophils # (auto) 0.01 K/uL (0-0.2); Basophils % (auto) 0.1 %; Eosinophils # (auto) 0.06 K/uL (0-0.5); Eosinophils % (auto) 0.9 %; Hematocrit (blood only) 36.2 % (42-52); Hemoglobin 11.5 g/dL (14.0-18.0); Immature Granulocytes # (auto) 0.04 K/uL (0.00-0.02); Immature Granulocytes % (auto) 0.6 %; Lymphocytes # (auto) 0.69 K/uL (1.2-3.4); Lymphocytes % (auto) 9.9 %; Mean Corpuscular Hemoglobin 22.2 pg (25-34); Mean Corpuscular Hgb Conc 31.8 g/dL (32-36); Mean Platelet Volume 10.2 fL (7.4-10.4); Monocytes % (auto) 15.8 %; Neutrophils # (auto) 5.07 K/uL (1.4-6.5); Neutrophils % (auto) 72.7 %; Platelet Count 117 K/uL (130-400); Red Blood Count 5.17 M/uL (4.7-6.1); White Blood Count 6.97 K/uL (4.8-10.8)
[2021-05-12] MEDS: ISOSORBIDE MONO EXTENDED REL 30 MG TABCR PO SCH (06:18)
[2021-05-12] MEDS: carvediloL 25 MG TAB PO SCH ×2 (06:18→21:13)
[2021-05-12 07:02] LABS: Albumin Level 3.1 gm/dl (3.4-5.0); BUN Creatinine Ratio 14.4 (10-20); Calcium 9.2 mg/dl (8.5-10.1); Creatinine Clr Calc Pharmacy 33.7 ml/min; Est GFR (African American) 41.7 ml/min; Globulin 3.1 gm/dl (2.5-4.0); Potassium 3.3 mmol/L (3.5-5.1); Total Protein 6.2 gm/dl (6.4-8.2)
[2021-05-12 07:21] LABS: Creatinine Urine Random 63.9 mg/dl
[2021-05-12] MEDS ORDERED: FELODIPINE 5 MG TABCR PO SCH ×4 (07:25→21:00)
[2021-05-12 08:41] LABS: Acanthocytes 1+; Microcytosis Present
[2021-05-12] MEDS ORDERED: ISOSORBIDE MONO EXTENDED REL 30 MG TABCR PO SCH ×2 (09:00)
[2021-05-12] MEDS ORDERED: amLODIPine BESYLATE 5 MG TAB PO SCH (09:00)
[2021-05-12] MEDS ORDERED: carvediloL 12.5 MG TAB PO SCH (09:00)
[2021-05-12] MEDS ORDERED: APIXABAN 2.5 MG TAB PO SCH (09:00)
[2021-05-12] MEDS: predniSONE 10 MG TABLET PO SCH (09:21)
[2021-05-12] MEDS: SITagliptin PHOSPHATE 25 MG TAB PO SCH (09:21)
[2021-05-12] MEDS: ATORVASTATIN 40 MG TAB PO SCH (09:21)
[2021-05-12] MEDS: PANTOprazole 40 MG TAB PO SCH ×2 (09:21→21:14)
[2021-05-12] MEDS: ALUMINUM/MAGNESIUM SUSP 30 ML UDC PO PRN (09:21)
--- NOTE | 2021-05-12 12:18 | Electrocardiogram Report ---
Test Reason : Blood Pressure : / mmHG Vent. Rate : 054 BPM Atrial Rate : 054 BPM P-R Int : 126 ms QRS Dur : 092 ms QT Int : 422 ms P-R-T Axes : 076 001 -27 degrees QTc Int : 400 ms Sinus bradycardia Nonspecific ST and T wave abnormality Abnormal ECG When compared with ECG of 20-FEB-2021 06:03, Inverted T waves have replaced nonspecific T wave abnormality in Lateral leads Confirmed by Ephraim Tenorio ([id number]) on 05/12/2021 12:18:13 PM Referred By: Confirmed By:Ephraim Tenorio
--- NOTE | 2021-05-12 12:40 | Electrocardiogram Report ---
Test Reason : Blood Pressure : / mmHG Vent. Rate : 061 BPM Atrial Rate : 061 BPM P-R Int : 118 ms QRS Dur : 082 ms QT Int : 408 ms P-R-T Axes : 070 -04 -78 degrees QTc Int : 410 ms Sinus rhythm with short [place] with Premature atrial complexes Abnormal ECG When compared with ECG of 11-MAY-2021 15:23, (unconfirmed) Premature atrial complexes are now Present Confirmed by Ephraim Tenorio ([id number]) on 05/12/2021 12:40:25 PM Referred By: REFERRED SELF Confirmed By:Ephraim Tenorio
[2021-05-12] MEDS ORDERED: ONDANSETRON INJ 2 MG/ML 2 ML VIAL IV PRN (13:05)
--- NOTE | 2021-05-12 13:19 | Hospitalist Progress Note ---
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 (2) Weakness: Plan: Suspect acute on chronic due to babesiosis. Consider neurology evaluation if Parkinson's still of concern after treatment for babesioses. PT/OT (3) Hypertensive urgency: Plan: Continuing his routine medications appears to have resolved his elevated blood pressure. US renal artery doppler normal Concerningly he is taking KCl 40 meq PO BID without any good explanation of pathology requiring this therefore will get aldosterone and renin concentration in AM to assess. Consider after test taken starting on spironolactone (although of note diuretics caused TOÑITO last admission). (4) Acute kidney injury superimposed on chronic kidney disease: Plan: Resolving overnight with IV fluids. Unclear baseline as Cr on discharge in January 1.63 but was as low as 1.18 during that admission (although suspect this was artificial with IV fluids given). Based on prior values in 2019 Down to 1.75 today. Will discontinue IV fluids. 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 (5) Elevated troponin: Plan: Suspect demand-ischemia. Consistent with prior values in January in same setting of hypertensive urgency. (6) Polymyalgia rheumatica: Plan: Will add ESR to next set of labs but given lack of pain suspect we can wean prednisone quicker than his PCP intended. Will consult HIM for last PCP outpatient note. (7) CAD (coronary artery disease): Plan: Non-obstructive single vessel disease on cardiac cath in 2019. Continue Eliquis, carvedilol, atorvastatin. (8) Pulmonary emboli: Plan: Diagnosed in January. Should be on Eliquis 5mg PO BID instead of 2.5mg. (9) DM II (diabetes mellitus, type II), controlled: Plan: HbA1C 6.8 in January. Continue sitagliptin 50mg PO daily T2DM diet Plan: VTE Prophylaxis - Eliquis Diet - T2DM, low Na, Heart healthy Disposition - continue inpatient stay on med/tele Admission and Anticipated Discharge Date Admission Date: May 12, 2021 Subjective Reports acute on chronic symptoms. Worse over the last month with chills, weakness, although main reason for acute admission was his elevated blood pressure that has been an issue in the past. Denies any chest pain, shortness of breath or dizziness. Unclear how long weakness has been going on as he initially tells me it has been getting progressively worse for a month but he also notes he wasn't his normal self 2 months ago. He has noticed a tremor which he describes is postural but on discussion with his partner (Cat) over the phone she has noticed it more as a resting tremor. His partner has also noted he sleeps a lot of the time. Wakes up around 6:30am and back in bed by 9:30am. He has a diagnosis of PMR which presumably is why he was recently on increased dose of steroids which have not helped, however he denies any shoulder pain but does report stiffness and that everything seems to be moving slower. His partner feels the generalized weakness has been going on for months but much worse in last month and balance difficulty is much more recent over the last month. Review of Systems Review of Systems: All systems reviewed & are unremarkable except as noted in HPI & below Physical Exam Constitutional: well developed; + not well nourished and no acute distress Eyes: PERRL, conjunctivae normal, anicteric sclerae ENMT: external ear and nose normal, oropharynx normal Neck: trachea midline, no thyromegaly Respiratory: normal respiratory effort, lungs clear to auscultation Cardiovascular: RRR, no murmur, no edema Gastrointestinal (Abdomen): normal bowel sounds, soft, nontender, no hepatosplenomegaly Musculoskeletal: no cyanosis or clubbing, extremities motor strength 5/5 Extremities: + abnormal muscle tone (intermittent cogwheel rigidity) Skin: no rashes, warm and dry Neurologic: moves all extremities and awake; no focal motor deficits (no lateralizing weakness) and not confused Speech / Cognition: normal speech Motor/Sensory: + tremor (postural); no pronator drift Cranial Nerves: PERRL and normal facial strength Psychiatric: Orientation: alert and oriented x 3 Affect: + flat affect Genitourinary: no CVA tenderness Results & Data Results & Data ([facility]) Vital Signs (Past 12 Hours) Vital Signs Temp Pulse Pulse Resp BP BP BP 05/12/21 11:31 37.3 C 60 18 143/64 H 05/12/21 08:00 36.8 C 62 18 123/72 05/12/21 06:20 67 200/79 H 05/12/21 05:32 36.9 C 72 20 211/87 H 05/12/21 04:52 73 18 194/63 H 05/12/21 04:10 05/12/21 04:00 05/12/21 03:50 05/12/21 03:47 05/12/21 03:30 05/12/21 03:20 05/12/21 03:10 05/12/21 03:00 67 17 05/12/21 02:50 72 17 05/12/21 02:40 68 17 05/12/21 02:30 70 18 05/12/21 02:20 69 17 05/12/21 02:10 83 23 05/12/21 02:00 72 18 05/12/21 01:50 75 19 05/12/21 01:40 91 H 23 05/12/21 01:30 95 H 20 05/12/21 01:20 68 18 Pulse Ox 05/12/21 11:31 98 05/12/21 08:00 96 05/12/21 06:20 05/12/21 05:32 97 05/12/21 04:52 96 05/12/21 04:10 97 05/12/21 04:00 98 05/12/21 03:50 98 05/12/21 03:47 97 05/12/21 03:30 97 05/12/21 03:20 97 05/12/21 03:10 96 05/12/21 03:00 95 05/12/21 02:50 94 05/12/21 02:40 95 05/12/21 02:30 96 05/12/21 02:20 96 05/12/21 02:10 05/12/21 02:00 95 05/12/21 01:50 97 05/12/21 01:40 05/12/21 01:30 05/12/21 01:20 99 PG Care Time/CCT Total # of Minutes Spent Total Time Spent with Patient: Total time spent is greater than 50% in coordination of care (as documented) at patient's floor/unit and/or counseling patient: Coding Level of Care Code 02731 Subseq Hosp Care Lvl 3 Diagnoses Babesiosis B60.00 Polymyalgia rheumatica M35.3 CAD (coronary artery disease) I25.10 Hypertensive urgency I16.0 Pulmonary emboli I26.99 DM II (diabetes mellitus, type II), controlled E11.9 Elevated troponin R77.8 Weakness R53.1 Acute kidney injury superimposed on chronic kidney disease N17.9; N18.9
[2021-05-12] MEDS: AZITHROMYCIN 500 MG in DEXTROSE 5% 250 ML IV SCH (13:59)
[2021-05-12] MEDS: ATOVAQUONE 750 MG/5 ML UDC PO SCH (15:28)
--- NOTE | 2021-05-12 15:41 | Ultrasound Report ---
DOPPLER ULTRASOUND OF THE RENAL ARTERIES CLINICAL HISTORY: Hypertensive urgency. COMPARISON STUDY: Abdominal CT dated 06/25/2019 TECHNIQUE: Doppler sonography of the renal arteries was performed to assess renal artery stenosis. Im ages are reviewed in the transverse and longitudinal planes. The Examination is degraded by patient's inability to breath-hold. FINDINGS: The kidneys appear are atrophic and without hydronephrosis. Right kidney measures 10.7 cm in length a nd the left kidney measures 10.2 cm in length. On the right, intrarenal arterial resistive indices measure 1.0. Intrarenal arterial waveforms are no rmal with brisk upstrokes. The right renal arterial waveform is normal, and velocities within the rig ht renal artery measure up to 62 cm/sec. The right renal vein is patent. On the left, intrarenal arterial resistive indices measure 1.0. Intrarenal arterial waveforms are no rmal with brisk upstrokes. The left renal arterial waveform is normal, and velocities within the left renal artery measure up to 60 cm/sec. The left renal vein is patent. The abdominal aorta is patent. Velocities within the abdominal aorta measure up to 81 cm/s. IMPRESSION: 1. There is no sonographic evidence of renal artery stenosis. 2. The kidneys are atrophic and without hydronephrosis. ACT 112: Negative or not required by law. Electronically signed by: Ricardo Weber M.D. 05/12/2021 3:40 PM
--- NOTE | 2021-05-12 15:43 | Ultrasound Report ---
ULTRASOUND KIDNEYS AND BLADDER CLINICAL HISTORY: Acute renal insufficiency. COMPARISON STUDY: Abdominal CT dated 06/25/2019. TECHNIQUE: Real-time, grayscale, and color flow sonography of the kidneys and bladder is performed. I mages are reviewed in the transverse and longitudinal planes. FINDINGS: Kidneys: The kidneys are atrophic. Echotexture is normal. The right kidney measures 10.7 x 6.7 x 6.6 cm and the left kidney measures 10.2 x 6.0 x 5.6 cm. There is no hydronephrosis. No shadowing renal calculi are identified. There are numerous bilateral renal cysts which measure up to 5.5 cm There is no sonographic evidence of solid renal mass lesion. No perinephric fluid is identified. Bladder: The bladder is decompressed and not well evaluated. Ureteral jets were not seen. IMPRESSION: 1. The kidneys are atrophic and without hydronephrosis. 2. The bladder was decompressed and not well evaluated. ACT 112: Negative or not required by law. Electronically signed by: Riacrdo Weber M.D. 05/12/2021 3:41 PM
--- NOTE | 2021-05-12 19:21 | Billing Data ---
Date of Service May 12, 2021 Coding Level of Care Code INT OBSERVATION CARE 70M LVL 3
[2021-05-12 20:21] LABS: Troponin I 0.173 ng/ml (0-0.045)
[2021-05-12 20:45] LABS: Lyme Ab IgG w/WB Rflx Negative (Negative); Lyme Ab IgM w/WB Rflx Negative (Negative)
[2021-05-12] MEDS: APIXABAN 5 MG TABLET PO SCH (21:13)
[2021-05-12] MEDS: POTASSIUM CHLORIDE CRTAB 20 MEQ TABCR PO SCH ×2 (21:13→21:46)
[2021-05-12] MEDS: FELODIPINE 5 MG TABCR PO SCH (21:14)
[2021-05-12] MEDS: FAMOTIDINE 20 MG TAB PO SCH (21:14)
[2021-05-13] MEDS: ATOVAQUONE 750 MG/5 ML UDC PO SCH ×2 (02:29→14:00)
[2021-05-13 03:31] LABS: Hematocrit (blood only) 34.4 % (42-52); Hemoglobin 11.1 g/dL (14.0-18.0); Mean Corpuscular Hemoglobin 22.6 pg (25-34); Mean Corpuscular Hgb Conc 32.3 g/dL (32-36); Mean Corpuscular Volume 69.9 fL (80-100); RDW Coefficient of Variation 15.9 % (11.5-14.5); RDW Standard Deviation 40.2 fL (36.4-46.3); Red Blood Count 4.92 M/uL (4.7-6.1); White Blood Count 7.76 K/uL (4.8-10.8)
[2021-05-13 03:50] LABS: Acanthocytes 1+; Basophils # (auto) 0.01 K/uL (0-0.2); Basophils % (auto) 0.1 %; Eosinophils # (auto) 0.06 K/uL (0-0.5); Eosinophils % (auto) 0.8 %; Immature Granulocytes # (auto) 0.04 K/uL (0.00-0.02); Immature Granulocytes % (auto) 0.5 %; Lymphocytes # (auto) 0.74 K/uL (1.2-3.4); Lymphocytes % (auto) 9.5 %; Mean Platelet Volume 10.3 fL (7.4-10.4); Microcytosis Present; Monocytes # (auto) 1.03 K/uL (0.11-0.59); Monocytes % (auto) 13.3 %; Neutrophils # (auto) 5.88 K/uL (1.4-6.5); Neutrophils % (auto) 75.8 %; Ovalocytes 1+; Platelet Count 95 K/uL (130-400); Platelet Estimate Decreased (Normal)
[2021-05-13 03:56] LABS: Albumin Globulin Ratio 0.8 (0.9-2); Albumin Level 2.8 gm/dl (3.4-5.0); BUN Creatinine Ratio 16.4 (10-20); Bilirubin,Total 0.7 mg/dl (0.2-1); Calcium 8.6 mg/dl (8.5-10.1); Creatinine Clr Calc Pharmacy 25.4 ml/min; Est GFR (African American) 29.7 ml/min; Est GFR (Non-African American) 25.6 ml/min; Globulin 3.3 gm/dl (2.5-4.0); Potassium 3.8 mmol/L (3.5-5.1); Total Protein 6.1 gm/dl (6.4-8.2); Troponin I 0.146 ng/ml (0-0.045)
[2021-05-13] MEDS: predniSONE 10 MG TABLET PO SCH (08:13)
[2021-05-13] MEDS: SITagliptin PHOSPHATE 25 MG TAB PO SCH (08:13)
[2021-05-13] MEDS: PANTOprazole 40 MG TAB PO SCH ×2 (08:13→20:16)
[2021-05-13] MEDS: carvediloL 25 MG TAB PO SCH ×2 (08:13→20:13)
[2021-05-13] MEDS: POTASSIUM CHLORIDE CRTAB 20 MEQ TABCR PO SCH ×2 (08:13→20:16)
[2021-05-13] MEDS: APIXABAN 5 MG TABLET PO SCH ×2 (08:13→20:13)
[2021-05-13] MEDS: ATORVASTATIN 40 MG TAB PO SCH (08:14)
[2021-05-13] MEDS: ISOSORBIDE MONO EXTENDED REL 30 MG TABCR PO SCH (08:14)
--- NOTE | 2021-05-13 08:42 | Hospitalist Progress Note ---
Date of Service May 13, 2021 Assessment & Plan (1) Babesiosis: Plan: Day #2 azithromycin 500mg IV and atovaquone 750mg PO BID Lyme IgG AB and IgM AB- He has neurological signs and symptoms concerning for Parkinson's in addition and recommend if he still has these following treatment for anaplasmosis then neurological evaluation would be warranted as an outpatient. (2) Weakness: Plan: Suspect acute on chronic due to babesiosis. Consider neurology evaluation if Parkinson's still of concern after treatment for babesioses. Continue PT/OT * Recommend inpatient physical therapy on discharge (3) Hypertensive urgency: Plan: Continuing his routine medications appears to have resolved his elevated blood pressure. US renal artery doppler normal Concerningly he is taking KCl 40 meq PO BID without any good explanation of pathology requiring this aldosterone and renin concentration levels pending (4) Acute kidney injury superimposed on chronic kidney disease: Plan: Unclear baseline as Cr on discharge in January 1.63 but was as low as 1.18 during that admission (although suspect this was artificial with IV fluids given). Based on prior values in 2019 Continue to trend creatinine Down to 1.75 today. Will discontinue IV fluids. 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 (5) Elevated troponin: Plan: Suspect demand-ischemia. Consistent with prior values in January in same setting of hypertensive urgency. (6) Polymyalgia rheumatica: Plan: ESR is 15 HIM consulted for last PCP outpatient note. (7) CAD (coronary artery disease): Plan: Non-obstructive single vessel disease on cardiac cath in 2019. Continue Eliquis, carvedilol, atorvastatin. Elevated troponin with no significant EKG changes. Troponin is trending downward No chest pain (8) Pulmonary emboli: Plan: Diagnosed in January. Was on two-point milligrams p.o. twice daily at home Therapeutic though should be Eliquis 5mg PO BID Discharge on 5 mg p.o. twice daily (9) DM II (diabetes mellitus, type II), controlled: Plan: HbA1C 6.8 in January. Continue sitagliptin 50mg PO daily T2DM diet Plan: VTE Prophylaxis - Eliquis Diet - T2DM, low Na, Heart healthy Disposition - continue inpatient stay on med/tele Admission and Anticipated Discharge Date Admission Date: May 12, 2021 Supervising Physician Co-Signing Physician Notes Patient seen, chart reviewed, case discussed with Ricardo Resendiz PA-C and I agree with the assessment and plan as above Subjective Attending: Dr. Beavers Patient seen and examined at bedside. He is in bedside chair. He continues to have weakness. He denies any chest pain. No fever or chills. No acute complaints. Review of Systems Review of Systems: All systems reviewed & are unremarkable except as noted in Subjective Physical Exam Physical Exam: GENERAL : No acute distress. Pleasant EYES: No icterus, gaze conjugate NOSE: No evidence of epistaxis MOUTH: No lesions or candidiasis NECK: Supple LUNGS: Some fine crackles at the bilateral bases. No bronchospasm or rhonchi appreciated HEART: Regular, rate controlled ABDOMEN: Soft, NT, ND, BS Present EXTREMITIES: No LE edema, pedal pulses intact NEURO: A&OX3 Results & Data Results & Data ([facility]) Vital Signs (Past 12 Hours) Vital Signs Temp Pulse Pulse Resp BP Pulse Ox 05/13/21 07:45 37.2 C 62 18 149/76 H 92 05/13/21 02:47 36.8 C 60 18 122/70 96 05/13/21 01:00 64 05/12/21 22:46 70 05/12/21 22:23 36.7 C 61 18 125/70 95 Laboratory Results 05/13/21 03:06 05/13/21 03:06 05/11/21 05/12/21 05/12/21 15:28 06:01 10:59 Troponin I 0.045 0.159 H* 0.220 H* 05/12/21 05/13/21 19:42 03:06 Troponin I 0.173 H* 0.146 H* Diagnostic Findings No further diagnostics PG Care Time/CCT Total # of Minutes Spent Total Time Spent with Patient: Total time spent is greater than 50% in coordination of care (as documented) at patient's floor/unit and/or counseling patient:25 minutes Coding Level of Care Code 76394 Subseq Hosp Care Lvl 2 Diagnoses Babesiosis B60.00 Weakness R53.1 Hypertensive urgency I16.0 Acute kidney injury superimposed on chronic kidney disease N17.9; N18.9 Elevated troponin R77.8 Polymyalgia rheumatica M35.3 CAD (coronary artery disease) I25.10 Pulmonary emboli I26.99 DM II (diabetes mellitus, type II), controlled E11.9 Time Spent (min) 25
[2021-05-13] MEDS: AZITHROMYCIN 500 MG in DEXTROSE 5% 250 ML IV SCH (14:00)
[2021-05-13] MEDS: FAMOTIDINE 20 MG TAB PO SCH (20:14)
[2021-05-13] MEDS: FELODIPINE 5 MG TABCR PO SCH (20:15)
[2021-05-13] MEDS: NORMOSOL-R 1,000 ML IV SCH (20:27)
[2021-05-14] MEDS: ATOVAQUONE 750 MG/5 ML UDC PO SCH ×2 (01:26→13:44)
[2021-05-14 06:32] LABS: Hematocrit (blood only) 33.1 % (42-52); Hemoglobin 10.5 g/dL (14.0-18.0); Mean Corpuscular Hemoglobin 22.2 pg (25-34); Mean Corpuscular Hgb Conc 31.7 g/dL (32-36); Mean Corpuscular Volume 70.1 fL (80-100); RDW Standard Deviation 40.7 fL (36.4-46.3); Red Blood Count 4.72 M/uL (4.7-6.1); White Blood Count 7.02 K/uL (4.8-10.8)
[2021-05-14 06:35] LABS: Mean Platelet Volume 10.9 fL (7.4-10.4); Platelet Count 96 K/uL (130-400)
[2021-05-14 07:06] LABS: BUN Creatinine Ratio 19.1 (10-20); Calcium 8.6 mg/dl (8.5-10.1); Creatinine Clr Calc Pharmacy 24.7 ml/min; Est GFR (African American) 28.6 ml/min; Est GFR (Non-African American) 24.7 ml/min; Potassium 3.6 mmol/L (3.5-5.1)
[2021-05-14] MEDS: PANTOprazole 40 MG TAB PO SCH ×2 (10:27→20:05)
[2021-05-14] MEDS: SITagliptin PHOSPHATE 25 MG TAB PO SCH (10:27)
[2021-05-14] MEDS: POTASSIUM CHLORIDE CRTAB 20 MEQ TABCR PO SCH ×2 (10:27→20:06)
[2021-05-14] MEDS: predniSONE 10 MG TABLET PO SCH (10:28)
[2021-05-14] MEDS: ATORVASTATIN 40 MG TAB PO SCH (10:28)
[2021-05-14] MEDS: APIXABAN 5 MG TABLET PO SCH ×2 (10:31→11:43)
[2021-05-14] MEDS: ISOSORBIDE MONO EXTENDED REL 30 MG TABCR PO SCH (10:31)
[2021-05-14] MEDS: carvediloL 25 MG TAB PO SCH ×2 (10:33→20:05)
[2021-05-14] MEDS: NORMOSOL-R 1,000 ML IV SCH ×2 (10:36→19:31)
[2021-05-14] MEDS: AZITHROMYCIN 500 MG in DEXTROSE 5% 250 ML IV SCH (13:43)
[2021-05-14 14:11] LABS: Babesia microti DNA Detected (Not Detected)
--- NOTE | 2021-05-14 17:08 | Hospitalist Progress Note ---
Date of Service May 14, 2021 Assessment & Plan (1) Babesiosis: Plan: Continue azithromycin 500mg IV and atovaquone 750mg PO BID Lyme IgG AB and IgM AB- He has neurological signs and symptoms concerning for Parkinson's in addition and recommend if he still has these following treatment for anaplasmosis then neurological evaluation would be warranted as an outpatient. (2) Weakness: Plan: Suspect acute on chronic due to babesiosis. Consider neurology evaluation if Parkinson's still of concern after treatment for babesioses. Continue PT/OT * Recommend inpatient physical therapy on discharge (3) Hypertensive urgency: Plan: Continuing his routine medications appears to have resolved his elevated blood pressure. US renal artery doppler normal Concerningly he is taking KCl 40 meq PO BID without any good explanation of pathology requiring this aldosterone and renin concentration levels pending (4) Acute kidney injury superimposed on chronic kidney disease: Plan: -Unclear baseline as Cr on discharge in January 1.63 but was as low as 1.18 during that admission (although suspect this was artificial with IV fluids given). -Based on prior values in 2019 -Continue to trend creatinine -Down to 1.75 today. Will discontinue IV fluids. 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 (5) Elevated troponin: Plan: -Suspect demand-ischemia. -Consistent with prior values in January in same setting of hypertensive urgency. (6) Polymyalgia rheumatica: Plan: -ESR is 15 -HIM consulted for last PCP outpatient note. (7) CAD (coronary artery disease): Plan: -Non-obstructive single vessel disease on cardiac cath in 2019. -Continue Eliquis, carvedilol, atorvastatin. -Elevated troponin with no significant EKG changes. -Troponin downtrended -No chest pain (8) Pulmonary emboli: Plan: Diagnosed in 01/2021 Pt aware that Eliquis 5mg BID dose is recommended for PE, 2.5mg BID dosing is dose reduction approved for Afib but not FDA approved/recommended for PEs. Pt has had 2 episodes of epistaxis requiring hospitalization and age >80 with impared renal function. Has had risk/benefits discussion as outpatient, and revisited risk/benefit discussion at time of admission. On shared decisionmaking will continue 2.5mg BID dosing of Eliquis. Pt understands this is not the recommended dose for PEs and may be sub-therapeutic, but feels that benefit outweighs risk given past history and recurrent bleeding. Will continue 2.5mg BID dosing (9) DM II (diabetes mellitus, type II), controlled: Plan: HbA1C 6.8 in January. Continue sitagliptin 50mg PO daily T2DM diet Plan: VTE Prophylaxis - Eliquis Diet - T2DM, low Na, Heart healthy Disposition - continue inpatient stay on med/tele Admission and Anticipated Discharge Date Admission Date: May 13, 2021 Subjective Doing well. No fevers today. energy improved. Somewhat fatigued, but overall 'better.' Discussed blood thinners at length. Pt aware that Eliquis 5mg BID dose is recommended for PE, 2.5mg BID dosing is dose reduction approved for Afib but not FDA approved/recommended for PEs. Pt has had 2 episodes of epistaxis requiring hospitalization and age >80 with impared renal function. Has had risk/benefits discussion as outpatient, and revisited risk/benefit discussion at time of admission. ON shared decisionmaking will continue 2.5mg BID dosing of Eliquis. Pt understands this is not the recommended dose for PEs and may be sub- therapeutic, but that benefit outweights risk given past history and recurrent bleeding. No addition questions/concerns at time of visit. Review of Systems Review of Systems: All systems reviewed & are unremarkable except as noted in Subjective Physical Exam Physical Exam: General: A&Ox3. NAD. Cooperative. HEENT: Atraumatic, normocephalic. Pulm: CTAB A&P. -wheezes, -rales, -rhonchi. Symmetrical chest rise. No increase work of breathing. No respiratory distress. Cardiac: RRR, -mrg. Radial pulses intact and symmetrical. Abdominal: Nontender, nondistended, soft. BS present. Results & Data Results & Data ([facility]) Vital Signs (Past 12 Hours) Vital Signs Temp Pulse Pulse Resp BP BP Pulse Ox 05/14/21 15:42 36.9 C 60 18 116/65 97 05/14/21 14:20 62 05/14/21 11:26 36.6 C 59 L 20 125/67 97 05/14/21 10:30 63 122/74 05/14/21 07:30 37.0 C 60 20 161/62 H 96 05/14/21 06:20 66 PG Care Time/CCT Total # of Minutes Spent Total Time Spent with Patient: Total time spent is greater than 50% in coordination of care (as documented) at patient's floor/unit and/or counseling patient: Coding Level of Care Code 20659 Subseq Hosp Care Lvl 3 Diagnoses Babesiosis B60.00 Weakness R53.1 Hypertensive urgency I16.0 Acute kidney injury superimposed on chronic kidney disease N17.9; N18.9 Elevated troponin R77.8 Polymyalgia rheumatica M35.3 CAD (coronary artery disease) I25.10 Pulmonary emboli I26.99 DM II (diabetes mellitus, type II), controlled E11.9
[2021-05-14] MEDS: ALUMINUM/MAGNESIUM SUSP 30 ML UDC PO PRN (19:36)
[2021-05-14] MEDS: FELODIPINE 5 MG TABCR PO SCH (20:06)
[2021-05-14] MEDS: APIXABAN 2.5 MG TAB PO SCH (20:06)
[2021-05-14] MEDS: FAMOTIDINE 20 MG TAB PO SCH (20:06)
[2021-05-15] MEDS: NORMOSOL-R 1,000 ML IV SCH (01:39)
[2021-05-15] MEDS: ATOVAQUONE 750 MG/5 ML UDC PO SCH ×2 (01:39→13:06)
[2021-05-15 07:11] LABS: Mean Corpuscular Hgb Conc 31.9 g/dL (32-36)
[2021-05-15 07:25] LABS: BUN Creatinine Ratio 22.4 (10-20); Calcium 7.7 mg/dl (8.5-10.1); Creatinine Clr Calc Pharmacy 31.8 ml/min; Est GFR (Non-African American) 33.6 ml/min; Potassium 3.8 mmol/L (3.5-5.1)
[2021-05-15 07:50] LABS: Hematocrit (blood only) 31.3 % (42-52); Mean Corpuscular Hemoglobin 22.1 pg (25-34); Mean Corpuscular Volume 69.2 fL (80-100); RDW Standard Deviation 39.9 fL (36.4-46.3); Red Blood Count 4.52 M/uL (4.7-6.1)
[2021-05-15 08:12] LABS: Platelet Count 101 K/uL (130-400); Platelet Estimate Decreased (Normal)
[2021-05-15] MEDS: POTASSIUM CHLORIDE CRTAB 20 MEQ TABCR PO SCH (09:19)
[2021-05-15] MEDS: SITagliptin PHOSPHATE 25 MG TAB PO SCH (09:19)
[2021-05-15] MEDS: ATORVASTATIN 40 MG TAB PO SCH (09:19)
[2021-05-15] MEDS: carvediloL 25 MG TAB PO SCH (09:19)
[2021-05-15] MEDS: predniSONE 10 MG TABLET PO SCH (09:19)
[2021-05-15] MEDS: ISOSORBIDE MONO EXTENDED REL 30 MG TABCR PO SCH (09:19)
[2021-05-15] MEDS: APIXABAN 2.5 MG TAB PO SCH (09:20)
[2021-05-15] MEDS: PANTOprazole 40 MG TAB PO SCH (10:40)
--- NOTE | 2021-05-15 10:46 | Hospitalist Progress Note ---
Date of Service May 15, 2021 Assessment & Plan (1) Babesiosis: Plan: Continue azithromycin 500mg IV and atovaquone 750mg PO BID Lyme IgG AB and IgM AB- He has neurological signs and symptoms concerning for Parkinson's in addition and recommend if he still has these following treatment for anaplasmosis then neurological evaluation would be warranted as an outpatient. (2) Weakness: Plan: Suspect acute on chronic due to babesiosis. Consider neurology evaluation if Parkinson's still of concern after treatment for babesioses. Continue PT/OT * Recommend inpatient physical therapy on discharge (3) Hypertensive urgency: Plan: Continuing his routine medications appears to have resolved his elevated blood pressure. US renal artery doppler normal Concerningly he is taking KCl 40 meq PO BID without any good explanation of pathology requiring this aldosterone and renin concentration levels pending (4) Acute kidney injury superimposed on chronic kidney disease: Plan: -Unclear baseline as Cr on discharge in January 1.63 but was as low as 1.18 during that admission (although suspect this was artificial with IV fluids given). -Based on prior values in 2019 -Continue to trend creatinine -Down to 1.75 today. Will discontinue IV fluids. 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 (5) Elevated troponin: Plan: -Suspect demand-ischemia. -Consistent with prior values in January in same setting of hypertensive urgency. (6) Polymyalgia rheumatica: Plan: -ESR is 15 -HIM consulted for last PCP outpatient note. (7) CAD (coronary artery disease): Plan: -Non-obstructive single vessel disease on cardiac cath in 2019. -Continue Eliquis, carvedilol, atorvastatin. -Elevated troponin with no significant EKG changes. -Troponin downtrended -No chest pain (8) Pulmonary emboli: Plan: Diagnosed in 01/2021 Pt aware that Eliquis 5mg BID dose is recommended for PE, 2.5mg BID dosing is dose reduction approved for Afib but not FDA approved/recommended for PEs. Pt has had 2 episodes of epistaxis requiring hospitalization and age >80 with impared renal function. Has had risk/benefits discussion as outpatient, and revisited risk/benefit discussion at time of admission. On shared decisionmaking will continue 2.5mg BID dosing of Eliquis. Pt understands this is not the recommended dose for PEs and may be sub-therapeutic, but feels that benefit outweighs risk given past history and recurrent bleeding. Will continue 2.5mg BID dosing (9) DM II (diabetes mellitus, type II), controlled: Plan: HbA1C 6.8 in January. Continue sitagliptin 50mg PO daily T2DM diet Plan: VTE Prophylaxis - Eliquis Diet - T2DM, low Na, Heart healthy Disposition - continue inpatient stay on med/tele Admission and Anticipated Discharge Date Admission Date: May 13, 2021 Results & Data Results & Data ([facility]) Vital Signs (Past 12 Hours) Vital Signs Temp Pulse Pulse Pulse Resp BP Pulse Ox 05/15/21 08:07 36.9 C 64 16 164/84 H 64 L 05/15/21 03:13 36.6 C 63 16 138/58 L 94 05/14/21 23:48 36.5 C 59 L 20 113/53 L 93 05/14/21 23:41 58 L PG Care Time/CCT Total # of Minutes Spent Total Time Spent with Patient: Total time spent is greater than 50% in coordination of care (as documented) at patient's floor/unit and/or counseling patient: Coding Diagnoses Babesiosis B60.00 Weakness R53.1 Hypertensive urgency I16.0 Acute kidney injury superimposed on chronic kidney disease N17.9; N18.9 Elevated troponin R77.8 Polymyalgia rheumatica M35.3 CAD (coronary artery disease) I25.10 Pulmonary emboli I26.99 DM II (diabetes mellitus, type II), controlled E11.9
[2021-05-15] MEDS: AZITHROMYCIN 500 MG in DEXTROSE 5% 250 ML IV SCH (13:02)
--- NOTE | 2021-05-15 18:10 | Emergency Department Note ---
Impression & Plan Hyperglycemia, Weakness, Hypertensive urgency ED Provider Note CHIEF COMPLAINT: Weakness, elevated blood sugar and blood pressure HISTORY OF PRESENT ILLNESS: This 80-year-old male patient presents to the emergency department with complaints of weakness, elevated blood sugar and blood pressure. Patient states he has a long history of hypertension and diabetes. He has been taking his medications as prescribed. He does not believe he has missed any doses. He is anticoagulated on Eliquis secondary to a history of pulmonary emboli. Patient denies any recent fevers, chills, chest pain or shortness of breath. He denies any recent falls or head injury. REVIEW OF SYSTEMS: A review of systems was performed with positives and pertinent negatives listed in the history of present illness. 10 systems were reviewed and are otherwise negative. ALLERGIES: see below MEDICATIONS: see below PMH: see below SOCIAL HISTORY: see below DDx: Infection, dehydration, metabolic abnormality, hypo/hyperglycemia, electrolyte disturbance, anemia, hypoxia, cardiac sources, intracerebral event, toxicologic, neurologic, as well as other pathologies. PHYSICAL EXAM: Vital signs reviewed. Noted to be markedly hypertensive. General: Well-appearing 80-year-old male, in no significant distress. HEENT: No scleral icterus, PERRLA, neck supple. Atraumatic. Cardiovascular: Regular rate and rhythm, no extra sounds. Pulmonary: Clear to auscultation bilaterally, normal work of breathing. Abdomen: Soft, nontender, nondistended, positive bowel sounds. Musculoskeletal: Atraumatic, no peripheral edema. Neurologic: Patient awake alert and oriented x 3, speech is clear. Skin: Warm, dry, no rash EMERGENCY DEPARTMENT COURSE/MDM: This patient was evaluated and appeared to be in no significant distress. IV access was obtained and laboratory work was drawn. Patient is noted to be markedly hypertensive and was given IV hydralazine x2 without much improvement. Patient's glucose is noted to be mildly elevated but under reasonable control at 142. Troponin is detectable but less than 0.04. MONITORING: An order for cardiac monitoring was placed and the patient is noted to be in a sinus bradycardia at 53 beats per minute. RADIOLOGY: see below. EKG: Sinus bradycardia at [address] and T wave abnormality. No PVC, no PAC. 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 Beliefs That Will Affect Care: None Current Living Situation: Significant Other Current Living Situation Comment: girlfriend Feels Safe at Home: Yes Assistive Devices: Walker Allergies Allergies Allergy/AdvReac Type Severity Reaction Status Date / Time latex Allergy Intermediate Rash Unverified 05/11/21 16:57 Home Meds Home Medications Medication Instructions Recorded Confirmed carvedilol 25 mg tablet 25 mg PO BID 06/24/19 05/11/21 isosorbide mononitrate 30 mg 30 mg PO DAILY 06/24/19 05/11/21 tablet,extended release 24 hr prednisone 1 mg tablet 1 mg PO TID 06/24/19 05/11/21 sitagliptin 50 mg tablet (Januvia) 50 mg PO DAILY 06/24/19 05/11/21 mecobalamin (vitamin B12) 1,000 1,000 mcg PO QAM 02/20/21 05/11/21 mcg chewable tablet (B12 Active) pantoprazole 40 mg tablet,delayed 40 mg PO BID 02/20/21 05/11/21 release atorvastatin 40 mg tablet 40 mg PO QAM 02/27/21 05/11/21 famotidine 40 mg tablet 40 mg PO HS 02/27/21 05/11/21 felodipine 10 mg tablet,extended 10 mg PO HS 02/27/21 05/11/21 release 24 hr apixaban 2.5 mg tablet (Eliquis) 2.5 mg PO BID 05/11/21 05/11/21 calcium carbonate 200 mg calcium 200 mg PO HS PRN 05/11/21 05/11/21 (500 mg) chewable tablet (Tums) prednisone 10 mg tablet 10 mg PO UD 05/11/21 05/11/21 Previous Rx's Medication Instructions Recorded sodium chloride 0.65 % nasal spray 2 spray NA QID #15 ml 02/23/21 aerosol (Saline Mist) atovaquone 750 mg/5 mL oral 750 mg PO Q12H #210 ml 05/15/21 suspension (Mepron) azithromycin 500 mg tablet 500 mg PO DAILY 8 Days #8 tab 05/15/21 potassium chloride 20 mEq 20 meq PO BID #30 tab 05/15/21 tablet,extended release(part/cryst) Results & Data (ED) Home Medications Current Medication List: was personally reviewed by fl Laboratory Data Attestation: I reviewed the patient's lab results. Result diagrams: 05/15/21 06:14 05/15/21 06:14 Lab Results 05/11/21 05/11/21 05/11/21 Range/Units 15:28 15:28 16:09 WBC 6.11 (4.8-10.8) K/uL RBC 4.96 (4.7-6.1) M/uL Hgb 11.1 L (14.0-18.0) g/dL Hct 35.3 L (42-52) % MCV 71.2 L (80-100) fL MCH 22.4 L (25-34) pg MCHC 31.4 L (32-36) g/dL RDW Std Deviation 41.5 (36.4-46.3) fL RDW Coeff of Derek 16.0 H (11.5-14.5) % Plt Count 136 (130-400) K/uL MPV 10.5 H (7.4-10.4) fL Immature Gran % (Auto) 0.7 % Neut % (Auto) 83.1 % Lymph % (Auto) 12.6 % Wheeler % (Auto) 3.6 % Eos % (Auto) 0.0 % Baso % (Auto) 0.0 % Neut # (Auto) 5.08 (1.4-6.5) K/uL Lymph # (Auto) 0.77 L (1.2-3.4) K/uL Wheeler # (Auto) 0.22 (0.11-0.59) K/uL Eos # (Auto) 0.00 (0-0.5) K/uL Baso # (Auto) 0.00 (0-0.2) K/uL Immature Gran # (Auto) 0.04 H (0.00-0.02) K/uL Platelet Estimate (Normal) Microcytosis Ovalocytes Acanthocytes (Spur) Peripher Smr Path Cons ESR (0-20) mm/hr Sodium 139 (136-145) mmol/L Potassium 5.1 (3.5-5.1) mmol/L Chloride 107 (98-107) mmol/L Carbon Dioxide 30 (21-32) mmol/L Anion Gap 2.0 L (3-11) BUN 29 H (7-18) mg/dl Creatinine 2.10 H (0.6-1.4) mg/dl Est Cr Clr Drug Dosing 28.1 ml/min Est GFR ( Amer) 33.4 ml/min Est GFR (Non-Af Amer) 28.9 ml/min BUN/Creatinine Ratio 13.9 (10-20) Glucose 142 H (70-99) mg/dl POC Glucose (70-99) mg/dl Calcium 9.4 (8.5-10.1) mg/dl Total Bilirubin 0.7 (0.2-1) mg/dl AST 11 L (15-37) U/L ALT 30 (12-78) U/L Alkaline Phosphatase 77 (45-117) U/L Total Creatine Kinase (39-308) U/L Troponin I 0.045 (0-0.045) ng/ml Total Protein 6.5 (6.4-8.2) gm/dl Albumin 3.2 L (3.4-5.0) gm/dl Globulin 3.3 (2.5-4.0) gm/dl Albumin/Globulin Ratio 1.0 (0.9-2) TSH 0.294 L (0.300-4.500) uIu/ml Free T4 1.09 (0.8-1.6) ng/dl Free T3 (2.3-4.2) pg/ml Urine Color Yellow Urine Appearance Clear (Clear) Urine pH 5.0 (4.5-7.5) Ur Specific [place] 1.015 (1.000-1.030) Urine Protein 1+ H (Negative) Urine Glucose (UA) Negative (Negative) Urine Ketones Negative (Negative) Urine Blood Trace H (Negative) Urine Nitrite Negative (Negative) Urine Bilirubin Negative (Negative) Urine Urobilinogen Negative (Negative) Ur Leukocyte Esterase Negative (Negative) Urine WBC (Auto) 1-5 (0-5) /hpf Urine RBC (Auto) 5-10 H (0-4) /hpf U Hyaline Cast (Auto) 1-5 (0-5) /lpf U Epithel Cells (Auto) 0-5 (0-5) /lpf Urine Bacteria (Auto) Negative (Negative) Ur Random Creatinine mg/dl Ur Random Microalbumin mg/L Ur Random Sodium mmol/L A. phagocytophilum DNA (Negative) Babesia Smear Babesia microti DNA PCR (Not Detected) Lyme Disease IgG Ab (Negative) Lyme Disease IgM Ab (Negative) COVID-19 Eval Order SARS-CoV-2 (PCR) (Negative) 05/11/21 05/11/21 05/11/21 Range/Units 19:09 20:55 20:55 WBC (4.8-10.8) K/uL RBC (4.7-6.1) M/uL Hgb (14.0-18.0) g/dL Hct (42-52) % MCV (80-100) fL MCH (25-34) pg MCHC (32-36) g/dL RDW Std Deviation (36.4-46.3) fL RDW Coeff of Derek (11.5-14.5) % Plt Count (130-400) K/uL MPV (7.4-10.4) fL Immature Gran % (Auto) % Neut % (Auto) % Lymph % (Auto) % Wheeler % (Auto) % Eos % (Auto) % Baso % (Auto) % Neut # (Auto) (1.4-6.5) K/uL Lymph # (Auto) (1.2-3.4) K/uL Wheeler # (Auto) (0.11-0.59) K/uL Eos # (Auto) (0-0.5) K/uL Baso # (Auto) (0-0.2) K/uL Immature Gran # (Auto) (0.00-0.02) K/uL Platelet Estimate (Normal) Microcytosis Ovalocytes Acanthocytes (Spur) Peripher Smr Path Cons ESR (0-20) mm/hr Sodium (136-145) mmol/L Potassium (3.5-5.1) mmol/L Chloride (98-107) mmol/L Carbon Dioxide (21-32) mmol/L Anion Gap (3-11) BUN (7-18) mg/dl Creatinine (0.6-1.4) mg/dl Est Cr Clr Drug Dosing ml/min Est GFR ( Amer) ml/min Est GFR (Non-Af Amer) ml/min BUN/Creatinine Ratio (10-20) Glucose (70-99) mg/dl POC Glucose (70-99) mg/dl Calcium (8.5-10.1) mg/dl Total Bilirubin (0.2-1) mg/dl AST (15-37) U/L ALT (12-78) U/L Alkaline Phosphatase (45-117) U/L Total Creatine Kinase (39-308) U/L Troponin I (0-0.045) ng/ml Total Protein (6.4-8.2) gm/dl Albumin (3.4-5.0) gm/dl Globulin (2.5-4.0) gm/dl Albumin/Globulin Ratio (0.9-2) TSH (0.300-4.500) uIu/ml Free T4 (0.8-1.6) ng/dl Free T3 2.06 L (2.3-4.2) pg/ml Urine Color Urine Appearance (Clear) Urine pH (4.5-7.5) Ur Specific [place] (1.000-1.030) Urine Protein (Negative) Urine Glucose (UA) (Negative) Urine Ketones (Negative) Urine Blood (Negative) Urine Nitrite (Negative) Urine Bilirubin (Negative) Urine Urobilinogen (Negative) Ur Leukocyte Esterase (Negative) Urine WBC (Auto) (0-5) /hpf Urine RBC (Auto) (0-4) /hpf U Hyaline Cast (Auto) (0-5) /lpf U Epithel Cells (Auto) (0-5) /lpf Urine Bacteria (Auto) (Negative) Ur Random Creatinine mg/dl Ur Random Microalbumin mg/L Ur Random Sodium mmol/L A. phagocytophilum DNA (Negative) Babesia Smear Babesia microti DNA PCR (Not Detected) Lyme Disease IgG Ab (Negative) Lyme Disease IgM Ab (Negative) COVID-19 Eval Order Covid19 at [facility] SARS-CoV-2 (PCR) NEGATIVE (Negative) 05/12/21 05/12/21 05/12/21 Range/Units 06:01 06:01 06:01 WBC 6.97 (4.8-10.8) K/uL RBC 5.17 (4.7-6.1) M/uL Hgb 11.5 L (14.0-18.0) g/dL Hct 36.2 L (42-52) % MCV 70.0 L (80-100) fL MCH 22.2 L (25-34) pg MCHC 31.8 L (32-36) g/dL RDW Std Deviation 40.0 (36.4-46.3) fL RDW Coeff of Derek 16.0 H (11.5-14.5) % Plt Count 117 L (130-400) K/uL MPV 10.2 (7.4-10.4) fL Immature Gran % (Auto) 0.6 % Neut % (Auto) 72.7 % Lymph % (Auto) 9.9 % Wheeler % (Auto) 15.8 % Eos % (Auto) 0.9 % Baso % (Auto) 0.1 % Neut # (Auto) 5.07 (1.4-6.5) K/uL Lymph # (Auto) 0.69 L (1.2-3.4) K/uL Wheeler # (Auto) 1.10 H (0.11-0.59) K/uL Eos # (Auto) 0.06 (0-0.5) K/uL Baso # (Auto) 0.01 (0-0.2) K/uL Immature Gran # (Auto) 0.04 H (0.00-0.02) K/uL Platelet Estimate (Normal) Microcytosis Present Ovalocytes Acanthocytes (Spur) 1+ Peripher Smr Path Cons ESR (0-20) mm/hr Sodium 143 (136-145) mmol/L Potassium 3.3 L D (3.5-5.1) mmol/L Chloride 105 (98-107) mmol/L Carbon Dioxide 32 (21-32) mmol/L Anion Gap 6.0 (3-11) BUN 25 H (7-18) mg/dl Creatinine 1.75 H D (0.6-1.4) mg/dl Est Cr Clr Drug Dosing 33.7 ml/min Est GFR ( Amer) 41.7 ml/min Est GFR (Non-Af Amer) 36.0 ml/min BUN/Creatinine Ratio 14.4 (10-20) Glucose 93 (70-99) mg/dl POC Glucose (70-99) mg/dl Calcium 9.2 (8.5-10.1) mg/dl Total Bilirubin 1.0 (0.2-1) mg/dl AST 10 L (15-37) U/L ALT 25 (12-78) U/L Alkaline Phosphatase 70 (45-117) U/L Total Creatine Kinase (39-308) U/L Troponin I 0.159 H* (0-0.045) ng/ml Total Protein 6.2 L (6.4-8.2) gm/dl Albumin 3.1 L (3.4-5.0) gm/dl Globulin 3.1 (2.5-4.0) gm/dl Albumin/Globulin Ratio 1.0 (0.9-2) TSH (0.300-4.500) uIu/ml Free T4 (0.8-1.6) ng/dl Free T3 (2.3-4.2) pg/ml Urine Color Urine Appearance (Clear) Urine pH (4.5-7.5) Ur Specific [place] (1.000-1.030) Urine Protein (Negative) Urine Glucose (UA) (Negative) Urine Ketones (Negative) Urine Blood (Negative) Urine Nitrite (Negative) Urine Bilirubin (Negative) Urine Urobilinogen (Negative) Ur Leukocyte Esterase (Negative) Urine WBC (Auto) (0-5) /hpf Urine RBC (Auto) (0-4) /hpf U Hyaline Cast (Auto) (0-5) /lpf U Epithel Cells (Auto) (0-5) /lpf Urine Bacteria (Auto) (Negative) Ur Random Creatinine mg/dl Ur Random Microalbumin mg/L Ur Random Sodium mmol/L A. phagocytophilum DNA (Negative) Babesia Smear See Comment A Babesia microti DNA PCR (Not Detected) Lyme Disease IgG Ab (Negative) Lyme Disease IgM Ab (Negative) COVID-19 Eval Order SARS-CoV-2 (PCR) (Negative) 05/12/21 05/12/21 05/12/21 Range/Units 06:01 06:30 10:59 WBC (4.8-10.8) K/uL RBC (4.7-6.1) M/uL Hgb (14.0-18.0) g/dL Hct (42-52) % MCV (80-100) fL MCH (25-34) pg MCHC (32-36) g/dL RDW Std Deviation (36.4-46.3) fL RDW Coeff of Derek (11.5-14.5) % Plt Count (130-400) K/uL MPV (7.4-10.4) fL Immature Gran % (Auto) % Neut % (Auto) % Lymph % (Auto) % Wheeler % (Auto) % Eos % (Auto) % Baso % (Auto) % Neut # (Auto) (1.4-6.5) K/uL Lymph # (Auto) (1.2-3.4) K/uL Wheeler # (Auto) (0.11-0.59) K/uL Eos # (Auto) (0-0.5) K/uL Baso # (Auto) (0-0.2) K/uL Immature Gran # (Auto) (0.00-0.02) K/uL Platelet Estimate (Normal) Microcytosis Ovalocytes Acanthocytes (Spur) Peripher Smr Path Cons ESR (0-20) mm/hr Sodium (136-145) mmol/L Potassium (3.5-5.1) mmol/L Chloride (98-107) mmol/L Carbon Dioxide (21-32) mmol/L Anion Gap (3-11) BUN (7-18) mg/dl Creatinine (0.6-1.4) mg/dl Est Cr Clr Drug Dosing ml/min Est GFR ( Amer) ml/min Est GFR (Non-Af Amer) ml/min BUN/Creatinine Ratio (10-20) Glucose (70-99) mg/dl POC Glucose (70-99) mg/dl Calcium (8.5-10.1) mg/dl Total Bilirubin (0.2-1) mg/dl AST (15-37) U/L ALT (12-78) U/L Alkaline Phosphatase (45-117) U/L Total Creatine Kinase (39-308) U/L Troponin I 0.220 H* (0-0.045) ng/ml Total Protein (6.4-8.2) gm/dl Albumin (3.4-5.0) gm/dl Globulin (2.5-4.0) gm/dl Albumin/Globulin Ratio (0.9-2) TSH (0.300-4.500) uIu/ml Free T4 (0.8-1.6) ng/dl Free T3 (2.3-4.2) pg/ml Urine Color Urine Appearance (Clear) Urine pH (4.5-7.5) Ur Specific [place] (1.000-1.030) Urine Protein (Negative) Urine Glucose (UA) (Negative) Urine Ketones (Negative) Urine Blood (Negative) Urine Nitrite (Negative) Urine Bilirubin (Negative) Urine Urobilinogen (Negative) Ur Leukocyte Esterase (Negative) Urine WBC (Auto) (0-5) /hpf Urine RBC (Auto) (0-4) /hpf U Hyaline Cast (Auto) (0-5) /lpf U Epithel Cells (Auto) (0-5) /lpf Urine Bacteria (Auto) (Negative) Ur Random Creatinine 63.9 mg/dl Ur Random Microalbumin 584.0 mg/L Ur Random Sodium 135 mmol/L A. phagocytophilum DNA (Negative) Babesia Smear Babesia microti DNA PCR Detected A (Not Detected) Lyme Disease IgG Ab (Negative) Lyme Disease IgM Ab (Negative) COVID-19 Eval Order SARS-CoV-2 (PCR) (Negative) 05/12/21 05/12/21 05/12/21 Range/Units 11:45 19:42 19:42 WBC (4.8-10.8) K/uL RBC (4.7-6.1) M/uL Hgb (14.0-18.0) g/dL Hct (42-52) % MCV (80-100) fL MCH (25-34) pg MCHC (32-36) g/dL RDW Std Deviation (36.4-46.3) fL RDW Coeff of Derek (11.5-14.5) % Plt Count (130-400) K/uL MPV (7.4-10.4) fL Immature Gran % (Auto) % Neut % (Auto) % Lymph % (Auto) % Wheeler % (Auto) % Eos % (Auto) % Baso % (Auto) % Neut # (Auto) (1.4-6.5) K/uL Lymph # (Auto) (1.2-3.4) K/uL Wheeler # (Auto) (0.11-0.59) K/uL Eos # (Auto) (0-0.5) K/uL Baso # (Auto) (0-0.2) K/uL Immature Gran # (Auto) (0.00-0.02) K/uL Platelet Estimate (Normal) Microcytosis Ovalocytes Acanthocytes (Spur) Peripher Smr Path Cons ESR 15 (0-20) mm/hr Sodium (136-145) mmol/L Potassium (3.5-5.1) mmol/L Chloride (98-107) mmol/L Carbon Dioxide (21-32) mmol/L Anion Gap (3-11) BUN (7-18) mg/dl Creatinine (0.6-1.4) mg/dl Est Cr Clr Drug Dosing ml/min Est GFR ( Amer) ml/min Est GFR (Non-Af Amer) ml/min BUN/Creatinine Ratio (10-20) Glucose (70-99) mg/dl POC Glucose 133 H (70-99) mg/dl Calcium (8.5-10.1) mg/dl Total Bilirubin (0.2-1) mg/dl AST (15-37) U/L ALT (12-78) U/L Alkaline Phosphatase (45-117) U/L Total Creatine Kinase 52 (39-308) U/L Troponin I 0.173 H* (0-0.045) ng/ml Total Protein (6.4-8.2) gm/dl Albumin (3.4-5.0) gm/dl Globulin (2.5-4.0) gm/dl Albumin/Globulin Ratio (0.9-2) TSH (0.300-4.500) uIu/ml Free T4 (0.8-1.6) ng/dl Free T3 (2.3-4.2) pg/ml Urine Color Urine Appearance (Clear) Urine pH (4.5-7.5) Ur Specific [place] (1.000-1.030) Urine Protein (Negative) Urine Glucose (UA) (Negative) Urine Ketones (Negative) Urine Blood (Negative) Urine Nitrite (Negative) Urine Bilirubin (Negative) Urine Urobilinogen (Negative) Ur Leukocyte Esterase (Negative) Urine WBC (Auto) (0-5) /hpf Urine RBC (Auto) (0-4) /hpf U Hyaline Cast (Auto) (0-5) /lpf U Epithel Cells (Auto) (0-5) /lpf Urine Bacteria (Auto) (Negative) Ur Random Creatinine mg/dl Ur Random Microalbumin mg/L Ur Random Sodium mmol/L A. phagocytophilum DNA (Negative) Babesia Smear Babesia microti DNA PCR (Not Detected) Lyme Disease IgG Ab (Negative) Lyme Disease IgM Ab (Negative) COVID-19 Eval Order SARS-CoV-2 (PCR) (Negative) 05/12/21 05/12/21 05/12/21 Range/Units 19:42 19:42 19:56 WBC (4.8-10.8) K/uL RBC (4.7-6.1) M/uL Hgb (14.0-18.0) g/dL Hct (42-52) % MCV (80-100) fL MCH (25-34) pg MCHC (32-36) g/dL RDW Std Deviation (36.4-46.3) fL RDW Coeff of Derek (11.5-14.5) % Plt Count (130-400) K/uL MPV (7.4-10.4) fL Immature Gran % (Auto) % Neut % (Auto) % Lymph % (Auto) % Wheeler % (Auto) % Eos % (Auto) % Baso % (Auto) % Neut # (Auto) (1.4-6.5) K/uL Lymph # (Auto) (1.2-3.4) K/uL Wheeler # (Auto) (0.11-0.59) K/uL Eos # (Auto) (0-0.5) K/uL Baso # (Auto) (0-0.2) K/uL Immature Gran # (Auto) (0.00-0.02) K/uL Platelet Estimate (Normal) Microcytosis Ovalocytes Acanthocytes (Spur) Peripher Smr Path Cons ESR (0-20) mm/hr Sodium (136-145) mmol/L Potassium (3.5-5.1) mmol/L Chloride (98-107) mmol/L Carbon Dioxide (21-32) mmol/L Anion Gap (3-11) BUN (7-18) mg/dl Creatinine (0.6-1.4) mg/dl Est Cr Clr Drug Dosing ml/min Est GFR ( Amer) ml/min Est GFR (Non-Af Amer) ml/min BUN/Creatinine Ratio (10-20) Glucose (70-99) mg/dl POC Glucose 171 H (70-99) mg/dl Calcium (8.5-10.1) mg/dl Total Bilirubin (0.2-1) mg/dl AST (15-37) U/L ALT (12-78) U/L Alkaline Phosphatase (45-117) U/L Total Creatine Kinase (39-308) U/L Troponin I (0-0.045) ng/ml Total Protein (6.4-8.2) gm/dl Albumin (3.4-5.0) gm/dl Globulin (2.5-4.0) gm/dl Albumin/Globulin Ratio (0.9-2) TSH (0.300-4.500) uIu/ml Free T4 (0.8-1.6) ng/dl Free T3 (2.3-4.2) pg/ml Urine Color Urine Appearance (Clear) Urine pH (4.5-7.5) Ur Specific [place] (1.000-1.030) Urine Protein (Negative) Urine Glucose (UA) (Negative) Urine Ketones (Negative) Urine Blood (Negative) Urine Nitrite (Negative) Urine Bilirubin (Negative) Urine Urobilinogen (Negative) Ur Leukocyte Esterase (Negative) Urine WBC (Auto) (0-5) /hpf Urine RBC (Auto) (0-4) /hpf U Hyaline Cast (Auto) (0-5) /lpf U Epithel Cells (Auto) (0-5) /lpf Urine Bacteria (Auto) (Negative) Ur Random Creatinine mg/dl Ur Random Microalbumin mg/L Ur Random Sodium mmol/L A. phagocytophilum DNA Negative (Negative) Babesia Smear Babesia microti DNA PCR (Not Detected) Lyme Disease IgG Ab Negative (Negative) Lyme Disease IgM Ab Negative (Negative) COVID-19 Eval Order SARS-CoV-2 (PCR) (Negative) 05/13/21 05/13/21 05/13/21 Range/Units 03:06 03:06 07:34 WBC 7.76 (4.8-10.8) K/uL RBC 4.92 (4.7-6.1) M/uL Hgb 11.1 L (14.0-18.0) g/dL Hct 34.4 L (42-52) % MCV 69.9 L (80-100) fL MCH 22.6 L (25-34) pg MCHC 32.3 (32-36) g/dL RDW Std Deviation 40.2 (36.4-46.3) fL RDW Coeff of Derek 15.9 H (11.5-14.5) % Plt Count 95 L (130-400) K/uL MPV 10.3 (7.4-10.4) fL Immature Gran % (Auto) 0.5 % Neut % (Auto) 75.8 % Lymph % (Auto) 9.5 % Wheeler % (Auto) 13.3 % Eos % (Auto) 0.8 % Baso % (Auto) 0.1 % Neut # (Auto) 5.88 (1.4-6.5) K/uL Lymph # (Auto) 0.74 L (1.2-3.4) K/uL Wheeler # (Auto) 1.03 H (0.11-0.59) K/uL Eos # (Auto) 0.06 (0-0.5) K/uL Baso # (Auto) 0.01 (0-0.2) K/uL Immature Gran # (Auto) 0.04 H (0.00-0.02) K/uL Platelet Estimate Decreased L (Normal) Microcytosis Present Ovalocytes 1+ Acanthocytes (Spur) 1+ Peripher Smr Path Cons ESR (0-20) mm/hr Sodium 139 (136-145) mmol/L Potassium 3.8 D (3.5-5.1) mmol/L Chloride 105 (98-107) mmol/L Carbon Dioxide 29 (21-32) mmol/L Anion Gap 5.0 (3-11) BUN 38 H D (7-18) mg/dl Creatinine 2.32 H D (0.6-1.4) mg/dl Est Cr Clr Drug Dosing 25.4 ml/min Est GFR ( Amer) 29.7 ml/min Est GFR (Non-Af Amer) 25.6 ml/min BUN/Creatinine Ratio 16.4 (10-20) Glucose 130 H (70-99) mg/dl POC Glucose 121 H (70-99) mg/dl Calcium 8.6 (8.5-10.1) mg/dl Total Bilirubin 0.7 (0.2-1) mg/dl AST 12 L (15-37) U/L ALT 25 (12-78) U/L Alkaline Phosphatase 72 (45-117) U/L Total Creatine Kinase (39-308) U/L Troponin I 0.146 H* (0-0.045) ng/ml Total Protein 6.1 L (6.4-8.2) gm/dl Albumin 2.8 L (3.4-5.0) gm/dl Globulin 3.3 (2.5-4.0) gm/dl Albumin/Globulin Ratio 0.8 L (0.9-2) TSH (0.300-4.500) uIu/ml Free T4 (0.8-1.6) ng/dl Free T3 (2.3-4.2) pg/ml Urine Color Urine Appearance (Clear) Urine pH (4.5-7.5) Ur Specific [place] (1.000-1.030) Urine Protein (Negative) Urine Glucose (UA) (Negative) Urine Ketones (Negative) Urine Blood (Negative) Urine Nitrite (Negative) Urine Bilirubin (Negative) Urine Urobilinogen (Negative) Ur Leukocyte Esterase (Negative) Urine WBC (Auto) (0-5) /hpf Urine RBC (Auto) (0-4) /hpf U Hyaline Cast (Auto) (0-5) /lpf U Epithel Cells (Auto) (0-5) /lpf Urine Bacteria (Auto) (Negative) Ur Random Creatinine mg/dl Ur Random Microalbumin mg/L Ur Random Sodium mmol/L A. phagocytophilum DNA (Negative) Babesia Smear Babesia microti DNA PCR (Not Detected) Lyme Disease IgG Ab (Negative) Lyme Disease IgM Ab (Negative) COVID-19 Eval Order SARS-CoV-2 (PCR) (Negative) 05/13/21 05/13/21 05/13/21 Range/Units 11:12 11:26 16:34 WBC (4.8-10.8) K/uL RBC (4.7-6.1) M/uL Hgb (14.0-18.0) g/dL Hct (42-52) % MCV (80-100) fL MCH (25-34) pg MCHC (32-36) g/dL RDW Std Deviation (36.4-46.3) fL RDW Coeff of Derek (11.5-14.5) % Plt Count (130-400) K/uL MPV (7.4-10.4) fL Immature Gran % (Auto) % Neut % (Auto) % Lymph % (Auto) % Wheeler % (Auto) % Eos % (Auto) % Baso % (Auto) % Neut # (Auto) (1.4-6.5) K/uL Lymph # (Auto) (1.2-3.4) K/uL Wheeler # (Auto) (0.11-0.59) K/uL Eos # (Auto) (0-0.5) K/uL Baso # (Auto) (0-0.2) K/uL Immature Gran # (Auto) (0.00-0.02) K/uL Platelet Estimate (Normal) Microcytosis Ovalocytes Acanthocytes (Spur) Peripher Smr Path Cons ESR (0-20) mm/hr Sodium (136-145) mmol/L Potassium (3.5-5.1) mmol/L Chloride (98-107) mmol/L Carbon Dioxide (21-32) mmol/L Anion Gap (3-11) BUN (7-18) mg/dl Creatinine (0.6-1.4) mg/dl Est Cr Clr Drug Dosing ml/min Est GFR ( Amer) ml/min Est GFR (Non-Af Amer) ml/min BUN/Creatinine Ratio (10-20) Glucose (70-99) mg/dl POC Glucose 148 H 175 H (70-99) mg/dl Calcium (8.5-10.1) mg/dl Total Bilirubin (0.2-1) mg/dl AST (15-37) U/L ALT (12-78) U/L Alkaline Phosphatase (45-117) U/L Total Creatine Kinase (39-308) U/L Troponin I 0.132 H* (0-0.045) ng/ml Total Protein (6.4-8.2) gm/dl Albumin (3.4-5.0) gm/dl Globulin (2.5-4.0) gm/dl Albumin/Globulin Ratio (0.9-2) TSH (0.300-4.500) uIu/ml Free T4 (0.8-1.6) ng/dl Free T3 (2.3-4.2) pg/ml Urine Color Urine Appearance (Clear) Urine pH (4.5-7.5) Ur Specific [place] (1.000-1.030) Urine Protein (Negative) Urine Glucose (UA) (Negative) Urine Ketones (Negative) Urine Blood (Negative) Urine Nitrite (Negative) Urine Bilirubin (Negative) Urine Urobilinogen (Negative) Ur Leukocyte Esterase (Negative) Urine WBC (Auto) (0-5) /hpf Urine RBC (Auto) (0-4) /hpf U Hyaline Cast (Auto) (0-5) /lpf U Epithel Cells (Auto) (0-5) /lpf Urine Bacteria (Auto) (Negative) Ur Random Creatinine mg/dl Ur Random Microalbumin mg/L Ur Random Sodium mmol/L A. phagocytophilum DNA (Negative) Babesia Smear Babesia microti DNA PCR (Not Detected) Lyme Disease IgG Ab (Negative) Lyme Disease IgM Ab (Negative) COVID-19 Eval Order SARS-CoV-2 (PCR) (Negative) 05/13/21 Range/Units 20:11 WBC (4.8-10.8) K/uL RBC (4.7-6.1) M/uL Hgb (14.0-18.0) g/dL Hct (42-52) % MCV (80-100) fL MCH (25-34) pg MCHC (32-36) g/dL RDW Std Deviation (36.4-46.3) fL RDW Coeff of Derek (11.5-14.5) % Plt Count (130-400) K/uL MPV (7.4-10.4) fL Immature Gran % (Auto) % Neut % (Auto) % Lymph % (Auto) % Wheeler % (Auto) % Eos % (Auto) % Baso % (Auto) % Neut # (Auto) (1.4-6.5) K/uL Lymph # (Auto) (1.2-3.4) K/uL [place] # (Auto) (0.11-0.59) K/uL Eos # (Auto) (0-0.5) K/uL Baso # (Auto) (0-0.2) K/uL Immature Gran # (Auto) (0.00-0.02) K/uL Platelet Estimate (Normal) Microcytosis Ovalocytes Acanthocytes (Spur) Peripher Smr Path Cons ESR (0-20) mm/hr Sodium (136-145) mmol/L Potassium (3.5-5.1) mmol/L Chloride (98-107) mmol/L Carbon Dioxide (21-32) mmol/L Anion Gap (3-11) BUN (7-18) mg/dl Creatinine (0.6-1.4) mg/dl Est Cr Clr Drug Dosing ml/min Est GFR ( Amer) ml/min Est GFR (Non-Af Amer) ml/min BUN/Creatinine Ratio (10-20) Glucose (70-99) mg/dl POC Glucose 192 H (70-99) mg/dl Calcium (8.5-10.1) mg/dl Total Bilirubin (0.2-1) mg/dl AST (15-37) U/L ALT (12-78) U/L Alkaline Phosphatase (45-117) U/L Total Creatine Kinase (39-308) U/L Troponin I (0-0.045) ng/ml Total Protein (6.4-8.2) gm/dl Albumin (3.4-5.0) gm/dl Globulin (2.5-4.0) gm/dl Albumin/Globulin Ratio (0.9-2) TSH (0.300-4.500) uIu/ml Free T4 (0.8-1.6) ng/dl Free T3 (2.3-4.2) pg/ml Urine Color Urine Appearance (Clear) Urine pH (4.5-7.5) Ur Specific [place] (1.000-1.030) Urine Protein (Negative) Urine Glucose (UA) (Negative) Urine Ketones (Negative) Urine Blood (Negative) Urine Nitrite (Negative) Urine Bilirubin (Negative) Urine Urobilinogen (Negative) Ur Leukocyte Esterase (Negative) Urine WBC (Auto) (0-5) /hpf Urine RBC (Auto) (0-4) /hpf U Hyaline Cast (Auto) (0-5) /lpf U Epithel Cells (Auto) (0-5) /lpf Urine Bacteria (Auto) (Negative) Ur Random Creatinine mg/dl Ur Random Microalbumin mg/L Ur Random Sodium mmol/L A. phagocytophilum DNA (Negative) Babesia Smear Babesia microti DNA PCR (Not Detected) Lyme Disease IgG Ab (Negative) Lyme Disease IgM Ab (Negative) COVID-19 Eval Order SARS-CoV-2 (PCR) (Negative) Administered Medications Discontinued Medications Al Hydrox/Mg Hydrox/Simethicone (Aluminum/Magnesium Susp 30 Ml Udc) 30 ml PO Q6H PRN PRN Reason: Dyspepsia Stop: 06/11/21 05:11 Last Admin: 05/14/21 19:36 Dose: 30 ml Documented by: [id number] Admin: 05/12/21 09:21 Dose: 30 ml Documented by: [id number] Amlodipine Besylate (Amlodipine Besylate 5 Mg Tab) 5 mg PO NOW STA Stop: 05/11/21 20:57 Last Admin: 05/11/21 21:23 Dose: 5 mg Documented by: [id number] Apixaban (Apixaban 2.5 Mg Tab) 2.5 mg PO ONE STA Stop: 05/11/21 22:10 Last Admin: 05/11/21 22:40 Dose: 2.5 mg Documented by: [id number] Apixaban (Apixaban 2.5 Mg Tab) 2.5 mg PO BID NAJMA Stop: 06/11/21 08:59 Last Admin: 05/12/21 09:21 Dose: 2.5 mg Documented by: [id number] Apixaban (Apixaban 5 Mg Tablet) 5 mg PO BID NAJMA Stop: 06/11/21 20:59 Last Admin: 05/14/21 11:43 Dose: Not Given Documented by: [id number] Admin: 05/13/21 20:13 Dose: 5 mg Documented by: [id number] Admin: 05/13/21 08:13 Dose: 5 mg Documented by: [id number] Admin: 05/12/21 21:13 Dose: 5 mg Documented by: [id number] Apixaban (Apixaban 2.5 Mg Tab) 2.5 mg PO BID NAJMA Stop: 06/13/21 20:59 Last Admin: 05/15/21 09:20 Dose: 2.5 mg Documented by: [id number] Admin: 05/14/21 20:06 Dose: 2.5 mg Documented by: [id number] Atorvastatin Calcium (Atorvastatin 40 Mg Tab) 40 mg PO QAM NAJMA Stop: 06/11/21 08:59 Last Admin: 05/15/21 09:19 Dose: 40 mg Documented by: [id number] Admin: 05/14/21 10:28 Dose: 40 mg Documented by: [id number] Admin: 05/13/21 08:14 Dose: 40 mg Documented by: [id number] Admin: 05/12/21 09:21 Dose: 40 mg Documented by: [id number] Atovaquone (Atovaquone 750 Mg/5 Ml Udc) 750 mg PO Q12H NAJMA Stop: 06/11/21 13:59 Last Admin: 05/15/21 13:06 Dose: 750 mg Documented by: [id number] Admin: 05/15/21 01:39 Dose: 750 mg Documented by: [id number] Admin: 05/14/21 13:44 Dose: 750 mg Documented by: [id number] Admin: 05/14/21 01:26 Dose: 750 mg Documented by: [id number] Admin: 05/13/21 14:00 Dose: 750 mg Documented by: [id number] Admin: 05/13/21 02:29 Dose: 750 mg Documented by: [id number] Admin: 05/12/21 15:28 Dose: 750 mg Documented by: [id number] Carvedilol (Carvedilol 12.5 Mg Tab) 12.5 mg PO NOW [facility] Stop: 05/11/21 20:56 Last Admin: 05/11/21 21:22 Dose: 12.5 mg Documented by: [id number] Carvedilol (Carvedilol 25 Mg Tab) 25 mg PO BID NAJMA Stop: 06/11/21 08:59 Last Admin: 05/15/21 09:19 Dose: 25 mg Documented by: [id number] Admin: 05/14/21 20:05 Dose: 25 mg Documented by: [id number] Admin: 05/14/21 10:33 Dose: 25 mg Documented by: [id number] Admin: 05/13/21 20:13 Dose: 25 mg Documented by: [id number] Admin: 05/13/21 08:13 Dose: 25 mg Documented by: [id number] Admin: 05/12/21 21:13 Dose: 25 mg Documented by: [id number] Admin: 05/12/21 06:18 Dose: 25 mg Documented by: [id number] Famotidine (Famotidine 20 Mg Tab) 20 mg PO HS NAJMA Stop: 06/11/21 20:59 Last Admin: 05/14/21 20:06 Dose: 20 mg Documented by: [id number] Admin: 05/13/21 20:14 Dose: 20 mg Documented by: [id number] Admin: 05/12/21 21:14 Dose: 20 mg Documented by: [id number] Felodipine (Felodipine 5 Mg Tabcr) 10 mg PO HS NAJMA Stop: 06/11/21 20:59 Last Admin: 05/14/21 20:06 Dose: 10 mg Documented by: [id number] Admin: 05/13/21 20:15 Dose: 10 mg Documented by: [id number] Admin: 05/12/21 21:14 Dose: 10 mg Documented by: [id number] Hydralazine HCl (Hydralazine Hcl 20 Mg/Ml Vial) 10 mg IV NOW STA Stop: 05/11/21 17:15 Last Admin: 05/11/21 17:24 Dose: 10 mg Documented by: [id number] Hydralazine HCl (Hydralazine Hcl 20 Mg/Ml Vial) 10 mg IV NOW STA Stop: 05/11/21 18:13 Last Admin: 05/11/21 18:30 Dose: 10 mg Documented by: [id number] Hydralazine HCl (Hydralazine Hcl 20 Mg/Ml Vial) 10 mg IV NOW STA Stop: 05/11/21 19:17 Last Admin: 05/11/21 19:32 Dose: 10 mg Documented by: [id number] Lactated Ringer's (Lr) 1,000 mls @ 100 mls/hr IV .Q10H NAJMA Stop: 05/13/21 01:11 Last Infusion: 05/12/21 08:12 Dose: 0 mls/hr Documented by: [id number] Admin: 05/12/21 05:58 Dose: 100 mls/hr Documented by: [id number] Azithromycin 500 mg/ Dextrose 255 mls @ 127.5 mls/hr IV Q24H NAJMA Stop: 05/19/21 13:59 Last Admin: 05/15/21 13:02 Dose: 127.5 mls/hr Documented by: [id number] Infusion: 05/14/21 16:18 Dose: 0 mls/hr Documented by: [id number] Admin: 05/14/21 13:43 Dose: 127.5 mls/hr Documented by: [id number] Infusion: 05/13/21 16:10 Dose: 0 mls/hr Documented by: [id number] Admin: 05/13/21 14:00 Dose: 128 mls/hr Documented by: [id number] Infusion: 05/12/21 17:26 Dose: 0 mls/hr Documented by: [id number] Infusion: 05/12/21 15:27 Dose: 128 mls/hr Documented by: [id number] Infusion: 05/12/21 14:03 Dose: 0 mls/hr Documented by: [id number] Admin: 05/12/21 13:59 Dose: 127.5 mls/hr Documented by: [id number] Parenteral Electrolytes (Normosol-R) 1,000 mls @ 100 mls/hr IV .Q10H NAJMA Stop: 06/12/21 20:14 Last Infusion: 05/15/21 11:45 Dose: 0 mls/hr Documented by: [id number] Admin: 05/15/21 01:39 Dose: 100 mls/hr Documented by: [id number] Infusion: 05/15/21 01:39 Dose: 100 mls/hr Documented by: [id number] Admin: 05/14/21 19:31 Dose: 100 mls/hr Documented by: [id number] Infusion: 05/14/21 19:31 Dose: 80 mls/hr Documented by: [id number] Admin: 05/14/21 10:36 Dose: 80 mls/hr Documented by: [id number] Infusion: 05/14/21 08:57 Dose: 80 mls/hr Documented by: [id number] Admin: 05/13/21 20:27 Dose: 80 mls/hr Documented by: [id number] Isosorbide Mononitrate (Isosorbide Wheeler Extended Rel 30 Mg Tabcr) 30 mg PO DAILY NAJMA Stop: 06/11/21 08:59 Last Admin: 05/15/21 09:19 Dose: 30 mg Documented by: [id number] Admin: 05/14/21 10:31 Dose: 30 mg Documented by: [id number] Admin: 05/13/21 08:14 Dose: 30 mg Documented by: [id number] Admin: 05/12/21 06:18 Dose: 30 mg Documented by: [id number] Metoprolol Tartrate (Metoprolol Tartrate 1 Mg/Ml Vial) 5 mg IV NOW STA Stop: 05/12/21 05:16 Last Admin: 05/12/21 06:55 Dose: Not Given Documented by: [id number] Pantoprazole Sodium (Pantoprazole 40 Mg Tab) 40 mg PO BID NAJMA Stop: 06/11/21 08:59 Last Admin: 05/15/21 10:40 Dose: 40 mg Documented by: [id number] Admin: 05/14/21 20:05 Dose: 40 mg Documented by: [id number] Admin: 05/14/21 10:27 Dose: 40 mg Documented by: [id number] Admin: 05/13/21 20:16 Dose: 40 mg Documented by: [id number] Admin: 05/13/21 08:13 Dose: 40 mg Documented by: [id number] Admin: 05/12/21 21:14 Dose: 40 mg Documented by: [id number] Admin: 05/12/21 09:21 Dose: 40 mg Documented by: [id number] Potassium Chloride (Potassium Chloride Crtab 20 Meq Tabcr) 20 meq PO BID NAJMA Stop: 06/11/21 18:44 Last Admin: 05/15/21 09:19 Dose: 20 meq Documented by: [id number] Admin: 05/14/21 20:06 Dose: 20 meq Documented by: [id number] Admin: 05/14/21 10:27 Dose: 20 meq Documented by: [id number] Admin: 05/13/21 20:16 Dose: 20 meq Documented by: [id number] Admin: 05/13/21 08:13 Dose: 20 meq Documented by: [id number] Admin: 05/12/21 21:46 Dose: 20 meq Documented by: [id number] Admin: 05/12/21 21:13 Dose: 20 meq Documented by: [id number] Prednisone (Prednisone 10 Mg Tablet) [facility] [place] Stop: 05/16/21 08:59 Last Admin: 05/15/21 09:19 Dose: 10 mg Documented by: [id number] Admin: 05/14/21 10:28 Dose: 10 mg Documented by: [id number] Admin: 05/13/21 08:13 Dose: 10 mg Documented by: [id number] Admin: 05/12/21 09:21 Dose: 20 mg Documented by: [id number] Sitagliptin Phosphate (Sitagliptin Phosphate 25 Mg Tab) 50 mg PO DAILY NAJMA Stop: 06/11/21 08:59 Last Admin: 05/15/21 09:19 Dose: 50 mg Documented by: [id number] Admin: 05/14/21 10:27 Dose: 50 mg Documented by: [id number] Admin: 05/13/21 08:13 Dose: 50 mg Documented by: [id number] Admin: 05/12/21 09:21 Dose: 50 mg Documented by: [id number] Discharge Plan Visit Data Chief Complaint: Weakness Stated Complaint: WEAKNESS,TIRED,HIGH BP AND SUGAR ED Provider: Maria A Zapata Discharge Problem: Hyperglycemia, Weakness, Hypertensive urgency Patient Disposition: Admitted As Inpatient Discharge Instructions Interventions: ED Discharge Assessment Last Done: 05/12/21 04:52
--- NOTE | 2021-05-15 18:51 | Discharge Summary ---
Date of Service May 15, 2021 Admission HPI Per Admitting Provider Rock Soto is an 80 y/o male w/ PMHx of DM2, CKD3, CAD prostate/colon CA in remission, IPMN, DVT/PE, and PMR who presents w/ generalized wkness/fatigue x 1 month and elevated BP of 236/11 at home (his normal is 145/80, though he does not check regularly). He took his AM meds (but not the nighttime antihypertensives). He saw pcp last week for the ongoing wkness/fatigue/chills/hot flashes and was started on prednisone taper (40x3d, 30x3d, 20x3d, 10x3d), currently at 2nd day of the 20mg dose. The prednisone is not helping his symptoms. He had SBP to 250 during his last hospital admission here in January 2021 and required ICU admission for Cardene drip. Denies LIAO, cp. No new blurry vision (chronic s/p cataracts). Mild LADD not new. No abd pain, n/v. Denies confusion. Denies hx of thyroid disease. Denies unintentional wt wt loss. ED course: IV hydralazine x3 w/o improvement in BP. 210s systolic at time of my exam ~8PM. Notable home medications Eliquis 2.5 BID (decreased from 5 BID by PCP last week) Coreg 25 BID, felodipine ER 10 qhs, Imdur ER 30 daily Januvia 50 daily Admission Exam Per Admitting Provider General: Grossly A&O. NAD. Cooperative. Frail/weak appearing. HEENT: Atraumatic, normocephalic. EOMI. PERRL. Neck is supple. No LAD. Pulm: CTAB. -wheezes, -rales, -rhonchi. No respiratory distress. Cardiac: RRR, -mrg. Radial pulses intact and symmetrical. cap refill <2sec. Trace RLE edema. No calf swelling/ttp. Abdominal: Nontender, soft. Obese abd which per patient is not new. Neuro: CN II-XII intact. Normal strength and sensation of extremities. Integ: Warm, dry, intact Principal Diagnosis Babesiosis, weakness Discharge Exam GENERAL : No acute distress EYES: No icterus, gaze conjugate NOSE: No evidence of epistaxis MOUTH: No lesions or candidiasis NECK: Supple LUNGS: CTA B/L, no wheezes, rales or rhonchi HEART: Regular, rate controlled ABDOMEN: Soft, NT, ND, BS Present EXTREMITIES: No LE edema, pedal pulses intact NEURO: A&OX3 Discharge Data Allergies Allergy/AdvReac Type Severity Reaction Status Date / Time latex Allergy Intermediate Rash Unverified 05/11/21 16:57 Consultations 05/11/21 19:37 ED Decision to Admit Stat 05/12/21 15:07 Consult Health Information Management Routine Ordered Studies 05/11/21 17:11 CT head/brain wo con Stat 05/12/21 08:00 US renal/blad retro comp Routine 05/12/21 08:30 US duplex renal artery Routine Hospital Course (1) Babesiosis: Continue azithromycin 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 Neurological status is improved significantly since starting antibiotics (2) Weakness: Suspect acute on chronic due to babesiosis. Consider neurology evaluation if Parkinson's still of concern after treatment for babesioses. Continue PT/OT * Repeat physical therapy completed today. Patient cleared for discharge home from physical therapy perspective (3) Hypertensive urgency: Continuing his routine medications appears to have resolved his elevated blood pressure. US renal artery doppler normal Concerningly he is taking KCl 40 meq PO BID without any good explanation of pathology requiring this aldosterone and renin concentration levels pending (4) Acute kidney injury superimposed on chronic kidney disease: -Unclear baseline as Cr on discharge in January 1.63 but was as low as 1.18 during that admission (although suspect this was artificial with IV fluids given). -Based on prior values in 2019 -Continue to trend creatinine -Down to 1.85. 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 (5) Elevated troponin: -Suspect demand-ischemia. -Consistent with prior values in January in same setting of hypertensive urgency. -No chest pain. Hemodynamically stable (6) Polymyalgia rheumatica: -ESR is 15 -HIM consulted for last PCP outpatient note. Continue home dose of prednisone on discharge (7) CAD (coronary artery disease): -Non-obstructive single vessel disease on cardiac cath in 2019. -Continue Eliquis, carvedilol, atorvastatin. -Elevated troponin with no significant EKG changes. -Troponin downtrended -No chest pain (8) Pulmonary emboli: Diagnosed in 01/2021 Pt aware that Eliquis 5mg BID dose is recommended for PE, 2.5mg BID dosing is dose reduction approved for Afib but not FDA approved/recommended for PEs. Pt has had 2 episodes of epistaxis requiring hospitalization and age >80 with impared renal function. Has had risk/benefits discussion as outpatient, and revisited risk/benefit discussion at time of admission. On shared decisionmaking will continue 2.5mg BID dosing of Eliquis. Pt understands this is not the recommended dose for PEs and may be sub-therapeutic, but feels that benefit outweighs risk given past history and recurrent bleeding. Will continue 2.5mg BID dosing (9) DM II (diabetes mellitus, type II), controlled: HbA1C 6.8 in January. Continue sitagliptin 50mg PO daily T2DM diet VTE Prophylaxis - Eliquis Diet - T2DM, low Na, Heart healthy Disposition -discharge home today. Physical therapy repeated and cleared for discharge home. Talk to patient's girlfriend Cat who feels as though she can manage him at home. Total Time Total Time Spent Total Time Spent (In Minutes): 50 minutes Discharge Plan Discharge Items Patient Disposition: Home - Self-Care Reason For Visit: GENERALIZED WEAKNESS, HYPERTENSIVE URGENCY Discharge Diagnosis: Babesiosis, Weakness Activity: Resume your previous activity Lifting: Gradually increase as tolerated Bathing: No limitations Sexual Activity: Wait until after follow-up appointment Exercise/Sports: Gradually increase as tolerated Weightbearing: Full weightbearing Non-emergency contact: Primary Care Provider Call non-emergency contact if: you have any medication questions, your symptoms worsen and you have a fever Follow-up/Referrals: Toni Madera DO [Primary Care Provider] - (Follow up within two weeks) Diet: Carb Consistent or DM2 and Heart Healthy Addtl Attending Provider Instructions: You were admitted with weakness and found to have an infection that can so metimes cause neurological weakness and other issues. This infection is call Babesiosis. You are being prescribed medication call Atovaquone and should take this medication twice daily until done. You should continue to take all of your other medications as prescribed. Please follow up with your primary care provider within the next two weeks. Pending Studies at Discharge: No Stand-Alone Forms: [facility] Medications and DC Order Prescriptions: New atovaquone [Mepron] 750 mg/5 mL suspension 750 mg PO Q12H Qty: 210 RF: 0 potassium chloride 20 mEq Tablet,Er Particles/Crystals 20 meq PO BID Qty: 30 RF: 0 azithromycin 500 mg tablet 500 mg PO DAILY 8 Days Qty: 8 RF: 0 Continued carvedilol 25 mg tablet 25 mg PO BID RF: 0 isosorbide mononitrate 30 mg tablet extended release 24 hr 30 mg PO DAILY RF: 0 prednisone 1 mg tablet 1 mg PO TID RF: 0 Januvia 50 mg tablet 50 mg PO DAILY RF: 0 atorvastatin 40 mg tablet 40 mg PO QAM RF: 0 famotidine 40 mg tablet 40 mg PO HS RF: 0 felodipine 10 mg tablet extended release 24 hr 10 mg PO HS RF: 0 pantoprazole 40 mg tablet,delayed release (DR/EC) 40 mg PO BID RF: 0 B12 Active 1,000 mcg Tablet,Chewable 1,000 mcg PO QAM RF: 0 sodium chloride [Saline Mist] 0.65 % Aerosol,[place] 2 spray NA QID Qty: 15 RF: 0 prednisone 10 mg tablet 10 mg PO UD RF: 0 calcium carbonate [Tums] 200 mg calcium (500 mg) Tablet,Chewable 200 mg PO HS PRN (Reason: Indigestion) RF: 0 Eliquis 2.5 mg Tablet 2.5 mg PO BID RF: 0 Discontinued potassium chloride 20 mEq tablet,ER particles/crystals 40 meq PO BID RF: 0 Discharge Orders: Discharge Order (Routine); Ordered 05/15/21 Ordered By: Ricardo Resendiz Admission Data Admit Date/Time: 05/13/21 20:12 Attending Provider: Solomon Beavers Admit Provider: Nicolas Damian Primary Care Provider: Toni Madera Other Providers: Nura Rader Other Interventions: Discharge Summary Assessment (RN) Last Done: 05/15/21 15:36 Supervising Physician Co-Signing Physician Notes Patient seen and examined, chart reviewed, case discussed with Ricardo Resendiz PA-C and I agree with the assessment and plan as above. General: A&Ox3. NAD. Cooperative. HEENT: Atraumatic, normocephalic. Pulm: CTAB A&P. -wheezes, -rales, -rhonchi. Symmetrical chest rise. No increase work of breathing. No respiratory distress. Cardiac: RRR, -mrg. Radial pulses intact and symmetrical. Abdominal: Nontender, nondistended, soft. BS present. All labs and images reviewed Coding Level of Care Code D/C DAY MANAGEMENT >30 MINS Diagnoses Babesiosis B60.00 Weakness R53.1 Hypertensive urgency I16.0 Acute kidney injury superimposed on chronic kidney disease N17.9; N18.9 Elevated troponin R77.8 Polymyalgia rheumatica M35.3 CAD (coronary artery disease) I25.10 Pulmonary emboli I26.99 DM II (diabetes mellitus, type II), controlled E11.9 Time Spent (min) 50
[2021-05-16] MEDS ORDERED: ATOVAQUONE 750 MG/5 ML UDC PO SCH
[2021-05-19 15:57] LABS: Renin Activity 0.23 ng/mL/h (0.25-5.82)
== END 2021-05-15 16:20 | disposition home or self-care (01) | DRG 867 ==
LOC: ED 14:17 → 3E 14:17 → SUATTDRO 05-12 05:00 → 2W 05-12 07:23 → 2N 05-12 09:14

== ENCOUNTER 2021-05-25 18:37 | Inpatient (IN) ==
--- NOTE | 2021-05-25 19:22 | XRay Report ---
XR chest 1V portable HISTORY: 80 years-old Male Chest Pain acute atypical chest pain COMPARISON: Chest radiograph 05/11/2021 TECHNIQUE: Portable AP view of the chest FINDINGS: Cardiac silhouette is moderately enlarged, unchanged. There is no pneumothorax, pleural effusion, air space consolidation or overt pulmonary edema. Degenerative changes of the shoulders and spine. IMPRESSION: Cardiomegaly without acute process. ACT 112: Negative or not required by law. The above report was generated using voice recognition software. It may contain grammatical, syntax o r spelling errors. Electronically signed by: Scott Keating M.D. 05/25/2021 7:20 PM
[2021-05-25 19:36] LABS: Basophils # (auto) 0.01 K/uL (0-0.2); Basophils % (auto) 0.2 %; Eosinophils # (auto) 0.11 K/uL (0-0.5); Eosinophils % (auto) 1.7 %; Hematocrit (blood only) 32.8 % (42-52); Hemoglobin 10.1 g/dL (14.0-18.0); Immature Granulocytes # (auto) 0.02 K/uL (0.00-0.02); Immature Granulocytes % (auto) 0.3 %; Lymphocytes # (auto) 1.05 K/uL (1.2-3.4); Lymphocytes % (auto) 16.3 %; Mean Corpuscular Hemoglobin 22.2 pg (25-34); Mean Corpuscular Hgb Conc 30.8 g/dL (32-36); Mean Corpuscular Volume 72.1 fL (80-100); Mean Platelet Volume 9.7 fL (7.4-10.4); Monocytes # (auto) 0.64 K/uL (0.11-0.59); Monocytes % (auto) 9.9 %; Neutrophils # (auto) 4.61 K/uL (1.4-6.5); Neutrophils % (auto) 71.6 %; Platelet Count 219 K/uL (130-400); RDW Coefficient of Variation 16.6 % (11.5-14.5); RDW Standard Deviation 43.2 fL (36.4-46.3); Red Blood Count 4.55 M/uL (4.7-6.1); White Blood Count 6.44 K/uL (4.8-10.8)
[2021-05-25 19:51] LABS: INR 1.1 (0.9-1.1); Partial Thromboplastin Ratio 1.1; Partial Thromboplastin Time 28.9 Seconds (21.0-31.0); Prothrombin Time 10.9 Seconds (9.0-12.0)
[2021-05-25 19:52] LABS: Alanine Aminotransferase 20 U/L (12-78); Albumin Level 3.1 gm/dl (3.4-5.0); Aspartate Aminotransferase 12 U/L (15-37); BUN Creatinine Ratio 13.1 (10-20); Blood Urea Nitrogen 26 mg/dl (7-18); Calcium 8.7 mg/dl (8.5-10.1); Carbon Dioxide 26 mmol/L (21-32); Chloride 114 mmol/L (98-107); Est GFR (African American) 36.1 ml/min; Est GFR (Non-African American) 31.2 ml/min; Glucose 108 mg/dl (70-99); Potassium 4.5 mmol/L (3.5-5.1); Sodium 144 mmol/L (136-145)
[2021-05-25 20:06] LABS: Albumin Globulin Ratio 0.9 (0.9-2); Alkaline Phosphatase 69 U/L (45-117); Bilirubin,Total 0.5 mg/dl (0.2-1); Globulin 3.4 gm/dl (2.5-4.0); Hypochromasia Present; Ovalocytes 1+; Schistocytes 1+; Total Protein 6.5 gm/dl (6.4-8.2); Troponin I 0.075 ng/ml (0-0.045)
[2021-05-25] MEDS ORDERED: hydrALAZINE HCL 20 MG/ML VIAL IV STA (20:13)
[2021-05-25] MEDS ORDERED: carvediloL 25 MG TAB PO ONE (20:14)
--- NOTE | 2021-05-25 20:18 | Emergency Department Note ---
Impression & Plan HTN (hypertension), Chest pain, CKD (chronic kidney disease) ED Provider Note NAME: EDWIN SUGGS AGE: 80 SEX: M : 1940 ARRIVES VIA: Walk-In INFORMANT: Patient ED PROVIDER(S): Zoran Sharp DO CHIEF COMPLAINT: Chest pain and HTN HPI: Patient is an 80-year-old male with w/ PMHx of DM2, CKD3, CAD prostate/colon CA in remission, IPMN, DVT/PE, and PMR who presents the ER for feeling weak. This started earlier today. Patient is also complaining of some chest pain which occurred for about an hour today at 5 PM. Denies any belly pain nausea vomiting or diarrhea. No dysuria, urgency, or frequency. He notes his blood pressures have been significantly elevated in the 200s. This feels like his previous visit. He has taken all of his medications today including his blood pressure medications with the exception of his blood pressure medication which she takes at 8 PM. ROS: See above HPI for pertinent positives & negatives. A total of 10 systems reviewed and were otherwise negative. PAST MEDICAL HISTORY:See Below PAST SURGICAL HISTORY:See Below FAMILY HISTORY:See Below SOCIAL HISTORY:See Below HOME MEDICATIONS:See Below ALLERGIES:See Below VITALS:See Below PHYSICAL EXAMINATION: GENERAL: Sitting up in bed, alert, well appearing, well nourished, no distress, non-toxic EYE EXAM: normal conjunctiva. OROPHARYNX: no exudate, no erythema, lips, buccal mucosa, and tongue normal and mucous membranes are moist NECK: supple, no nuchal rigidity, no adenopathy, non-tender LUNGS: Clear to auscultation. Normal chest wall mechanics HEART: no murmurs, S1 normal and S2 normal ABDOMEN: abdomen soft, non-tender, normo-active bowel sounds, no masses, no rebound or guarding. UPPER EXTREMITIES: upper extremities are grossly normal. LOWER EXTREMITIES: No pitting edema. NEURO EXAM: Normal sensorium, cranial nerves II-XII grossly intact, normal speech, no gross weakness of arms, no gross weakness of legs. MEDICAL DECISION MAKING: Patient is an 80-year-old male who presents the ER for the above-stated complaint. IV was established blood work was obtained. Labs shows no significant leukocytosis and mild anemia 10. INR was unremarkable. BMP with a creatinine of 2. LFTs and bilirubin was unremarkable. Troponin was checked was 0.075 which actually better than where she normally is. Covid was negative. EKG was unremarkable. Patient's pressures were slightly elevated at 220. She was given hydralazine. Patient was updated and discussed the hospitalist minute for further work-up. Triage Nursing notes reviewed. Limited review of prior medical records performed Vital Signs: reviewed and remarkable for HTN Differential diagnosis: Differential diagnoses includes but is not limited to acute coronary syndrome, myocardial infarction, pericarditis, pulmonary embolus, aortic dissection, pneumonia, pneumothorax, musculoskeletal, shingles, esophageal. ER treatment provided: See below Diagnostics interpreted by me: ECG: Sinus rhythm rate of 62 Normal axis No PVCs QTC 424 Cardiac Monitoring: An order was placed for continuous cardiac monitoring. The m onitor shows a rate of 62 with sinus rhythm. Laboratory studies: As stated above and show below. Imaging studies: Portable AP upright 1 view chest was unremarkable Consultation(s): none Procedures: none Critical Care: None Past Med/Surg History Medical History DVT (deep venous thrombosis) Hepatitis B History of pulmonary embolism HTN (hypertension) IPMN (intraductal papillary mucinous neoplasm) Polymyalgia rheumatica Weakness Surgical History Hx of cardiac cath Family History Other Family history non-contributory Social History Smoking Status: Never smoker Second Hand Exposure: No; Hx Alcohol Use: No Hx Substance Use: No Preferred Language: Citizen [place] Communication Ability: Effective Electric Fork Operator Required: No Beliefs That Will Affect Care: None Current Living Situation: Significant Other Current Living Situation Comment: girlfriend Feels Safe at Home: Yes Assistive Devices: Walker Allergies Allergies Allergy/AdvReac Type Severity Reaction Status Date / Time latex Allergy Intermediate Rash Unverified 05/25/21 21:27 Home Meds Home Medications Medication Instructions Recorded Confirmed carvedilol 25 mg tablet 25 mg PO BID 06/24/19 05/25/21 isosorbide mononitrate 30 mg 30 mg PO DAILY 06/24/19 05/25/21 tablet,extended release 24 hr prednisone 1 mg tablet 1 mg PO TID 06/24/19 05/25/21 sitagliptin 50 mg tablet (Januvia) 50 mg PO DAILY 06/24/19 05/25/21 mecobalamin (vitamin B12) 1,000 1,000 mcg PO QAM 02/20/21 05/25/21 mcg chewable tablet (B12 Active) pantoprazole 40 mg tablet,delayed 40 mg PO BID 02/20/21 05/25/21 release atorvastatin 40 mg tablet 40 mg PO QAM 02/27/21 05/25/21 famotidine 40 mg tablet 40 mg PO HS 02/27/21 05/25/21 felodipine 10 mg tablet,extended 10 mg PO HS 02/27/21 05/25/21 release 24 hr apixaban 2.5 mg tablet (Eliquis) 2.5 mg PO BID 05/11/21 05/25/21 calcium carbonate 200 mg calcium 200 mg PO HS PRN 05/11/21 05/25/21 (500 mg) chewable tablet (Tums) Previous Rx's Medication Instructions Recorded sodium chloride 0.65 % nasal spray 2 spray NA QID #15 ml 02/23/21 aerosol (Saline Mist) atovaquone 750 mg/5 mL oral 750 mg PO Q12H #210 ml 05/15/21 suspension (Mepron) potassium chloride 20 mEq 20 meq PO BID #30 tab 05/15/21 tablet,extended release(part/cryst) Results & Data (ED) Vital Signs Vital Signs - 24 hr 05/25/21 18:45 05/25/21 19:46 05/25/21 21:20 Temperature 36.5 C Temperature Source Temporal Artery Scan Pulse Rate 69 Pulse Rate [Apical] 60 72 Pulse Rhythm [Apical] Regular Regular Pulse Strength [Apical] Normal Respiratory Rate 18 16 16 Respiratory Effort / Characteristics Non-Labored Non-Labored Respiratory Depth Normal Normal Respiratory Pattern Regular Regular Blood Pressure 207/90 H Blood Pressure [Right Arm] 214/94 H 212/112 H Blood Pressure Mean 129 Blood Pressure Mean [Right Arm] 134 145 Blood Pressure Position [Right Arm] Lying Sitting Pulse Oximetry 95 98 97 Oxygen Delivery Method Room Air Room Air Room Air Sepsis Recent Fever Within 48 Hours No Sepsis New/Unexplained Change in Mental Status No Sepsis Action Taken by Nursing No Action Required 05/25/21 22:50 Temperature Temperature Source Pulse Rate Pulse Rate [Apical] 77 Pulse Rhythm [Apical] Regular Pulse Strength [Apical] Respiratory Rate 16 Respiratory Effort / Characteristics Non-Labored Respiratory Depth Normal Respiratory Pattern Regular Blood Pressure Blood Pressure [Right Arm] 181/85 H Blood Pressure Mean Blood Pressure Mean [Right Arm] 117 Blood Pressure Position [Right Arm] Lying Pulse Oximetry 97 Oxygen Delivery Method Room Air Sepsis Recent Fever Within 48 Hours Sepsis New/Unexplained Change in Mental Status Sepsis Action Taken by Nursing Laboratory Data Result diagrams: 05/25/21 19:20 05/25/21 19:20 Lab Results 05/25/21 05/25/21 05/25/21 Range/Units 19:20 19:20 19:20 WBC 6.44 (4.8-10.8) K/uL RBC 4.55 L (4.7-6.1) M/uL Hgb 10.1 L (14.0-18.0) g/dL Hct 32.8 L (42-52) % MCV 72.1 L (80-100) fL MCH 22.2 L (25-34) pg MCHC 30.8 L (32-36) g/dL RDW Std Deviation 43.2 (36.4-46.3) fL RDW Coeff of Derek 16.6 H (11.5-14.5) % Plt Count 219 (130-400) K/uL MPV 9.7 (7.4-10.4) fL Immature Gran % (Auto) 0.3 % Neut % (Auto) 71.6 % Lymph % (Auto) 16.3 % [place] % (Auto) 9.9 % Eos % (Auto) 1.7 % Baso % (Auto) 0.2 % Neut # (Auto) 4.61 (1.4-6.5) K/uL Lymph # (Auto) 1.05 L (1.2-3.4) K/uL [place] # (Auto) 0.64 H (0.11-0.59) K/uL Eos # (Auto) 0.11 (0-0.5) K/uL Baso # (Auto) 0.01 (0-0.2) K/uL Immature Gran # (Auto) 0.02 (0.00-0.02) K/uL Hypochromasia Present Ovalocytes 1+ Schistocytes 1+ PT 10.9 (9.0-12.0) Seconds INR 1.1 (0.9-1.1) APTT 28.9 (21.0-31.0) Seconds PTT Ratio 1.1 Sodium 144 (136-145) mmol/L Potassium 4.5 (3.5-5.1) mmol/L Chloride 114 H (98-107) mmol/L Carbon Dioxide 26 (21-32) mmol/L Anion Gap 4.0 (3-11) BUN 26 H (7-18) mg/dl Creatinine 1.97 H (0.6-1.4) mg/dl Est Cr Clr Drug Dosing Not Reportable Est GFR ( Amer) 36.1 ml/min Est GFR (Non-Af Amer) 31.2 ml/min BUN/Creatinine Ratio 13.1 (10-20) Glucose 108 H (70-99) mg/dl Calcium 8.7 (8.5-10.1) mg/dl Total Bilirubin 0.5 (0.2-1) mg/dl AST 12 L (15-37) U/L ALT 20 (12-78) U/L Alkaline Phosphatase 69 (45-117) U/L Troponin I 0.075 H* (0-0.045) ng/ml Total Protein 6.5 (6.4-8.2) gm/dl Albumin 3.1 L (3.4-5.0) gm/dl Globulin 3.4 (2.5-4.0) gm/dl Albumin/Globulin Ratio 0.9 (0.9-2) COVID-19 Eval Order SARS-CoV-2 (PCR) (Negative) 05/25/21 05/25/21 Range/Units 21:14 21:14 WBC (4.8-10.8) K/uL RBC (4.7-6.1) M/uL Hgb (14.0-18.0) g/dL Hct (42-52) % MCV (80-100) fL MCH (25-34) pg MCHC (32-36) g/dL RDW Std Deviation (36.4-46.3) fL RDW Coeff of Derek (11.5-14.5) % Plt Count (130-400) K/uL MPV (7.4-10.4) fL Immature Gran % (Auto) % Neut % (Auto) % Lymph % (Auto) % [place] % (Auto) % Eos % (Auto) % Baso % (Auto) % Neut # (Auto) (1.4-6.5) K/uL Lymph # (Auto) (1.2-3.4) K/uL [place] # (Auto) (0.11-0.59) K/uL Eos # (Auto) (0-0.5) K/uL Baso # (Auto) (0-0.2) K/uL Immature Gran # (Auto) (0.00-0.02) K/uL Hypochromasia Ovalocytes Schistocytes PT (9.0-12.0) Seconds INR (0.9-1.1) APTT (21.0-31.0) Seconds PTT Ratio Sodium (136-145) mmol/L Potassium (3.5-5.1) mmol/L Chloride (98-107) mmol/L Carbon Dioxide (21-32) mmol/L Anion Gap (3-11) BUN (7-18) mg/dl Creatinine (0.6-1.4) mg/dl Est Cr Clr Drug Dosing Est GFR ( Amer) ml/min Est GFR (Non-Af Amer) ml/min BUN/Creatinine Ratio (10-20) Glucose (70-99) mg/dl Calcium (8.5-10.1) mg/dl Total Bilirubin (0.2-1) mg/dl AST (15-37) U/L ALT (12-78) U/L Alkaline Phosphatase (45-117) U/L Troponin I (0-0.045) ng/ml Total Protein (6.4-8.2) gm/dl Albumin (3.4-5.0) gm/dl Globulin (2.5-4.0) gm/dl Albumin/Globulin Ratio (0.9-2) COVID-19 Eval Order Covid19 at [facility] SARS-CoV-2 (PCR) NEGATIVE (Negative) Administered Medications Discontinued Medications Aspirin (Aspirin Chew 324 Mg) 324 mg PO NOW STA Stop: 05/25/21 20:25 Last Admin: 05/25/21 20:27 Dose: 324 mg Documented by: [id number] Carvedilol (Carvedilol 25 Mg Tab) 25 mg PO NOW ONE Stop: 05/25/21 20:15 Last Admin: 05/25/21 20:26 Dose: 25 mg Documented by: [id number] Hydralazine HCl (Hydralazine Hcl 20 Mg/Ml Vial) 10 mg IV NOW STA Stop: 05/25/21 20:14 Last Admin: 05/25/21 20:18 Dose: 10 mg Documented by: [id number] Imaging Data Radiologist's Impression: Chest X-Ray 05/25/21 18:48 XR chest 1V portable HISTORY: 80 years-old Male Chest Pain acute atypical chest pain COMPARISON: Chest radiograph 05/11/2021 TECHNIQUE: Portable AP view of the chest FINDINGS: Cardiac silhouette is moderately enlarged, unchanged. There is no pneumothorax, pleural effusion, airspace consolidation or overt pulmonary edema. Degenerative changes of the shoulders and spine. IMPRESSION: Cardiomegaly without acute process. ACT 112: Negative or not required by law. The above report was generated using voice recognition software. It may contain grammatical, syntax or spelling errors. Electronically signed by: Scott Keating M.D. 05/25/2021 7:20 PM Discharge Plan Visit Data Chief Complaint: Hypertension Stated Complaint: HIGH BLOOD PRESSURE, WEAKNESS ED Provider: Zoran Sharp Discharge Problem: HTN (hypertension), Chest pain, CKD (chronic kidney disease) Forms Stand Alone Forms: My [facility] [place] [facility] Prescriptions Prescriptions: No Action carvedilol 25 mg tablet 25 mg PO BID RF: 0 isosorbide mononitrate 30 mg tablet extended release 24 hr 30 mg PO DAILY RF: 0 prednisone 1 mg tablet 1 mg PO TID RF: 0 Januvia 50 mg tablet 50 mg PO DAILY RF: 0 atorvastatin 40 mg tablet 40 mg PO QAM RF: 0 famotidine 40 mg tablet 40 mg PO HS RF: 0 felodipine 10 mg tablet extended release 24 hr 10 mg PO HS RF: 0 pantoprazole 40 mg tablet,delayed release (DR/EC) 40 mg PO BID RF: 0 B12 Active 1,000 mcg Tablet,Chewable 1,000 mcg PO QAM RF: 0 sodium chloride [Saline Mist] 0.65 % Aerosol,[place] 2 spray NA QID Qty: 15 RF: 0 calcium carbonate [Tums] 200 mg calcium (500 mg) Tablet,Chewable 200 mg PO HS PRN (Reason: Indigestion) RF: 0 Eliquis 2.5 mg Tablet 2.5 mg PO BID RF: 0 atovaquone [Mepron] 750 mg/5 mL suspension 750 mg PO Q12H Qty: 210 RF: 0 potassium chloride 20 mEq Tablet,Er Particles/Crystals 20 meq PO BID Qty: 30 RF: 0 Referrals Referrals: Toni Madera DO [Primary Care Provider] - Discharge Problem: HTN (hypertension) Qualifiers: Hypertension type: unspecified Qualified Code(s): I10 - Essential (primary) hypertension Chest pain Qualifiers: Chest pain type: unspecified Qualified Code(s): R07.9 - Chest pain, unspecified CKD (chronic kidney disease) Qualifiers: Chronic kidney disease stage: unspecified stage Qualified Code(s): N18.9 - Chronic kidney disease, unspecified
[2021-05-25] MEDS ORDERED: ASPIRIN CHEW 324 MG PO STA (20:24)
--- NOTE | 2021-05-25 21:16 | History & Physical Report ---
Date of Service May 25, 2021 Assessment & Plan (1) Hypertensive emergency: Plan: Mr. Soto is an 80 yo M who came in for evaluation of weakness. - systolic BP >180 with signs and symptoms of end organ damage (elevated trop) - continue home felodipine dose, which is maxed out at 10mg, daily. I am going to increase home coreg dose from 25mg BID to 50mg BID. - as for additional anti-hypertensive options: RAI/ARB was initially part of patient's regimen but stopped, likely due to progressive CKD; for same reason, would not add thiazide. - patient did have partial work up for secondary causes of HTN during past admission, including a renal artery doppler which showed no evidence of stenosis; aldosterone level was not elevated and renin level was mildly low at 0.23. TSH was also checked, no evidence of hypothyroidism. - Patient has not had dexamethasone suppression test or catecholamines checked. Sleep study could also be done. (2) Weakness: Plan: - etiology uncertain: may be post-infectious (babesiosis), in which case hydroxychloroquine could be considered vs. 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 during last admission - has been treated appropriately with 10 days of azithromycin and atovaquone - consider repeating peripheral smear to confirm eradication (4) Elevated troponin: Plan: - trop at 0.075 - suspect secondary to hypertension, however it is also possible trop is still declining from higher elevation during recent admission - trend serial levels - EKG without ST segment changes - echo was done during last admission, will defer at this time - cardiac monitoring - nitro prn (5) CAD (coronary artery disease): Plan: - continue home isosorbide mononitrate, atorvastatin, and coreg (6) Microcytic anemia: Plan: - chronic - Hgb 10.1. MCV 72 - iron level was checked in 01/2021 and was low at 27 - begin PO supplement - underlying CKD likely contributory (7) DM II (diabetes mellitus, type II), controlled: Plan: - A1c at goal at 6.8 in 01/2021 - hold home januvia while inpatient - SSI ordered - carb consistent diet - continue high intensity statin - not on rai/arb, lyla due to CKD (8) CKD (chronic kidney disease), stage III: Plan: - chronic - Cr at 1.97, appears to be near baseline - US from last admission revealed hypertension as likely cause of kidney disease - renally dose meds as appropriate (9) Pulmonary emboli: Plan: - chronic - continue Eliquis 2.5mg BID - a lengthy discussion was held during last admission regarding dose as 5mg BID dose is recommended for the indication of pulmonary embolism, although he did have 2 episodes of epistaxis requiring hospitalization, age is > 80 years and has impaired renal function. Ultimately, 2.5mg BID dosing was agreed on thorough shared decision making (10) Polymyalgia rheumatica: Plan: - continue home dose prednisone 1mg TID (11) GERD (gastroesophageal reflux disease): Plan: - continue home dose famotidine DVT ppx: on eliquis Diet: Heart healthy, Carb consistent Code: conditional, does not want intubation, okay with cardiac resuscitation Dispo: Med/tele History of Present Illness Primary Care Provider: Toni Madera DO Mr. Soto is an 80 yo gentleman with a complex PMHs who came to [facility] for evaluation of generalized weakness. 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 He did complete a 10 day course of azithromycin and atovaquone for the tick borne illness. He has struggled to get his BP uncontrol for quite some time. During a previous admission in 01/2021, he had a SBP to 250 and required ICU admission for Cardene drip. He says he can recognized when his blood pressure is high, as he generally begins to feel weak. He does endorse chest discomfort. His home BP medication regimen consists of felodipine 10mg daily and coreg 25mg BID. He denies any missed doses. Social Hx: No smoking, no etoh. He does not use NSAIDS due to his underlying kidney disease. No caffeinated beverages. In the ED, he was afebrile with a normal HR but a blood pressure fo 214/94. His WBC was normal although he did have associated lymphopenia. His hgb was 10.1, MCV at 72. His coags were WNL. Creatinine 1.97. Trop at 0.075. EKG showed NSR at 62 bpm, normal QTc interval, no ST segment changes. CXR showing no active disease. He was given ASA 324mg, his evening Coreg dose of 25mg, and hydralazine 10mg. Allergies Allergy/AdvReac Type Severity Reaction Status Date / Time latex Allergy Intermediate Rash Unverified 05/25/21 21:27 Home Medications Medication Instructions Recorded Confirmed Type carvedilol 25 mg tablet 25 mg PO BID 06/24/19 05/25/21 History isosorbide mononitrate 30 mg 30 mg PO DAILY 06/24/19 05/25/21 History tablet,extended release 24 hr prednisone 1 mg tablet 1 mg PO TID 06/24/19 05/25/21 History sitagliptin 50 mg tablet (Januvia) 50 mg PO DAILY 06/24/19 05/25/21 History mecobalamin (vitamin B12) 1,000 1,000 mcg PO QAM 02/20/21 05/25/21 History mcg chewable tablet (B12 Active) pantoprazole 40 mg tablet,delayed 40 mg PO BID 02/20/21 05/25/21 History release sodium chloride 0.65 % nasal spray 2 spray NA QID #15 ml 02/23/21 05/25/21 Rx aerosol (Saline Mist) atorvastatin 40 mg tablet 40 mg PO QAM 02/27/21 05/25/21 History famotidine 40 mg tablet 40 mg PO HS 02/27/21 05/25/21 History felodipine 10 mg tablet,extended 10 mg PO HS 02/27/21 05/25/21 History release 24 hr apixaban 2.5 mg tablet (Eliquis) 2.5 mg PO BID 05/11/21 05/25/21 History calcium carbonate 200 mg calcium 200 mg PO HS PRN 05/11/21 05/25/21 History (500 mg) chewable tablet (Tums) atovaquone 750 mg/5 mL oral 750 mg PO Q12H #210 ml 05/15/21 05/25/21 Rx suspension (Mepron) potassium chloride 20 mEq 20 meq PO BID #30 tab 05/15/21 05/25/21 Rx tablet,extended release(part/cryst) Past Med/Surg History Medical History DVT (deep venous thrombosis) Hepatitis B History of pulmonary embolism HTN (hypertension) IPMN (intraductal papillary mucinous neoplasm) Polymyalgia rheumatica Weakness Surgical History Hx of cardiac cath Family History Other Family history non-contributory Social History Smoking Status: Never smoker Second Hand Exposure: No; Hx Alcohol Use: No Hx Substance Use: No Preferred Language: Bulgarian Communication Ability: Effective Spout Positioner Required: No Beliefs That Will Affect Care: None marital status: / Current Living Situation: Significant Other Current Living Situation Comment: girlfriend Other Information That Helps Us Care for You: No Feels Safe at Home: Yes Safety Concerns: Feels Safe At This Time Assistive Devices: None and Cane Review of Systems Review of Systems: All systems reviewed & are unremarkable except as noted in HPI & below Gastrointestinal: no nausea, no vomiting and no diarrhea/loose stools Genitourinary: no dysuria Physical Exam Constitutional: WD/WN, vitals as above cooperative; no acute distress Eyes: + anicteric sclerae ENMT: external ear and nose normal, oropharynx normal Neck: trachea midline Respiratory: normal respiratory effort, lungs clear to auscultation Cardiovascular: RRR, no murmur, no edema Heart Sounds: normal S1 and normal S2 Gastrointestinal (Abdomen): normal bowel sounds, soft, nontender, no hepatosplenomegaly Musculoskeletal: Head/Neck/Chest: normocephalic and head atraumatic Skin: no rashes, warm and dry Neurologic: PERRL, EOMI, accommodation nl, no face palsy, no dysarthria CN's II-XI intact bilaterally and moves all extremities Psychiatric: A+Ox3, euthymic affect Results & Data Results & Data ([facility]) Vital Signs (Past 12 Hours) Vital Signs Temp Pulse Pulse Resp BP BP Pulse Ox 05/25/21 19:46 60 16 214/94 H 98 05/25/21 18:45 36.5 C 69 18 207/90 H 95 Supervising Physician Co-Signing Physician Notes Attending addendum: I have physically seen this patient, have supervised the medical residents activities, and agree with the H&P unless as otherwise noted. Assessment and Plan: Elevated troponin/hypertensive urgency- The patient will be admitted to telemetry for serial cardiac enzymes, serial EKG's, cardiac rhythm monitoring. Echocardiogram done last admission Continue felodipine 10 mg daily Increase carvedilol from 25 mg p.o. twice daily to 50 mg p.o. twice daily Secondary hypertension work-up negative last admission: Negative renal artery Doppler, aldosterone level. We will check serum catecholamines and urine metanephrines Generalized weakness- May be left over from babesiosis infection which he is still finishing one of his medications, having just finished azithromycin today. Likely a nutritional issue somewhat as well, along with deconditioning Consult PT/OT Babesiosis- Finishing 10 days of azithromycin and atovaquone Repeat peripheral smear Remaining orders and notations as noted Resident Activity Tracking Resident Involvement: Resident Care Provided Care Provided: Adult Hospital Medicine
[2021-05-25] MEDS ORDERED: ACETAMINOPHEN 325 MG TAB PO PRN (23:52)
[2021-05-25] MEDS ORDERED: ONDANSETRON INJ 2 MG/ML 2 ML VIAL IV PRN (23:52)
[2021-05-25] MEDS ORDERED: POLYETHYLENE (MIRALAX) 17 GM PACK PO PRN (23:52)
[2021-05-25] MEDS ORDERED: METOPROLOL TARTRATE 1 MG/ML VIAL IV PRN (23:52)
[2021-05-26] MEDS ORDERED: GLUCOSE 40% GEL 15 GM TUBE PO PRN (01:41)
[2021-05-26] MEDS ORDERED: GLUCAGON FOR INJ 1 MG VIAL SQ PRN (01:41)
[2021-05-26] MEDS ORDERED: DEXTROSE 50% 50 ML SYRINGE IV PRN (01:41)
[2021-05-26] MEDS ORDERED: GLUCOSE 10 TABS/TUBE PO PRN (01:41)
[2021-05-26] MEDS ORDERED: CARBOHYDRATES FOR HYPOGLYCEMIA PO PRN (01:41)
[2021-05-26] MEDS ORDERED: NITROGLYCERIN 2% OINTMENT 30GM TUBE EXT PRN (01:48)
[2021-05-26] MEDS: FERROUS SULFATE 325 MG TAB PO SCH ×2 (08:30→18:02)
[2021-05-26] MEDS: carvediloL 25 MG TAB PO SCH ×2 (08:30→20:54)
[2021-05-26] MEDS: PANTOprazole 40 MG TAB PO SCH ×2 (08:31→20:54)
[2021-05-26] MEDS: APIXABAN 2.5 MG TAB PO SCH ×2 (08:31→20:54)
[2021-05-26] MEDS: POTASSIUM CHLORIDE CRTAB 20 MEQ TABCR PO SCH ×2 (08:31→20:55)
[2021-05-26] MEDS: ISOSORBIDE MONO EXTENDED REL 30 MG TABCR PO SCH (08:31)
[2021-05-26] MEDS: ATORVASTATIN 40 MG TAB PO SCH (08:31)
[2021-05-26] MEDS: INSULIN ASPART 100 UNITS/ML 3 ML PEN SC SCH ×4 (08:32→20:51)
[2021-05-26] MEDS ORDERED: predniSONE 1 MG TAB PO SCH (09:00)
[2021-05-26] MEDS ORDERED: predniSONE 10 MG TABLET PO SCH (09:00)
[2021-05-26] MEDS ORDERED: carvediloL 25 MG TAB PO SCH (09:00)
--- NOTE | 2021-05-26 09:51 | Hospitalist Progress Note ---
Date of Service May 26, 2021 Assessment & Plan (1) Hypertensive emergency: Plan: Mr. Soto is an 80 yo M who came in for evaluation of weakness. - systolic BP >180 with signs and symptoms of end organ damage (elevated trop) - continue home felodipine dose, which is maxed out at 10mg, daily. Increased Carvedilol 25 -> 50mg PO BID. - as for additional anti-hypertensive options: RAI/ARB was initially part of patient's regimen but stopped, likely due to progressive CKD; for same reason, would not add thiazide. - patient did have partial work up for secondary causes of HTN during past admission, including a renal artery doppler which showed no evidence of stenosis; aldosterone level was not elevated and renin level was mildly low at 0.23. TSH was also checked, no evidence of hypothyroidism. - Blood pressure tends to normalize with usual medications on last admission (2) Weakness: Plan: - patient has similar neurological exam to when I saw him last admission. No significant improvement with babesiosis treatment therefore as before will consult neurology to assess for Parkinson's. - PT/OT ordered (3) Babesiosis: Plan: - will repeat peripheral smear to assess for eradication (4) Elevated troponin: Plan: - suspect demand-ischemia in setting of hypertension. Serial troponins stable. - echo was done during last admission, will defer at this time - cardiac monitoring - nitro prn (5) CAD (coronary artery disease): Plan: - continue home isosorbide mononitrate, atorvastatin, and coreg (6) Microcytic anemia: Plan: - chronic - Hgb 10.1. MCV 72 - iron level was checked in 01/2021 and was low at 27 - begin PO supplement - underlying CKD likely contributory (7) DM II (diabetes mellitus, type II), controlled: Plan: - A1c at goal at 6.8 in 01/2021 - hold home januvia while inpatient - SSI ordered - carb consistent diet - continue high intensity statin - not on rai/arblyla due to CKD (8) CKD (chronic kidney disease), stage III: Plan: - chronic - Cr at 1.97, appears to be near baseline - US from last admission revealed hypertension as likely cause of kidney disease - renally dose meds as appropriate (9) Pulmonary emboli: Plan: - chronic - continue Eliquis 2.5mg BID - a lengthy discussion was held during last admission regarding dose as 5mg BID dose is recommended for the indication of pulmonary embolism, although he did have 2 episodes of epistaxis requiring hospitalization, age is > 80 years and has impaired renal function. Ultimately, 2.5mg BID dosing was agreed on thorough shared decision making (10) Polymyalgia rheumatica: Plan: - continue home dose prednisone 1mg TID (11) GERD (gastroesophageal reflux disease): Plan: - continue home dose famotidine Plan: DVT ppx: on eliquis Diet: Heart healthy, Carb consistent Code: conditional, does not want intubation, okay with cardiac resuscitation Dispo: Med/tele Admission and Anticipated Discharge Date Admission Date: May 25, 2021 Subjective Reports no significant improvement in his generalized weakness since last admission. Continues to have cogwheel rigidity and slow gait. Feels he was a better for 1 day prior to going home then got worse the following day back to his generalized weakness. Prior discharge summary noted he made significant improvement in his neurological status with treatment for babesiosis but he appears similar to when I saw him on May 12 at the present time. His blood pressure tends to normalize with his routine medications. Aldosterone and renin levels taken on last admission were unremarkable. Review of Systems Review of Systems: All systems reviewed & are unremarkable except as noted in HPI & below Physical Exam Constitutional: WD/WN, vitals as above Eyes: PERRL, conjunctivae normal, anicteric sclerae ENMT: external ear and nose normal, oropharynx normal Respiratory: normal respiratory effort, lungs clear to auscultation Cardiovascular: RRR, no murmur, no edema Gastrointestinal (Abdomen): normal bowel sounds, soft, nontender, no hepatosplenomegaly Skin: no rashes, warm and dry Neurologic: moves all extremities and awake; no focal motor deficits and not confused Speech / Cognition: normal speech Motor/Sensory: no tremor and no pronator drift Coordination: normal [id number] test Cogwheel rigidity RUE > LUE, slow movements of all 4 extremities Psychiatric: Orientation: alert and oriented x 3 Eye Contact: good eye contact Affect: + flat affect Results & Data Results & Data ([facility]) Vital Signs (Past 12 Hours) Vital Signs Temp Pulse Pulse Resp BP BP BP 05/26/21 07:36 36.7 C 64 16 165/74 H 05/26/21 04:00 37.1 C 66 18 173/75 H 05/26/21 00:57 67 05/25/21 23:52 36.8 C 61 18 177/79 H 05/25/21 23:18 36.7 C 77 16 189/88 H 05/25/21 22:50 77 16 181/85 H Pulse Ox 05/26/21 07:36 94 05/26/21 04:00 96 05/26/21 00:57 05/25/21 23:52 97 05/25/21 23:18 97 05/25/21 22:50 97 PG Care Time/CCT Total # of Minutes Spent Total Time Spent with Patient: Total time spent is greater than 50% in coordination of care (as documented) at patient's floor/unit and/or counseling patient: Coding Level of Care Code 48079 Subseq Obs Care Lvl 3 Diagnoses Hypertensive emergency I16.1 Weakness R53.1 Babesiosis B60.00 Elevated troponin R77.8 CAD (coronary artery disease) I25.10 Microcytic anemia D50.9 DM II (diabetes mellitus, type II), controlled E11.9 CKD (chronic kidney disease), stage III N18.30 Pulmonary emboli I26.99 Polymyalgia rheumatica M35.3 GERD (gastroesophageal reflux disease) K21.9
--- NOTE | 2021-05-26 11:35 | Neurology Consultation ---
Date of Consultation May 26, 2021 Assessment & Plan (1) Parkinsonism: I suspect this patient has idiopathic Parkinson's disease or parkinsonism. He is mildly rigid and bradykinetic. He does have a mild intermittent upper extremity resting tremor. He also has a shuffling type gait. A recent CT of the head was not suggestive of normal pressure hydrocephalus. In speaking with the patient, it sounds like the symptoms began prior to his diagnosis of babesiosis. I would recommend completion of a gadolinium enhanced brain MRI for further assessment. It would also be reasonable to start a low-dose of Sinemet. Would start patient with one half of a 25/100 mg Sinemet tablet taken 3 times per day. Further dosage increases would be made in the outpatient setting. Follow-up in neurology clinic with an APC in 3 to 4 weeks would be reasonable. History of Present Illness Reason for Consultation: Parkinsonism Requesting Physician: Jd Xavier MD Attending Physician: Jd Xavier MD History of Present Illness The patient is an 80-year-old male who presented to the emergency department yesterday with weakness, hypertensive urgency, recent admission and discharge from the [facility] for treatment of babesiosis. Has been observed to have some symptoms potentially concerning for Parkinson's disease including bradykinesia, rigidity and tremor prompting request for neurological assessment. The patient does remark that his slowness and tremor have been present for quite some time, probably at least the past year but getting gradually worse over time. He remarks that he has been taking very short shuffling type steps. Her tremor affects the right hand more than the left and seems to be an intermittent problem. His handwriting has become quite sloppy although not clearly micrographic. He denies experiencing significant orthostatic dizziness but does endorse a longstanding history of restless leg syndrome. Patient reports that his memory has been fair. 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 He lives with his girlfriend. He did have a CT of the head completed on May 11, 2021 for dizziness, gait dysfunction, weakness occurring the context of hypertensive urgency. No significant abnormalities were identified at that time, no findings suggestive of normal pressure hydrocephalus, no hemorrhage. I did review the images as well as the radiologist's interpretation of this test. Past medical history is notable for polymyalgia rheumatica, type 2 diabetes mellitus, and pulmonary embolism, on Eliquis. Allergies Allergy/AdvReac Type Severity Reaction Status Date / Time latex Allergy Intermediate Rash Unverified 05/25/21 21:27 Home Medications Medication Instructions Recorded Confirmed Type carvedilol 25 mg tablet 25 mg PO BID 06/24/19 05/25/21 History isosorbide mononitrate 30 mg 30 mg PO DAILY 06/24/19 05/25/21 History tablet,extended release 24 hr prednisone 1 mg tablet 1 mg PO TID 06/24/19 05/25/21 History sitagliptin 50 mg tablet (Januvia) 50 mg PO DAILY 06/24/19 05/25/21 History mecobalamin (vitamin B12) 1,000 1,000 mcg PO QAM 02/20/21 05/25/21 History mcg chewable tablet (B12 Active) pantoprazole 40 mg tablet,delayed 40 mg PO BID 02/20/21 05/25/21 History release sodium chloride 0.65 % nasal spray 2 spray NA QID #15 ml 02/23/21 05/25/21 Rx aerosol (Saline Mist) atorvastatin 40 mg tablet 40 mg PO QAM 02/27/21 05/25/21 History famotidine 40 mg tablet 40 mg PO HS 02/27/21 05/25/21 History felodipine 10 mg tablet,extended 10 mg PO HS 02/27/21 05/25/21 History release 24 hr apixaban 2.5 mg tablet (Eliquis) 2.5 mg PO BID 05/11/21 05/25/21 History calcium carbonate 200 mg calcium 200 mg PO HS PRN 05/11/21 05/25/21 History (500 mg) chewable tablet (Tums) atovaquone 750 mg/5 mL oral 750 mg PO Q12H #210 ml 05/15/21 05/25/21 Rx suspension (Mepron) potassium chloride 20 mEq 20 meq PO BID #30 tab 05/15/21 05/25/21 Rx tablet,extended release(part/cryst) Patient History Medical History DVT (deep venous thrombosis) Hepatitis B History of pulmonary embolism HTN (hypertension) IPMN (intraductal papillary mucinous neoplasm) Polymyalgia rheumatica Weakness Surgical History Hx of cardiac cath Family History Other Family history non-contributory Social History Smoking Status: Never smoker Second Hand Exposure: No; Hx Alcohol Use: No Hx Substance Use: No Preferred Language: Lao Communication Ability: Effective Primary Class Teacher Required: No Beliefs That Will Affect Care: None Current Living Situation: Significant Other Current Living Situation Comment: girlfriend Other Information That Helps Us Care for You: No Feels Safe at Home: Yes Safety Concerns: Feels Safe At This Time Assistive Devices: Cane Review of Systems Constitutional: no fever and no chills Eyes: no blind spots and no diplopia Ear, Nose, Mouth, Throat: no ear pain and no hearing loss Respiratory: no cough and no dyspnea Cardiovascular: no chest pain and no palpitations Gastrointestinal: no constipation and no diarrhea/loose stools Genitourinary: no urinary incontinence or no urinary urgency Musculoskeletal: no muscle weakness and no muscle atrophy Integumentary: no rash and no lesions Neurologic: as per Subjective / HPI, + gait abnormality, + unsteadiness, + tremor(s) and + memory loss Psychiatric: no behavioral changes, no depression, no abnormal sleep pattern, no anxiety and no hallucinations Hematologic / Lymphatic: no easy bruising and no lymphadenopathy Exam (Neuro) Constitutional: well developed and well nourished; no acute distress Eyes: normal visual beasley by confrontation, PERRL, normal accommodation and EOM intact bilaterally; no fundoscopic abnormality, no nystagmus and no papilledema Cardiovascular: Vessels: normal carotid upstroke; no carotid bruit Neurologic: Oriented to:: Person, Place and Time Memory: Short Term Intact and Remote Intact Attention: Span Intact and Concentration Intact Language: Naming Objects and Repeating Phrases Speech Fluency: negative Dysarthria Speech Aphasia: negative Aphasia Fund of Knowledge: Current Events, Past History and Vocabulary Cranial Nerves: Normal II (Visual beasley full to confrontation, visual acuity normal), III, IV, (Pupils equal round reactive to light and accommodation, eye movements normal), V (Facial sensation intact), VII (There is no facial droop or weakness), VIII (Hearing intact), IX, X (Palate elevates to midline), XI (Shoulder shrug intact) and XII (Tongue protrudes to midline) Motor Strength: Normal Lower Extremities and Normal Upper Extremities; negative Pronator Drift Motor Tone: Normal Lower Extremities and Normal Upper Extremities Rigidity: Rigidity Muscle Bulk/Involuntary Movements: Rest Tremor (Arm) (mild, R>L, intermittent); negative Muscle Atrophy Sensation: Light Touch Intact, Pain/Temperature Intact, Vibration Intact and Proprioception Intact Coordination: Limited Balance; negative Dysdiadochokinesia, Finger-Nose Abnormal or Heel-Nicole Abnormal Deep Tendon Reflexes: Rt Triceps: 2+, Lt Triceps: 2+, Rt Biceps: 2+, Lt Biceps: 2+, Rt Brachioradialis: 2+, Lt Brachioradialis: 2+, Rt Patellar: 2+, Lt Patellar: 2+, Rt Ankle: 2+ and Lt Ankle: 2+ Special Tests: negative Babinski Present Gait: Stooped and Shuffling Details: Patient is bradykinetic, exhibits generalized rigidity, no cogwheeling, however. Takes very short shuffling type steps. Results & Data ([facility]) Vital Signs (Past 12 Hours) Vital Signs Temp Pulse Pulse Resp BP BP Pulse Ox 05/26/21 07:36 36.7 C 64 16 165/74 H 94 05/26/21 04:00 37.1 C 66 18 173/75 H 96 05/26/21 00:57 67 05/25/21 23:52 36.8 C 61 18 177/79 H 97 Laboratory Results WBC 6.44, hemoglobin 10.1, hematocrit 32.8, platelet count 219, sodium 144, potassium 4.5, BUN 26, creatinine 1.97, glucose 108, calcium 8.7, AST 12, ALT [address] of the head is as described in the HPI. Coding Level of Care Code 51132 Initial Inpt Care Lvl 3 Diagnoses Parkinsonism G20
[2021-05-26] MEDS ORDERED: ALUMINUM/MAGNESIUM SUSP 30 ML UDC PO PRN (14:17)
--- NOTE | 2021-05-26 19:47 | Billing Data ---
Date of Service May 26, 2021 Coding Level of Care Code 61279 Initial Inpt Care Lvl 3
[2021-05-26] MEDS: FELODIPINE 5 MG TABCR PO SCH (20:54)
[2021-05-26] MEDS: FAMOTIDINE 40 MG TABLET PO SCH (20:55)
--- NOTE | 2021-05-27 05:34 | Electrocardiogram Report ---
Test Reason : Blood Pressure : / mmHG Vent. Rate : 062 BPM Atrial Rate : 062 BPM P-R Int : 136 ms QRS Dur : 088 ms QT Int : 418 ms P-R-T Axes : 075 -11 -06 degrees QTc Int : 424 ms Sinus rhythm with occasional Premature ventricular complexes Otherwise normal ECG When compared with ECG of 12-MAY-2021 08:20, Premature ventricular complexes are now Present Premature atrial complexes are no longer Present T wave inversion less evident in Inferior leads Confirmed by Jd Ayala ([id number]) on 05/27/2021 5:34:11 AM Referred By: REFERRED SELF Confirmed By:Jd Ayala
--- NOTE | 2021-05-27 07:25 | Magnetic Resonance Report ---
MR brain wo con HISTORY: 80 years-old Male parkinsonism acute leukocytosis with high blood pressure and double visio n COMPARISON: Head CT 05/11/2021 TECHNIQUE: Multiplanar multisequence MRI of the brain was obtained without the use of IV contrast. FINDINGS: Beeswax Bleacher localizer images demonstrate no gross extracranial abnormality. There is no restricted diffusio n to suggest acute or subacute infarct. No acute intracranial hemorrhage, midline shift, abnormal ext ra-axial collection, hydrocephalus or intracranial mass. No pathologic blooming artifact. Age-related involutional changes. Minimal white matter T2/FLAIR hyperintensities suggest chronic microvascular i schemic disease. 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 Cerebral venous sinuses and major arterial flow voids appear patent. Small right mastoid effusion. Mi nimal mucosal thickening of the paranasal sinuses. Prior bilateral lens repair. Unremarkable skull an d soft tissues. IMPRESSION: 1. No acute intracranial abnormality. No acute or subacute infarct. 2. Age-related involutional changes with minimal chronic microvascular ischemic disease. 3. Small chronic left cerebellar lacunar infarct. ACT 112: Negative or not required by law. The above report was generated using voice recognition software. It may contain grammatical, syntax o r spelling errors. Electronically signed by: Scott Keating M.D. 05/27/2021 7:24 AM
[2021-05-27] MEDS: INSULIN ASPART 100 UNITS/ML 3 ML PEN SC SCH ×4 (08:01→20:08)
[2021-05-27] MEDS: FERROUS SULFATE 325 MG TAB PO SCH ×2 (08:03→16:56)
[2021-05-27] MEDS: APIXABAN 2.5 MG TAB PO SCH ×2 (08:03→20:15)
[2021-05-27] MEDS: ATORVASTATIN 40 MG TAB PO SCH (08:04)
[2021-05-27] MEDS: CARBIDOPA/LEVODOPA 25/100MG TAB PO SCH ×3 (08:04→20:15)
[2021-05-27] MEDS: ISOSORBIDE MONO EXTENDED REL 30 MG TABCR PO SCH (08:05)
[2021-05-27] MEDS: carvediloL 25 MG TAB PO SCH ×2 (08:05→20:16)
[2021-05-27] MEDS: PANTOprazole 40 MG TAB PO SCH ×2 (08:06→20:16)
[2021-05-27] MEDS: POTASSIUM CHLORIDE CRTAB 20 MEQ TABCR PO SCH ×2 (08:06→20:16)
[2021-05-27 08:22] LABS: Basophils # (auto) 0.01 K/uL (0-0.2); Basophils % (auto) 0.2 %; Eosinophils % (auto) 1.8 %; Hematocrit (blood only) 35.6 % (42-52); Hemoglobin 11.1 g/dL (14.0-18.0); Immature Granulocytes # (auto) 0.02 K/uL (0.00-0.02); Immature Granulocytes % (auto) 0.4 %; Lymphocytes # (auto) 1.16 K/uL (1.2-3.4); Lymphocytes % (auto) 20.5 %; Mean Corpuscular Hemoglobin 22.5 pg (25-34); Mean Corpuscular Hgb Conc 31.2 g/dL (32-36); Mean Corpuscular Volume 72.1 fL (80-100); Mean Platelet Volume 9.8 fL (7.4-10.4); Monocytes # (auto) 0.36 K/uL (0.11-0.59); Monocytes % (auto) 6.4 %; Neutrophils % (auto) 70.7 %; Platelet Count 203 K/uL (130-400); RDW Coefficient of Variation 16.7 % (11.5-14.5); RDW Standard Deviation 43.5 fL (36.4-46.3); Red Blood Count 4.94 M/uL (4.7-6.1); White Blood Count 5.65 K/uL (4.8-10.8)
[2021-05-27 10:00] LABS: Albumin Globulin Ratio 0.9 (0.9-2); Albumin Level 3.2 gm/dl (3.4-5.0); BUN Creatinine Ratio 14.4 (10-20); Bilirubin,Total 0.8 mg/dl (0.2-1); Calcium 8.6 mg/dl (8.5-10.1); Creatinine Clr Calc Pharmacy 35.3 ml/min; Est GFR (African American) 44.1 ml/min; Est GFR (Non-African American) 38.1 ml/min; Ferritin 195.1 ng/ml (8-388); Globulin 3.5 gm/dl (2.5-4.0); Potassium 3.6 mmol/L (3.5-5.1); Total Protein 6.7 gm/dl (6.4-8.2)
--- NOTE | 2021-05-27 14:32 | Hospitalist Progress Note ---
Date of Service May 27, 2021 Assessment & Plan (1) Hypertensive emergency: Plan: Mr. Soto is an 80 yo M who came in for evaluation of weakness. - systolic BP >180 with signs and symptoms of end organ damage (elevated trop) - continue home felodipine dose, which is maxed out at 10mg, daily. Reduce carvedilol back to his usual - as for additional anti-hypertensive options: RAI/ARB was initially part of patient's regimen but stopped, likely due to progressive CKD; for same reason, would not add thiazide. - patient did have partial work up for secondary causes of HTN during past admission, including a renal artery doppler which showed no evidence of sten osis; aldosterone level was not elevated and renin level was mildly low at 0.23. TSH was also checked, no evidence of hypothyroidism. - Blood pressure tends to normalize with usual medications on last admission (2) Weakness: Plan: - appreciated neurology consult - starting Sinemet, will follow up with neurology as outpatient - PT/OT at baseline (3) Babesiosis: Plan: - peripheral smear negative. Had adequate treatment for this. (4) Elevated troponin: Plan: - suspect demand-ischemia in setting of hypertension. Serial troponins stable. - echo was done during last admission, will defer at this time - cardiac monitoring - nitro prn (5) CAD (coronary artery disease): Plan: - continue home isosorbide mononitrate, atorvastatin, and coreg (6) Microcytic anemia: Plan: - chronic - Hgb 10.1. MCV 72 - iron level was checked in 01/2021 and was low at 27 - begin PO supplement - underlying CKD likely contributory (7) DM II (diabetes mellitus, type II), controlled: Plan: - A1c at goal at 6.8 in 01/2021 - hold home Januvia while inpatient - SSI ordered - carb consistent diet - continue high intensity statin - not on rai/arb, lyla due to CKD (8) CKD (chronic kidney disease), stage III: Plan: - chronic - Cr at 1.97, appears to be near baseline - US from last admission revealed hypertension as likely cause of kidney disease - renally dose meds as appropriate (9) Pulmonary emboli: Plan: - chronic - continue Eliquis 2.5mg BID - a lengthy discussion was held during last admission regarding dose as 5mg BID dose is recommended for the indication of pulmonary embolism, although he did have 2 episodes of epistaxis requiring hospitalization, age is > 80 years and has impaired renal function. Ultimately, 2.5mg BID dosing was agreed on thorough shared decision making (10) Polymyalgia rheumatica: Plan: - continue home dose prednisone 1mg TID (11) GERD (gastroesophageal reflux disease): Plan: - continue home dose famotidine Plan: DVT ppx: on eliquis Diet: Heart healthy, Carb consistent Code: conditional, does not want intubation, okay with cardiac resuscitation Dispo: Med/tele Admission and Anticipated Discharge Date Admission Date: May 25, 2021 Subjective No chest pain, shortness of breath or headache. Feeling nauseous with diaphoresis this morning and dizzy with increased dose of carvedilol and relative low blood pressure compared to his usual. Improved throughout the day. Review of Systems Review of Systems: All systems reviewed & are unremarkable except as noted in HPI & below Physical Exam Constitutional: WD/WN, vitals as above ENMT: external ear and nose normal, oropharynx normal Respiratory: normal respiratory effort, lungs clear to auscultation Cardiovascular: RRR, no murmur, no edema Gastrointestinal (Abdomen): normal bowel sounds, soft, nontender, no hepatosplenomegaly Skin: no rashes, warm and dry Neurologic: moves all extremities and awake; no focal motor deficits and not confused Speech / Cognition: normal speech Motor/Sensory: no tremor and no pronator drift Psychiatric: Orientation: alert and oriented x 3 Eye Contact: good eye contact Affect: + flat affect Results & Data Results & Data ([facility]) Vital Signs (Past 12 Hours) Vital Signs Temp Pulse Pulse Pulse Resp BP BP 05/27/21 10:50 36.4 C L 59 L 102/61 05/27/21 07:45 69 05/27/21 07:20 37.0 C 66 16 178/78 H 05/27/21 04:30 36.9 C 89 18 126/74 Pulse Ox 05/27/21 10:50 97 05/27/21 07:45 05/27/21 07:20 97 05/27/21 04:30 95 PG Care Time/CCT Total # of Minutes Spent Total Time Spent with Patient: Total time spent is greater than 50% in coordination of care (as documented) at patient's floor/unit and/or counseling patient: Coding Level of Care Code 78235 Subseq Hosp Care Lvl 2 Diagnoses Hypertensive emergency I16.1 Weakness R53.1 Babesiosis B60.00 Elevated troponin R77.8 CAD (coronary artery disease) I25.10 Microcytic anemia D50.9 DM II (diabetes mellitus, type II), controlled E11.9 CKD (chronic kidney disease), stage III N18.30 Pulmonary emboli I26.99 Polymyalgia rheumatica M35.3 GERD (gastroesophageal reflux disease) K21.9
[2021-05-27] MEDS: FELODIPINE 5 MG TABCR PO SCH (20:16)
[2021-05-27] MEDS: FAMOTIDINE 40 MG TABLET PO SCH (20:16)
[2021-05-28] MEDS: INSULIN ASPART 100 UNITS/ML 3 ML PEN SC SCH ×3 (08:41→17:17)
[2021-05-28] MEDS: PANTOprazole 40 MG TAB PO SCH (08:42)
[2021-05-28] MEDS: ISOSORBIDE MONO EXTENDED REL 30 MG TABCR PO SCH (08:43)
[2021-05-28] MEDS: POTASSIUM CHLORIDE CRTAB 20 MEQ TABCR PO SCH (08:43)
[2021-05-28] MEDS: carvediloL 25 MG TAB PO SCH (08:44)
[2021-05-28] MEDS: FERROUS SULFATE 325 MG TAB PO SCH ×2 (08:45→15:32)
[2021-05-28] MEDS: CARBIDOPA/LEVODOPA 25/100MG TAB PO SCH ×2 (08:45→15:32)
[2021-05-28] MEDS: APIXABAN 2.5 MG TAB PO SCH (08:45)
[2021-05-28] MEDS: ATORVASTATIN 40 MG TAB PO SCH (08:53)
[2021-05-28 11:46] VITALS: O2SAT 96
[2021-05-28 15:56] VITALS: PULSE 66; TEMP 97.9
--- NOTE | 2021-05-28 16:32 | Discharge Summary ---
Date of Service May 28, 2021 Admission HPI Per Admitting Provider Mr. Soto is an 80 yo gentleman with a complex PMHs who [facility] of generalized weakness. 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 He did complete a 10 day course of azithromycin and atovaquone for the tick borne illness. He has struggled to get his BP uncontrol for quite some time. During a previous admission in 01/2021, he had a SBP to 250 and required ICU admission for Cardene drip. He says he can recognized when his blood pressure is high, as he generally begins to feel weak. He does endorse chest discomfort. His home BP medication regimen consists of felodipine 10mg daily and coreg 25mg BID. He denies any missed doses. Social Hx: No smoking, no etoh. He does not use NSAIDS due to his underlying kidney disease. No caffeinated beverages. In the ED, he was afebrile with a normal HR but a blood pressure fo 214/94. His WBC was normal although he did have associated lymphopenia. His hgb was 10.1, MCV at 72. His coags were WNL. Creatinine 1.97. Trop at 0.075. EKG showed NSR at 62 bpm, normal QTc interval, no ST segment changes. CXR showing no active disease. He was given ASA 324mg, his evening Coreg dose of 25mg, and hydralazine 10mg. Principal Diagnosis Hypertensive emergency Parkinsonian Discharge Exam Constitutional WD/WN, vitals as above ENMT external ear and nose normal, oropharynx normal Respiratory normal respiratory effort, lungs clear to auscultation Cardiovascular RRR, no murmur, no edema Gastrointestinal (Abdomen) normal bowel sounds, soft, nontender, no hepatosplenomegaly Skin no rashes, warm and dry Neurologic moves all extremities and awake; no focal motor deficits and not confused Speech / Cognition: normal speech Motor/Sensory: no tremor and no pronator drift Coordination: normal [id number] test Continued cogwheel rigidity of RUE > LUE Psychiatric Orientation: alert and oriented x 3 Affect: + flat affect Discharge Data Allergies Allergy/AdvReac Type Severity Reaction Status Date / Time latex Allergy Intermediate Rash Unverified 05/25/21 21:27 Consultations 05/25/21 20:15 ED Decision to Admit Stat 05/26/21 09:46 Consult Neurology Routine Ordered Studies 05/26/21 11:35 MR brain wo con Routine IMPRESSION: 1. No acute intracranial abnormality. No acute or subacute infarct. 2. Age-related involutional changes with minimal chronic microvascular ischemic disease. 3. Small chronic left cerebellar lacunar infarct. Hospital Course (1) Hypertensive emergency: Rock Soto is an 80 year old male admitted to [facility] from May 25 - 2020 due to hypertensive emergency with blood pre ssure 214/94. This resolved with resumption of his usual medications. Attempt at increasing carvedilol led symptomatic low normal blood pressures 102/61, therefore no increase was recommended at this time. Due to your generalized weakness you were reviewed by neurology and recommended starting on Sinemet for suspected Parkinsons. He will follow up in neurology clinic in approximately 4 weeks. Serum metanephrines pending at time of discharge to further work up his secondary hypertension. (2) Weakness: (3) Babesiosis: (4) Elevated troponin: (5) CAD (coronary artery disease): (6) Microcytic anemia: (7) DM II (diabetes mellitus, type II), controlled: (8) CKD (chronic kidney disease), stage III: (9) Pulmonary emboli: (10) Polymyalgia rheumatica: (11) GERD (gastroesophageal reflux disease): Total Time Total Time Spent Total Time Spent (In Minutes): 35 Discharge Plan Discharge Items Patient Disposition: Home - Self-Care Reason For Visit: HYPERENSIVE EMERGENCY Discharge Diagnosis: Hypertensive emergency Parkinsonian Activity: Resume your previous activity Non-emergency contact: Primary Care Provider Call non-emergency contact if: you have any medication questions and your symptoms worsen Follow-up/Referrals: Rafael Ballesteros MD [Physician] - (4 week follow up) oTni Madera DO [Primary Care Provider] - Diet: Carb Consistent or DM2 and Low Sodium (2gm) Addtl Attending Provider Instructions: You were admitted to [facility] from May 25 - 2020 due to hypertensive emergency with blood pressure 214/94. This resolved with resumption of your usual medications. Attempt at increasing your carvedilol led symptomatic low normal blood pressures 102/61, therefore no increase was recommended at this time. Due to your generalized weakness you were reviewed by neurology and recommended starting on Sinemet for suspected Parkinson's. Please follow up in clinic in approximately 4 weeks. Kind regards, Dr Jd Xavier Pending Studies at Discharge: No Stand-Alone Forms: [facility], Smoking Cessation Medications and DC Order Prescriptions: New carbidopa-levodopa [Sinemet] 25-100 mg Tablet 0.5 tab PO TID Qty: 90 RF: 0 Continued carvedilol 25 mg tablet 25 mg PO BID RF: 0 isosorbide mononitrate 30 mg tablet extended release 24 hr 30 mg PO DAILY RF: 0 prednisone 1 mg tablet 1 mg PO TID RF: 0 Januvia 50 mg tablet 50 mg PO DAILY RF: 0 atorvastatin 40 mg tablet 40 mg PO QAM RF: 0 famotidine 40 mg tablet 40 mg PO HS RF: 0 felodipine 10 mg tablet extended release 24 hr 10 mg PO HS RF: 0 pantoprazole 40 mg tablet,delayed release (DR/EC) 40 mg PO BID RF: 0 B12 Active 1,000 mcg Tablet,Chewable 1,000 mcg PO QAM RF: 0 sodium chloride [Saline Mist] 0.65 % Aerosol,[place] 2 spray NA QID Qty: 15 RF: 0 calcium carbonate [Tums] 200 mg calcium (500 mg) Tablet,Chewable 200 mg PO HS PRN (Reason: Indigestion) RF: 0 Eliquis 2.5 mg Tablet 2.5 mg PO BID RF: 0 potassium chloride 20 mEq Tablet,Er Particles/Crystals 20 meq PO BID Qty: 30 RF: 0 Discontinued atovaquone [Mepron] 750 mg/5 mL suspension 750 mg PO Q12H Qty: 210 RF: 0 Discharge Orders: Discharge Order (Routine); Ordered 05/28/21 Ordered By: Jd Xavier Admission Data Admit Date/Time: 05/27/21 14:54 Attending Provider: Jd Xavier Admit Provider: Jessica Waters Primary Care Provider: Toni Madera Other Providers: Nura Rader ; Rafael Ballesteros Other Interventions: Discharge Summary Assessment (RN) Last Done: 05/28/21 17:28 Coding Level of Care Code D/C DAY MANAGEMENT >30 MINS Diagnoses Hypertensive emergency I16.1 Weakness R53.1 Babesiosis B60.00 Elevated troponin R77.8 CAD (coronary artery disease) I25.10 Microcytic anemia D50.9 DM II (diabetes mellitus, type II), controlled E11.9 CKD (chronic kidney disease), stage III N18.30 Pulmonary emboli I26.99 Polymyalgia rheumatica M35.3 GERD (gastroesophageal reflux disease) K21.9
[2021-05-28 17:33] VITALS: BP 149/70
[2021-05-29 19:26] LABS: Babesia microti DNA Detected (Not Detected)
[2021-06-05 14:31] LABS: Metanephrine, Plasma 93 pg/mL (<=57); Normetanephrine Plasma 303 pg/mL (<=148); Total Metanephrine Plasma 396 pg/mL (<=205)
== END 2021-05-28 18:56 | disposition home or self-care (01) | DRG 305 ==
LOC: 2W 18:37 → ED 18:37 → SUATTDRO 21:10 → 2W 23:18